=== PATIENT | male | born 1960 | race Caucasian/White ===

== ENCOUNTER 2020-12-20 16:36 | Inpatient (IN) | payer BC, OTHER ==
[~2020-12-20] VITALS: Ht 182 cm; Wt 69.4 kg
[2020-12-20] MEDS ORDERED: 1/2 NS IV SOLUTION 1,000 ML IV PRN (17:30)
[2020-12-20] MEDS ORDERED: ANTACID SUSP 30 ML UDC (MYLANTA) PO PRN (17:30)
[2020-12-20] MEDS ORDERED: ONDANSETRON 4 MG (ZOFRAN) ORAL DISSOLVE TAB SL PRN (17:30)
[2020-12-20] MEDS ORDERED: D5 1/2 NS 1000 ML IV SOLUTION 1,000 ML IV PRN (17:30)
[2020-12-20] MEDS: LORazepam INJ 2 MG/ML (ATIVAN) VIAL IV PRN ×5 (17:37→21:51)
[2020-12-20] MEDS: D5 1/2 NS W/KCL 20 MEQ/L 1,000 ML IV SCH (17:38)
[2020-12-20] MEDS ORDERED: CATHETER FLUSH 10 ML SYR IV PRN (17:45)
[2020-12-20] MEDS: THIAMINE INJECTION 100 MG, FOLIC ACID INJECTION 1 MG, MAGNESIUM SULFATE 2 GM, VITAMIN M... IV SCH ×5 (17:53)
[2020-12-20 18:02] LABS: BASOPHILS % (AUTO) 1 % (0-10); EOSINOPHILS # (AUTO) 0.1 10^3/uL (0.0-0.3); EOSINOPHILS % (AUTO) 1 % (0-10); HEMATOCRIT 39 % (40-54); HEMOGLOBIN 13.8 g/dL (13.3-17.7); LYMPHOCYTES # (AUTO) 0.3 10^3/uL (1.0-4.0); LYMPHOCYTES % (AUTO) 8 % (12-44); MEAN CORPUSCULAR HEMOGLOBIN 34 pg (25-34); MEAN CORPUSCULAR HGB CONC 36 g/dL (32-36); MEAN CORPUSCULAR VOLUME 94 fL (80-99); MEAN PLATELET VOLUME 10.1 fL (9.0-12.2); MONOCYTES # (AUTO) 0.7 10^3/uL (0.0-1.0); MONOCYTES % (AUTO) 15 % (0-12); NEUTROPHILS # (AUTO) 3.3 10^3/uL (1.8-7.8); NEUTROPHILS % (AUTO) 75 % (42-75); PLATELET COUNT 152 10^3/uL (130-400); WHITE BLOOD COUNT 4.4 10^3/uL (4.3-11.0)
[2020-12-20 18:17] LABS: ALBUMIN 4.1 GM/DL (3.2-4.5); CHLORIDE 91 MMOL/L (98-107); POTASSIUM 4.4 MMOL/L (3.6-5.0); SODIUM 126 MMOL/L (135-145)
[2020-12-20 18:18] LABS: AMMONIA 28 UMOL/L (11-32); INR 0.9 (0.8-1.4); PROTHROMBIN TIME PATIENT 12.3 SEC (12.2-14.7)
[2020-12-20 18:19] LABS: CALCIUM 9.6 MG/DL (8.5-10.1)
[2020-12-20 18:20] LABS: GLUCOSE 104 MG/DL (70-105); TOTAL PROTEIN 6.8 GM/DL (6.4-8.2)
[2020-12-20 18:21] LABS: CARBON DIOXIDE 23 MMOL/L (21-32)
[2020-12-20 18:23] LABS: ALKALINE PHOSPHATASE 94 U/L (40-136); CREATININE SERUM 0.65 MG/DL (0.60-1.30); GFR ESTIMATED 125
[2020-12-20 18:25] LABS: BUN/CREATININE RATIO 11
[2020-12-20 18:26] LABS: ALANINE AMINOTRANSFERASE 134 U/L (0-55)
[2020-12-20 18:43] LABS: LYMPHOCYTES % (MANUAL) 8 %; MONOCYTES % (MANUAL) 15 %; NEUTROPHILS % (MANUAL) 77 %; RBC MORPH NORMAL
[2020-12-20 18:53] LABS: BILIRUBIN,URINE NEGATIVE (NEGATIVE); CLARITY,URINE CLEAR; COLOR,URINE YELLOW; GLUCOSE, URINE (UA) NEGATIVE (NEGATIVE); KETONES,URINE TRACE (NEGATIVE); LEUKOCYTE ESTERASE ,URINE NEGATIVE (NEGATIVE); NITRITE,URINE NEGATIVE (NEGATIVE); PROTEIN,URINE 2+ (NEGATIVE)
[2020-12-20 19:06] LABS: AMORPHOUS SEDIMENT,UR FEW AMOR URATES /LPF; BACTERIA,URINE TRACE /HPF; HYALINE CASTS, URINE 0-2 /LPF; RBC,URINE 0-2 /HPF
[2020-12-20 19:56] VITALS: BP 142/92
--- NOTE | 2020-12-20 19:57 | History & Physical-Hospitalist ---
History of Present Illness HPI/Chief Complaint Mr. Salinas is a 50-year-old white male presented to the office at his 's insistence who accompanied him due to a recent history of falls. He reports his first fall on November 14 at which time he injured his low back. Following that time he has noted numbness in his legs and has had for 5 subsequent falls none from height. He denied headache but reported generalized weakness. He admitted to longstanding heavy alcohol consumption for which he reports he drinks Granda light 3-4 sixpacks per day. It has been 7 years since his last office visit and he only came in because of his 's insistence. Ports his appetite has been poor and he thinks he is probably lost 20 to 30 pounds by our office scales compared to 7 years ago he is down 40 pounds. He reports some nausea denies abdominal pain denies orange urine and he does not recall the last period of time he left without heavy alcohol consumption. [place] the [place] and has done so for many years is with no children denies DUIs and has had no previous hospital admission and was taking no medication ipnn-[id number] also denying illicit drug use. He reports onset of a tremor for at least the past several months worse with action less so at rest and noting that when he drinks his tremor goes away he denies knowledge of any fami ly history for tremor essential or Parkinson's disease. He denies night sweats chills fever orthopnea PND or pedal edema and denies abdominal distention is noted no melena or bright red blood per rectum. Date Seen 12/20/20 Time Seen by a Provider: 16:00 Attending Physician Raven Domínguez MD PCP Referring Physician Date of Admission Dec 20, 2020 at 16:49 Home Medications & Allergies Home Medications Reviewed patient Home Medication Reconciliation performed by pharmacy medication reconciliations photovoltaic installation technician and/or nursing. Patients Allergies have been reviewed. Allergies Allergies Coded Allergies No Known Drug Allergies (Unverified12/20/20) Past Poxffdu-Lmxdor-Qfyjxz Hx Patient Social History Tobacco Use?: No Smoking Status: Never a Smoker Use of E-Cig and/or Vaping dev: No Substance use?: No Alcohol Use?: Yes Alcohol type: Beer Alcohol Frequency: Daily Pt feels they are or have been: No Immunizations Up To Date First/Initial COVID19 Vaccinat: June ONE TIME DOSE VACCINATION Current Status Advance Directives: No Advance Directive Location: Home Communicates: Verbally Primary Language: Tajik Preferred Spoken Language: Tajik Implanted or Applied Medical D: None Review of Systems Constitutional: see HPI Physical Exam Physical Exam Vital Signs Vital Signs - First Documented 12/20/20 17:20 Pulse Ox 98 O2 Delivery Room Air Capillary Refill : Height, Weight, BMI Height: '" Weight: lbs. oz. kg; 219.44 BMI Method: General Appearance: Anxious, Mild Distress HEENT: Other (No scleral icterus extraocular muscles are intact with no difficulty with horizontal gaze or does seem to be a little bit of impairment with vertical gaze however pupils are equal round react to light and accommodation.) Neck: Full Range of Motion, Normal Inspection, Non Tender Respiratory: Chest Non Tender, Lungs Clear, Normal Breath Sounds, No Accessory Muscle Use, No Respiratory Distress Cardiovascular: Regular Rate, Rhythm, No Edema, No Gallop, No JVD, No Murmur, Normal Peripheral Pulses Gastrointestinal: Normal Bowel Sounds, No Organomegaly, No Pulsatile Mass, Non Tender, Soft, Other (Attention noted no telangiectasia or venous dilatation noted.) Neurologic/Psychiatric: Alert, diamond expert II-XII Norm as Tested (Mild agitation with some diaphoresis no evidence for alcohol on breath. There is no evidence for dysmetria with normal azskvo-mu-qvmj testing. Patient does have evidence for some intermittent asterixis and a tremor that is aggravated with activity course with no evidence for resting tremor. Patient has symmetrical weakness 4 out of 5 upper and lower extremities there is a white base somewhat halting gait there is some subjective diminishment in sensation in the lower extremities. Patellar reflexes are 2+ on the left 1+ on the right 1+ Achilles reflexes and 2+ biceps and brachioradialis reflexes bilaterally. X2 answers questions appropriately does not feel that he has been confused.), Other Results Results/Procedures Labs Laboratory Tests 12/20/20 17:50 Patient resulted labs reviewed. Assessment/Plan Admission Diagnosis 1.Alcohol use disorder with withdrawal cannot rule out Warnicke's for which the patient is at risk we will initiate IV thiamine Ativan and detox protocol. 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 Considering recent falls and low back pain lower extremity numbness will need to rule out DISABILITIES CAREGIVER as well as lumbar pathology will obtain MRI of the brain and L-spine in the morning with physical therapy consultation. 2. Hyponatremia likely secondary #1 the patient is eating without nausea will hold off on saline for now with repeat CMP in the morning however if his sodium is lower we will need to initiate intravenous normal saline. Complex medical management. Admission Status: Inpatient Order (span 2 midnights) Reason for Inpatient Admission: See #1 Critical Care Critically Ill Patient RAVEN DOMÍNGUEZ MD Dec 20, 2020 19:57
[2020-12-20 20:52] VITALS: BP 148/94
[2020-12-20 21:52] VITALS: BP 136/97
[2020-12-20 22:52] VITALS: BP 146/88
[2020-12-20] MEDS: LORazepam 1 MG (ATIVAN) TAB PO PRN (23:16)
[2020-12-20 23:22] VITALS: BP 146/88
[2020-12-20 23:52] VITALS: BP 128/76
[2020-12-21] VITALS (14 sets, daily range): BP systolic 119–166; BP diastolic 75–110
[2020-12-21] MEDS: D5 1/2 NS W/KCL 20 MEQ/L 1,000 ML IV SCH ×3 (00:36→12:11)
[2020-12-21] MEDS: LORazepam 1 MG (ATIVAN) TAB PO PRN ×5 (01:10→11:17)
[2020-12-21] MEDS: LORazepam INJ 2 MG/ML (ATIVAN) VIAL IV PRN ×3 (04:49→10:18)
[2020-12-21 05:56] LABS: ALBUMIN 3.6 GM/DL (3.2-4.5); POTASSIUM 4.2 MMOL/L (3.6-5.0)
[2020-12-21 05:57] LABS: CALCIUM 8.8 MG/DL (8.5-10.1)
[2020-12-21 06:00] LABS: BILIRUBIN,TOTAL 1.6 MG/DL (0.1-1.0)
[2020-12-21 06:02] LABS: CREATININE SERUM 0.73 MG/DL (0.60-1.30)
[2020-12-21] MEDS: THIAMINE INJECTION 100 MG, FOLIC ACID INJECTION 1 MG, MAGNESIUM SULFATE 2 GM, VITAMIN M... IV SCH ×5 (08:35)
[2020-12-21] MEDS ORDERED: GADOBUTROL 10 MMOL/10 ML (GADAVIST) VIAL IV ONE (09:15)
--- NOTE | 2020-12-21 10:16 | Diagnostic Imaging Report ---
CLINICAL INDICATIONS: Patient having weakness, alcohol withdrawal, and falls. EXAM: MRI of the brain performed without IV contrast. Sequences include sagittal T1, axial T2, axial flair, axial gradient echo, DWI, ADC map, and axial T1. COMPARISON: None. FINDINGS: There is motion artifact limiting evaluation of some sequences. There is no evidence of acute cerebral infarct, intracranial hemorrhage, or gross mass effect. The brain parenchymal volume appears appropriate for patient's age. There are focal and mildly confluent areas of high T2 signal white matter changes involving both cerebral hemispheres and periventricular regions, likely related to chronic small vessel ischemic disease. There is normal moseley-white matter distinction. There is no significant midline shift or herniation. The [place] vascular structures show no gross abnormality as visualized. The pituitary gland, sella, and suprasellar regions are unremarkable as visualized. There is prominence of the lateral and 3rd ventricles which appear mildly enlarged for degree of brain parenchymal volume loss. The basal cisterns are unremarkable. The skull, extracranial soft tissue, and orbits are unremarkable. There is mild mucosal thickening involving both maxillary sinuses, ethmoid sinus, and frontal sinus. There is minimal fluid involving the left mastoid air cells. IMPRESSION: 1: There is no evidence of an acute intracranial process. 2: The lateral and 3rd ventricles appear mildly enlarged compared to the degree of brain parenchymal volume loss. A communicating hydrocephalus such as normal pressure hydrocephalus should be excluded. 3: Chronic small vessel ischemic disease and mild leukoaraiosis. Dictated by: Dictated on workstation # [id number]
--- NOTE | 2020-12-21 11:12 | Diagnostic Imaging Report ---
CLINICAL INDICATION: Patient is having weakness, falls and alcohol withdrawal. Exam: MRI of the lumbar spine performed without IV contrast. Sagittal T2, sagittal T1, and sagittal T2 fat-sat. Of note, patient refused further imaging and axial sequences were unable to be obtained. Comparison: None. Findings: Assuming 5 lumbar type vertebra, there is small S1-S2 intervertebral disc. There is significant motion artifact involving the lumbar spine limiting evaluation. There is no acute lumbar spine fracture or dislocation. There are mild to moderately hypertrophic spurs involving the lumbar spine. There is lower lumbar spine facet arthropathy. The conus medullaris tip is not imaged in the axial dimension due to images not obtained. Otherwise, the visualized portions of the distal spinal cord, conus medullaris, and cauda equina have normal anatomic appearance. L1-L2 and L2-L3: There is no significant central spinal canal or neural foramen narrowing. L3-L4: There is mild diffuse disk bulge and far right lateral disk spurs. There is no significant central canal narrowing. There is mild right neural foramen narrowing. There is no significant left neural foramen narrowing. L4-L5: There is a diffuse disk bulge and mild bilateral facet arthropathy. There is no significant central canal narrowing. There is moderate right neural foramen narrowing and mild to moderate left neural foramen narrowing. L5-S1: There is a small posterior disk bulge with focal annular tear posteriorly. There is no significant central canal narrowing. There is mild bilateral neural foramen narrowing. There is moderate bilateral facet arthropathy. Impression: 1: Limited exam due to motion artifact and axial images unable to be obtained due to patient refusing. 2: There is no evidence of acute lumbar spine fracture or dislocation. 3: Lumbar spine degenerative disease, as described above. Dictated by: Dictated on workstation # [id number]
[2020-12-21] MEDS ORDERED: DexMEDEtomidine 250 ML DRIP 250 ML IV ONE (11:58)
[2020-12-21] MEDS: DexMEDEtomidine 250 ML DRIP 250 ML IV SCH ×2 (12:02→23:46)
--- NOTE | 2020-12-21 12:07 | Tele-ICU Consult ---
History of Present Illness History of Present Illness Date Seen by Provider: Dec 21, 2020 Time Seen by Provider: 12:07 Date of Admission Allergies and Home Medications Allergies Coded Allergies: No Known Drug Allergies (Unverified , 12/20/20) Past Medical/Social/Family Hx Patient Social History Tobacco Use?: No Smoking Status: Never a Smoker Use of E-Cig and/or Vaping dev: No Substance use?: No Alcohol Use?: Yes Alcohol type: Beer Alcohol Frequency: Daily Pt stated abuse/neglect: No Immunizations Up To Date Influenza Vaccine Up-to-Date: Yes; Up-to-Date First/Initial COVID19 Vaccinat: June ONE TIME DOSE VACCINATION Current Status Advance Directives: No Advance Directive Location: Home Communicates: Verbally Primary Language: Nicaraguan Preferred Spoken Language: Nicaraguan Implanted or Applied Medical D: None Review of Systems Constitutional: see HPI Sepsis Event Evaluation Height, Weight, BMI Height: '" Weight: lbs. oz. kg; 219.44 BMI Method: Exam Exam Patient acknowledged, consented, and participated in this virtual visit which was conducted using real time audio/video Vital Signs Date Time Temp Pulse Resp B/P (MAP) Pulse Ox O2 Delivery O2 Flow Rate FiO2 12/21/20 11:30 86 10 146/110 (122) 100 Nasal Cannula 2.00 12/21/20 08:00 Room Air 12/21/20 08:00 36.4 88 18 142/78 (99) 99 Nasal Cannula 12/21/20 07:50 Nasal Cannula 2.00 12/21/20 06:53 76 12/21/20 04:45 Room Air 12/21/20 03:29 36.3 79 18 126/82 (97) 95 Room Air 12/21/20 01:00 80 12/21/20 00:52 82 29 145/92 (109) 96 Room Air 12/20/20 23:57 Room Air 12/20/20 23:52 82 25 128/76 (93) 96 Room Air 12/20/20 23:22 36.8 92 20 146/88 (107) 95 Room Air 12/20/20 22:52 98 12 146/88 (109) 99 Room Air 12/20/20 21:52 103 14 136/97 (111) 97 Room Air 12/20/20 20:52 118 11 148/94 (106) 96 Room Air 12/20/20 20:00 Room Air 12/20/20 19:56 38.0 112 20 142/92 (109) 96 Room Air 12/20/20 19:00 111 12/20/20 17:20 98 Room Air I & O 12/21/20 06:59 Intake Total 2465.2 ml Output Total 600 ml Balance 1865.2 ml Height & Weight Height: '" Weight: lbs. oz. kg; 219.44 BMI Method: General Appearance: Anxious, Mild Distress HEENT: Other (No scleral icterus extraocular muscles are intact with no difficulty with horizontal gaze or does seem to be a little bit of impairment with vertical gaze however pupils are equal round react to light and accommo dation.) Neck: Full Range of Motion, Normal Inspection, Non Tender Respiratory: Chest Non Tender, Lungs Clear, Normal Breath Sounds, No Accessory Muscle Use, No Respiratory Distress Cardiovascular: Regular Rate, Rhythm, No Edema, No Gallop, No JVD, No Murmur, Normal Peripheral Pulses Neurologic/Psychiatric: Alert, roll grinder II-XII Norm as Tested (Mild agitation with some diaphoresis no evidence for alcohol on breath. There is no evidence for dysmetria with normal lxwuhg-yn-npzu testing. Patient does have evidence for some intermittent asterixis and a tremor that is aggravated with activity course with no evidence for resting tremor. Patient has symmetrical weakness 4 out of 5 upper and lower extremities there is a white base somewhat halting gait there is some subjective diminishment in sensation in the lower extremities. Patellar reflexes are 2+ on the left 1+ on the right 1+ Achilles reflexes and 2+ biceps and brachioradialis reflexes bilaterally. X2 answers questions appropriately does not feel that he has been confused.), Other Results Lab Laboratory Tests 12/20/20 17:50 12/21/20 05:25 Assessment/Plan Assessment/Plan (Tele-ICU Physician , consultation) Available chart/ vitals / labs / Images reviewed H&P is from ER notes Patient's information available about PMH, Shx, Fhx allergy reviewed in EMR. ROS as per chart and RN report Now in ICU, hemodynamically stable , agitated Video assessment done using teleICU camera, rest of exam as per RN Discussed with RN. Consultants: Patient admitted 12/20 - s/p falls 12/21 - to ICU - with DT A/P ETOH abuse / withdrawal syndrome / DT - reported hallucinations. No seizures - monitor -Continue supportive care on CIWA protocol- cont benzo, add phenobarb , prn precedex -monitor vitals -Thiamine and folate Hyponatremia - TSH WNL , slow rise noted - continue to monitor Recent falls and low back pain lower extremity numbness - ongoing w/up by PCP Lines : periph (Central Line Necessity Reviewed) Castillo: OG: Nutrition: po Analgesia: Anxiety/ delirium VTE Prophylaxis: scd , lovenox if no procedures needed Stress Ulcer Prophylaxis: na - PO Glycemic Control: Plans in collaboration with bedside consultants and IM MDs. Discussed with RN to reach out if any questions or concerns A total of 31 minutes of critical care time was devoted to this patient today, required to treat and/or prevent further deterioration of critical care condition ( as above ) . ESTELLE PALUMBO MD Dec 21, 2020 12:07
--- NOTE | 2020-12-21 14:28 | Physical Therapy Progress Note ---
Therapy Progress Note Patient currently on Hold due to increase in sedation due to agitation. PT will evaluate patient in AL[facility] Echols PT Dec 21, 2020 14:28
--- NOTE | 2020-12-21 15:58 | Progress Note - Hospitalist ---
Subjective HPI/CC On Admission Date Seen by Provider: Dec 21, 2020 Time Seen by Provider: 09:30 Mr. Salinas is a 50-year-old white male presented to the office at his 's insistence who accompanied him due to a recent history of falls. He reports his first fall on November 14 at which time he injured his low back. Following that ti me he has noted numbness in his legs and has had for 5 subsequent falls none from height. He denied headache but reported generalized weakness. He admitted to longstanding heavy alcohol consumption for which he reports he drinks Granda light 3-4 sixpacks per day. It has been 7 years since his last office visit and he only came in because of his 's insistence. Ports his appetite has been poor and he thinks he is probably lost 20 to 30 pounds by our office scales compared to 7 years ago he is down 40 pounds. He reports some nausea denies abdominal pain denies orange urine and he does not recall the last period of time he left without heavy alcohol consumption. [place] the [place] and has done so for many years is with no children denies DUIs and has had no previous hospital admission and was taking no medication [id number] also denying illicit drug use. He reports onset of a tremor for at least the past several months worse with action less so at rest and noting that when he drinks his tremor goes away he denies knowledge of any family history for tremor essential or Parkinson's disease. He denies night sweats chills fever orthopnea PND or pedal edema and denies abdominal distention is noted no melena or bright red blood per rectum. Subjective/Events-last exam He is confused. He denies pain. He is not nauseous. He denies hallucinations. He says that he drinks up to 20 beers per every day. Objective Exam Vital Signs Vital Signs Date Time Temp Pulse Resp B/P (MAP) Pulse Ox O2 Delivery O2 Flow Rate FiO2 12/21/20 14:20 Vapotherm 40.00 40.00 12/21/20 13:39 98 40 12/21/20 13:00 66 12/21/20 12:00 13 156/102 (120) 12/21/20 12:00 36.7 Capillary Refill : General Appearance: WD/WN, Anxious, Mild Distress (tremulous) Respiratory: Lungs Clear, Normal Breath Sounds, No Respiratory Distress Cardiovascular: Regular Rate, Rhythm, No Edema, No Murmur Gastrointestinal: Normal Bowel Sounds, Non Tender, Soft Extremity: Normal Inspection, Non Tender, No Pedal Edema Neurologic/Psychiatric: Alert, Oriented x3, No Motor/Sensory Deficits, Normal Mood/Affect Skin: Normal Color, Warm/Dry Results/Procedures Lab Laboratory Tests 12/20/20 17:50 12/21/20 05:25 Patient resulted labs reviewed. Imaging: Reviewed Imaging Report Assessment/Plan Assessment and Plan Assess & Plan/Chief Complaint Alcohol withdrawal Alcohol dependence Alcoholic hepatitis Alcohol myopathy Hyponatremia CIWA protocol Transfer to ICU May need addition of Precedex due to agitation Adding Vapotherm due to severe hypoxia while sleeping Sodium improving Transition to normal saline Consult TeleICU PT/OT SW consulted DVT prophylaxis: Lovenox Critical Care Critically Ill Patient Diagnosis/Problems Diagnosis/Problems (1) Alcohol withdrawal Status: Acute Qualifiers: Complication of substance-induced condition: with delirium Qualified Codes: F10.231 - Alcohol dependence with withdrawal delirium (2) Alcohol dependence Status: Acute Qualifiers: Substance use status: in withdrawal Complication of substance-induced condition: with delirium Qualified Codes: F10.231 - Alcohol dependence with withdrawal delirium (3) Alcoholic hepatitis without ascites Status: Acute (4) Alcohol myopathy Status: Acute (5) Recurrent falls Status: Acute ANIL WYATT MD Dec 21, 2020 15:58
[2020-12-21] MEDS ORDERED: ENOXAPARIN 40 MG/0.4 ML (LOVENOX) SYR ONE (16:10)
[2020-12-21] MEDS: NS IV 1000 ML 1,000 ML IV SCH ×2 (16:12→23:46)
[2020-12-21] MEDS: ENOXAPARIN 40 MG/0.4 ML (LOVENOX) SYR SC SCH (16:20)
[2020-12-21] MEDS: PHENobarbital 20MG/5ML ELIXIR UD PO SCH (20:49)
[2020-12-22] VITALS (24 sets, daily range): BP systolic 96–178; BP diastolic 68–114
[2020-12-22 05:23] LABS: BASOPHILS # (AUTO) 0.1 10^3/uL (0.0-0.1); BASOPHILS % (AUTO) 1 % (0-10); MEAN CORPUSCULAR HGB CONC 34 g/dL (32-36)
[2020-12-22 05:26] LABS: EOSINOPHILS # (AUTO) 0.1 10^3/uL (0.0-0.3); EOSINOPHILS % (AUTO) 1 % (0-10); HEMATOCRIT 42 % (40-54); HEMOGLOBIN 14.4 g/dL (13.3-17.7); LYMPHOCYTES # (AUTO) 0.6 10^3/uL (1.0-4.0); LYMPHOCYTES % (AUTO) 10 % (12-44); MEAN CORPUSCULAR HEMOGLOBIN 33 pg (25-34); MEAN CORPUSCULAR VOLUME 97 fL (80-99); MEAN PLATELET VOLUME 10.5 fL (9.0-12.2); MONOCYTES # (AUTO) 0.7 10^3/uL (0.0-1.0); MONOCYTES % (AUTO) 11 % (0-12); NEUTROPHILS % (AUTO) 77 % (42-75); PLATELET COUNT 119 10^3/uL (130-400); WHITE BLOOD COUNT 6.4 10^3/uL (4.3-11.0)
[2020-12-22 05:37] LABS: ALBUMIN 3.7 GM/DL (3.2-4.5); POTASSIUM 3.8 MMOL/L (3.6-5.0)
[2020-12-22 05:39] LABS: CALCIUM 9.1 MG/DL (8.5-10.1)
[2020-12-22 05:40] LABS: TOTAL PROTEIN 6.2 GM/DL (6.4-8.2)
[2020-12-22 05:42] LABS: BILIRUBIN,TOTAL 1.1 MG/DL (0.1-1.0)
[2020-12-22 05:43] LABS: PHOSPHORUS 3.3 MG/DL (2.3-4.7)
[2020-12-22 05:44] LABS: CREATININE SERUM 0.64 MG/DL (0.60-1.30)
[2020-12-22 05:46] LABS: MAGNESIUM 2.2 MG/DL (1.6-2.4)
[2020-12-22] MEDS: MAGNESIUM 1 GM/100 ML IVPB 100 ML IV SCH (05:50)
[2020-12-22] MEDS: KCL 20 MEQ TAB (K-DUR) PO SCH (05:50)
[2020-12-22] MEDS: POTASSIUM CL 10MEQ/50ML IVPB 50 ML IV SCH (05:50)
[2020-12-22] MEDS: LORazepam 1 MG (ATIVAN) TAB PO PRN ×5 (07:34→18:12)
[2020-12-22] MEDS: PHENobarbital 20MG/5ML ELIXIR UD PO SCH ×2 (07:57→19:46)
[2020-12-22] MEDS: ONDANSETRON 4 MG/2 ML (SDV) Z0FRAN IV PRN ×2 (09:06→12:12)
[2020-12-22] MEDS: THIAMINE INJECTION 100 MG, FOLIC ACID INJECTION 1 MG, MAGNESIUM SULFATE 2 GM, VITAMIN M... IV SCH ×5 (09:34)
[2020-12-22] MEDS: DexMEDEtomidine 250 ML DRIP 250 ML IV SCH (09:36)
--- NOTE | 2020-12-22 09:38 | Diagnostic Imaging Report ---
INDICATION: Hypoxia. FINDINGS: Portable chest. The lungs are well-aerated and clear. The heart is not enlarged. No pulmonary edema or hilar adenopathy. No pneumothorax or pleural effusions. No bony abnormalities. IMPRESSION: Normal portable chest. Dictated by: Dictated on workstation # [id number]
--- NOTE | 2020-12-22 09:50 | Progress Note ---
JULISSA GOMEZ MED STUDENT 12/22/20 0950: Subjective Date Seen by a Provider: Dec 22, 2020 Time Seen by a Provider: 07:50 Subjective/Events-last exam Patient sedated on precedex gtt. Tolerating vapotherm. Night RN reports going up on precedex gtt and had not administered ativan. Vitals stable per bedside monitor. No seizure activity noticed by nursing. Patient is disoriented and was able to answer some questions. Denied chest pain, SOB, hallucinations, vomiting, and headaches. Review of Systems General: No Chills, No Night Sweats; Other HEENT: No Head Aches, No Visual Changes Pulmonary: No Dyspnea, No Cough Cardiovascular: No: Chest Pain, Palpitations Gastrointestinal: No: Nausea, Vomiting Genitourinary: No Dysuria, No Frequency Musculoskeletal: No: neck pain, back pain Neurological: No: Weakness, Numbness Objective Exam Last Set of Vital Signs Vital Signs Date Time Temp Pulse Resp B/P (MAP) Pulse Ox O2 Delivery O2 Flow Rate FiO2 12/22/20 09:36 62 106/86 12/22/20 08:36 Nasal Cannula 2.00 12/22/20 08:07 35.3 12/22/20 07:51 100 30 12/22/20 06:00 10 Capillary Refill : I&O Intake and Output 12/22/20 00:00 Intake Total 2415.2 ml Output Total 3975 ml Balance -1559.8 ml Intake Oral 400 ml IV Total 2015.2 ml Output Urine Total 3975 ml # Voids 1 General: Other (Disoriented. Older gentlmen appearing older than stated age resting comfortably sedated on precedex gtt.) HEENT: Atraumatic, PERRLA, EOMI, Mucous Memb Moist/[place] Neck: Supple, No LAD Lungs: Clear to Auscultation, Normal Air Movement Heart: Regular Rate, No Murmurs Abdomen: Normal Bowel Sounds, Soft, No Tenderness Extremities: No Clubbing, No Cyanosis, No Edema, Normal Pulses Skin: No Rashes, No Breakdown, No Significant Lesion Neuro: Other ( Cranial nerves 2-12 grossly intact. Moves all four extremities on command. ) Psych/Mental Status: Other (Disoriented to time, place, and situation. No hallucinations reported.) Results Lab Laboratory Tests 12/22/20 04:58: White Blood Count 6.4, Red Blood Count 4.31, Hemoglobin 14.4, Hematocrit 42, Mean Corpuscular Volume 97, Mean Corpuscular Hemoglobin 33, Mean Corpuscular Hemoglobin Concent 34, Red Cell Distribution Width 12.5, Platelet Count 119L, Mean Platelet Volume 10.5, Immature Granulocyte % (Auto) 1, Neutrophils (%) (Auto) 77H, Lymphocytes (%) (Auto) 10L, Monocytes (%) (Auto) 11, Eosinophils (%) (Auto) 1, Basophils (%) (Auto) 1, Neutrophils # (Auto) 5.0, Lymphocytes # (Auto) 0.6L, Monocytes # (Auto) 0.7, Eosinophils # (Auto) 0.1, Basophils # (Auto) 0.1, Immature Granulocyte # (Auto) 0.0, Percent Immature Platelet Fraction 7.8H, Sodium Level 132L, Potassium Level 3.8, Chloride Level 101, Carbon Dioxide Level 22, Anion Gap 9, Blood Urea Nitrogen 6L, Creatinine 0.64, Estimat Glomerular Brown tration Rate 128, BUN/Creatinine Ratio 9, Glucose Level 124H, Calcium Level 9.1, Corrected Calcium 9.3, Phosphorus Level 3.3, Magnesium Level 2.2, Total Bilirubin 1.1H, Aspartate Amino Transf (AST/SGOT) 73H, Alanine Aminotransferase (ALT/SGPT) 87H, Alkaline Phosphatase 87, Total Protein 6.2L, Albumin 3.7 Assessment/Plan Assessment/Plan Assess & Plan/Chief Complaint Alcohol withdrawal -CIWA protocol -phenobarbital -prn precedex agitation/restlessness -banana bag x 3 Hyponatremia -slowly correcting, Na 132 today -NS at 100ml/hr -continue to monitor Transaminitis -trending down -continue to monitor Low back pain S/P multiple recent falls -MRI lumbar spine shows multilevel degenerative disease -study limited due to motion artifact Alcohol use disorder -encourage alcohol cessation when detoxed DVT prophylaxis -lovenox Brain MRI w/o contrast shows no acute intracranial process. NPH needs to be excluded. ANIYA ROJAS DO 12/23/20 0524: Supervisory-Addendum Brief Verification & Attestation Participated in pt care: history, MDM, physical Personally performed: exam, history, MDM, supervision of care Care discussed with: Medical Student Procedures: n/a Results interpretation: Verified all documentation Verification and Attestation of Medical Student E/M Service A medical student performed and documented this service in my presence. I reviewed and verified all information documented by the medical student and made modifications to such information, when appropriate. I personally performed the physical exam and medical decision making. Aniya Rojas, Dec 23, 2020,05:24 JULISSA GOMEZ MED STUDENT Dec 22, 2020 09:50 ANIYA ROJAS DO Dec 23, 2020 05:24
--- NOTE | 2020-12-22 11:02 | Tele-ICU Progress Note ---
Subjective Date Seen by a Provider: Dec 22, 2020 Time Seen by a Provider: 10:14 Sepsis Event Evaluation Height, Weight, BMI Height: '" Weight: lbs. oz. kg; 23.84 BMI Method: Exam Exam Patient acknowledged, consented, and participated in this virtual visit which was conducted using real time audio/video Vital Signs Date Time Temp Pulse Resp B/P (MAP) Pulse Ox O2 Delivery O2 Flow Rate FiO2 12/22/20 10:00 67 11 144/96 (112) 100 Nasal Cannula 2.00 12/22/20 09:36 62 106/86 12/22/20 09:00 80 21 157/108 (124) 97 Nasal Cannula 2.00 12/22/20 08:36 Nasal Cannula 2.00 12/22/20 08:23 Vapotherm 25.00 30.00 12/22/20 08:07 35.3 12/22/20 08:00 63 11 158/105 (122) 100 Vapotherm 40.00 30.00 12/22/20 07:51 100 Vapotherm 40.00 30 12/22/20 07:11 100 Vapotherm 30.00 30 12/22/20 07:00 74 45 157/97 (117) 100 Vapotherm 40.00 30.00 12/22/20 06:25 65 12/22/20 06:00 65 10 145/105 (118) 100 Vapotherm 40.00 30.00 12/22/20 05:00 68 15 166/108 (127) 100 Vapotherm 40.00 30.00 12/22/20 04:15 36.1 Vapotherm 40.00 30.00 12/22/20 04:10 Vapotherm 40.00 30 12/22/20 04:00 62 11 145/114 (124) 100 Vapotherm 40.00 30.00 12/22/20 03:00 62 10 128/90 (103) 100 Vapotherm 40.00 30.00 12/22/20 02:00 59 10 159/97 (117) 100 Vapotherm 40.00 30.00 12/22/20 01:00 57 11 158/103 (121) 100 Vapotherm 40.00 30.00 12/22/20 01:00 57 12/22/20 00:00 55 10 161/100 (120) 100 Vapotherm 40.00 30.00 12/21/20 23:51 36.2 Vapotherm 40.00 30.00 12/21/20 23:47 Vapotherm 40.00 30 12/21/20 23:46 57 155/98 12/21/20 23:00 56 152/98 (116) 100 Vapotherm 40.00 30.00 12/21/20 22:23 100 Vapotherm 30.00 40 12/21/20 22:13 56 13 166/92 (116) 97 Vapotherm 40.00 30.00 12/21/20 21:00 54 10 158/101 (120) 95 Vapotherm 40.00 30.00 12/21/20 20:22 35.7 Vapotherm 40.00 30.00 12/21/20 20:15 Vapotherm 40.00 30 12/21/20 20:00 58 11 145/91 (109) 100 Vapotherm 40.00 30.00 12/21/20 19:00 58 11 135/93 (107) 100 Vapotherm 40.00 30.00 12/21/20 19:00 58 12/21/20 18:56 100 Vapotherm 40.00 40 12/21/20 16:00 58 9 137/86 (103) 98 Vapotherm 40.00 40.00 12/21/20 16:00 Vapotherm 40.00 40 12/21/20 15:00 58 10 137/80 (99) 99 Vapotherm 40.00 40.00 12/21/20 14:20 Vapotherm 40.00 40.00 12/21/20 14:00 59 9 119/75 (90) 91 Nasal Cannula 2.00 12/21/20 13:39 98 Vapotherm 40.00 40 12/21/20 13:00 65 10 127/86 (100) 99 Nasal Cannula 2.00 12/21/20 13:00 66 12/21/20 12:00 90 13 156/102 (120) 100 Nasal Cannula 2.00 12/21/20 12:00 36.7 12/21/20 12:00 Nasal Cannula 4.00 12/21/20 11:30 86 10 146/110 (122) 100 Nasal Cannula 2.00 I & O 12/22/20 07:00 Intake Total 300 ml Output Total 5025 ml Balance -4725 ml Height & Weight Height: '" Weight: lbs. oz. kg; 23.84 BMI Method: General Appearance: WD/WN, Anxious, Mild Distress (tremulous) HEENT: Other (No scleral icterus extraocular muscles are intact with no difficulty with horizontal gaze or does seem to be a little bit of impairment with vertical gaze however pupils are equal round react to light and accommodation.) Neck: Full Range of Motion, Normal Inspection, Non Tender Respiratory: Lungs Clear, Normal Breath Sounds, No Respiratory Distress Cardiovascular: Regular Rate, Rhythm, No Edema, No Murmur Extremity: Normal Inspection, Non Tender, No Pedal Edema Neurologic/Psychiatric: Alert, Oriented x3, No Motor/Sensory Deficits, Normal Mood/Affect Skin: Normal Color, Warm/Dry Results Lab Laboratory Tests 12/20/20 17:50 12/21/20 05:25 12/22/20 04:58 Assessment/Plan Assessment/Plan (Tele-ICU Physician , Progress Note ) Available chart/ vitals / labs / Images reviewed Video assessment done using teleICU camera, rest of exam as per RN Discussed with RN , EXAM PER RN Events overnight : precedex, off ativan , PLACED ON BVAPOTHERM 40% 30 l Afebrile I/O = NEG 1500 Drips: PRECEDEX Pressors: , hemodynamically stable Consultants: 12/20 - s/p falls 12/21 - to ICU - with DT, AT NIGHT precedex, off ativan , PLACED ON BVAPOTHERM 40% 30 l 12/22 - STILL CONFUSED , WEANED TO 2 l nc Hospital course: A/P ETOH abuse / withdrawal syndrome / DT - reported hallucinations. No seizures - monitor -Continue supportive care on [facility] protocol- cont benzo, added phenobarb 60 BID 12/21 , prn precedex -monitor vitals -Thiamine and folate hypoxia overnight - probably due to low TV with seation , will check CXR , monitor for YULIA Hyponatremia - TSH WNL , slow appropriate Rise noted - continue to monitor Recent falls and low back pain lower extremity numbness - ongoing w/up by PCP Lines : periph (Central Line Necessity Reviewed) Castillo: OG: Nutrition: po Analgesia: Anxiety/ delirium VTE Prophylaxis: scd , lovenox Stress Ulcer Prophylaxis: na - PO Glycemic Control: Plans in collaboration with bedside consultants and IM MDs. Discussed with RN to reach out if any questions or concerns A total of 31 minutes of critical care time was devoted to this patient today, required to treat and/or prevent further deterioration of critical care condition ( as above ) . ESTELLE PALUMBO MD Dec 22, 2020 11:02
[2020-12-22] MEDS: NS IV 1000 ML 1,000 ML IV SCH ×2 (12:12→22:43)
--- NOTE | 2020-12-22 13:22 | Progress Note - Hospitalist ---
Subjective HPI/CC On Admission Date Seen by Provider: Dec 22, 2020 Time Seen by Provider: 08:50 Mr. Salinas is a 50-year-old white male presented to the office at his 's insistence who accompanied him due to a recent history of falls. He reports his first fall on November 14 at which time he injured his low back. Following that ti me he has noted numbness in his legs and has had for 5 subsequent falls none from height. He denied headache but reported generalized weakness. He admitted to longstanding heavy alcohol consumption for which he reports he drinks Granda light 3-4 sixpacks per day. It has been 7 years since his last office visit and he only came in because of his 's insistence. Ports his appetite has been poor and he thinks he is probably lost 20 to 30 pounds by our office scales compared to 7 years ago he is down 40 pounds. He reports some nausea denies abdominal pain denies orange urine and he does not recall the last period of time he left without heavy alcohol consumption. [place] the mall and has done so for many years is with no children denies DUIs and has had no previous hospital admission and was taking no medication [id number] also denying illicit drug use. He reports onset of a tremor for at least the past several months worse with action less so at rest and noting that when he drinks his tremor goes away he denies knowledge of any family history for tremor essential or Parkinson's disease. He denies night sweats chills fever orthopnea PND or pedal edema and denies abdominal distention is noted no melena or bright red blood per rectum. Subjective/Events-last exam He remains confused. He denies pain. He denies trouble breathing. Objective Exam Vital Signs Vital Signs Date Time Temp Pulse Resp B/P (MAP) Pulse Ox O2 Delivery O2 Flow Rate FiO2 12/22/20 13:05 63 12/22/20 11:31 Nasal Cannula 0.50 12/22/20 11:26 100 12/22/20 11:25 35.6 12/22/20 10:00 11 144/96 (112) 12/22/20 07:51 30 Capillary Refill : General Appearance: No Apparent Distress, WD/WN Respiratory: Lungs Clear, Normal Breath Sounds, No Respiratory Distress Cardiovascular: Regular Rate, Rhythm, No Edema, No Murmur Gastrointestinal: Normal Bowel Sounds, Non Tender, Soft Extremity: Normal Inspection, Non Tender, No Pedal Edema Neurologic/Psychiatric: Alert, Disoriented, Motor Weakness Skin: Normal Color, Warm/Dry Results/Procedures Lab Laboratory Tests 12/22/20 04:58 Patient resulted labs reviewed. Imaging: Reviewed Imaging Report Assessment/Plan Assessment and Plan Assess & Plan/Chief Complaint Alcohol withdrawal Alcohol dependence Alcoholic hepatitis Alcohol myopathy Hyponatremia Obstructive sleep apnea CIWA protocol Ativan as needed Precedex Phenobarbital Requiring high flow oxygen due to sleep apnea LFTs improving Sodium improving Continue normal saline Consult TeleICU PT/OT SW consulted MRI concerning for possible normal pressure hydrocephalus Consider further evaluation once through acute withdrawal DVT prophylaxis: Lovenox Critical Care Critically Ill Patient Diagnosis/Problems Diagnosis/Problems (1) Alcohol withdrawal Status: Acute Qualifiers: Complication of substance-induced condition: with delirium Qualified Codes: F10.231 - Alcohol dependence with withdrawal delirium (2) Alcohol dependence Status: Acute Qualifiers: Substance use status: in withdrawal Complication of substance-induced condition: with delirium Qualified Codes: F10.231 - Alcohol dependence with withdrawal delirium (3) Alcoholic hepatitis without ascites Status: Acute (4) Alcohol myopathy Status: Acute (5) Recurrent falls Status: Acute ANIL WYATT MD Dec 22, 2020 13:22
--- NOTE | 2020-12-22 14:39 | Physical Therapy Evaluation ---
PT Evaluation-General Medical Diagnosis Admission Date Dec 20, 2020 at 16:49 Medical Diagnosis: Frequent Falls, EToH abuse Onset Date: Dec 20, 2020 Therapy Diagnosis Therapy Diagnosis: Gait Deficit Precautions Precautions/Isolations: Seizure, Fall Prevention, Standard Precautions Referral Physician: Dr. Meek Reason for Referral: Evaluation/Treatment Medical History Pertinent Medical History: Alcoholism Social History Home: Single Level Current Living Status: Significant Other Entry Into Home: Stairs With Railing PT Steps Into Home: 2 PT Steps Inside Home: 13 Prior Prior Level of Function SCALE: Activities may be completed with or without assistive devices. 5-[id number]-[id number] completes the activity by him/herself with no assistance from a helper. 5-Set-up or Clean-up Assistance-helper sets up or cleans up; patient completes activity. Monroe assists only prior to or following the activity. 4-Supervision or Touching Assistance-helper provides verbal cues and/or touching/steadying and/or contact guard assistance as patient completes activity. Assistance may be provided throughout the activity or intermittently. 3-Partial/Moderate Assistance-helper does LESS THAN HALF the effort. Monroe lifts, holds or supports trunk or limbs, but provides less than half the effort. 2-Substantial/Maximal Assistance-helper does MORE THAN HALF the effort. Monroe lifts or holds trunk or limbs and provides more than half the effort. 6-Txkzjqwld-mslagl does ALL the effort. Patient does none of the effort to complete the activity. Or, the assistance of 2 or more helpers is required for the patient to complete the activity. If activity was not attempted, code reason: 7-Patient Refused. 9-Not Applicable-not attempted and the patient did not perform the activity before the current illness, exacerbation or injury. 10-Not Attempted due to Environmental Limitations-(lack of equipment, weather restraints, etc.). 88-Not Attempted due to Medical Conditions or Safety Concerns. Bed Mobility: 6 Transfers (B,C,W/C): 6 Gait: 6 Stairs: 6 Indoor Mobility (Ambulation): Independent Stairs: Independent Prior Devices Use: None PT Evaluation-Current Subjective Patient very drowsy, nurse gave approval. Patient nods approval to perform PT evaluation, then a couple of seconds later states, "Can we do this when I haven't been drinking?" Objective Patient Orientation: Person, Place, Time, Situation Attachments: Oxygen, Castillo Catheter, IV ROM/Strength ROM Lower Extremities AROM appears to be WFLs bilaterally for all planes, however due to sedation patient is having difficulty following commands to perform movements appr opriately. Strength Lower Extremities Grossly 3/5 bilaterally throughout via visual observation, however patient unable to follow commands to perform MMT accurately. Sensory Sensation Right Lower Extremit: Intact Sensation Left Lower Extremity: Intact Transfers Roll Left to Right (QC): 2 Sit to Lying (QC): 2 Lying to Sitting/Side of Bed(Q: 2 Sit to Stand (QC): 2 Gait Does the Patient Walk?: No and Walking Goal IS indicated Mode of Locomotion: Walk Anticipated Mode of Locomotion: Walk Walk 10 feet (QC): 88 Balance Sitting Static: Poor Sitting Dynamic: Poor Standing Static: Poor Standing Dynamic: Poor Assessment/Needs Patient lying supine in bed upon PT arrival, agreeable to treatment. Patient very sedated still and nurse reports he has had trouble waking up. Patient opens his eyes upon tactile contact from PT, however goes immediately back to sleep. Patient eventually awakens enough to minimally participate. Patient performs all observed bed mobility and transfers with max/total assistance. Patient able to sit at the edge of the bed ~ 5 minutes, then requires max A for return to bed. Patient in bed post treatment with all needs met, nursing notified, call light in hand. Rehab Potential: Fair PT Short Term Goals Short Term Goals Time Frame: Jan 05, 2021 PT Plan Problem List Problem List: Activity Tolerance, Functional Strength, Safety, Balance, Gait, Transfer, Bed Mobility, ROM Treatment/Plan Treatment Plan: Continue Plan of Care Treatment Plan: Bed Mobility, Education, Functional Activity Jem, Functional Strength, Group Therapy, Gait, Safety, Therapeutic Exercise, Transfers Treatment Duration: Mar 02, 2021 Frequency: 6 times per week Estimated Hrs Per Day: .25 hour per day Safety Risks/Education Patient Education: Transfer Techniques, Safety Issues Teaching Recipient: Patient Teaching Methods: Demonstration, Discussion Response to Teaching: Reinforcement Needed Time/GCodes Time In: 923 Time Out: 946 Total Billed Treatment Time: 23 Total Billed Treatment Visit, CARLIN So JOHN A PT Dec 22, 2020 14:39
[2020-12-22] MEDS: LORazepam INJ 2 MG/ML (ATIVAN) VIAL IV PRN ×3 (15:10→22:43)
[2020-12-22] MEDS: ENOXAPARIN 40 MG/0.4 ML (LOVENOX) SYR SC SCH (16:04)
[2020-12-23] VITALS (21 sets, daily range): BP systolic 115–160; BP diastolic 52–101
[2020-12-23] MEDS: DexMEDEtomidine 250 ML DRIP 250 ML IV SCH ×2 (01:07→08:49)
[2020-12-23 05:42] LABS: BASOPHILS % (AUTO) 0 % (0-10); EOSINOPHILS # (AUTO) 0.1 10^3/uL (0.0-0.3); EOSINOPHILS % (AUTO) 1 % (0-10); HEMATOCRIT 38 % (40-54); HEMOGLOBIN 13.3 g/dL (13.3-17.7); LYMPHOCYTES # (AUTO) 0.9 10^3/uL (1.0-4.0); LYMPHOCYTES % (AUTO) 10 % (12-44); MEAN CORPUSCULAR HEMOGLOBIN 33 pg (25-34); MEAN CORPUSCULAR HGB CONC 35 g/dL (32-36); MEAN CORPUSCULAR VOLUME 96 fL (80-99); MEAN PLATELET VOLUME 10.7 fL (9.0-12.2); MONOCYTES % (AUTO) 11 % (0-12); NEUTROPHILS # (AUTO) 7.2 10^3/uL (1.8-7.8); NEUTROPHILS % (AUTO) 77 % (42-75); PLATELET COUNT 109 10^3/uL (130-400); WHITE BLOOD COUNT 9.3 10^3/uL (4.3-11.0)
[2020-12-23 05:55] LABS: ALBUMIN 3.1 GM/DL (3.2-4.5); POTASSIUM 3.3 MMOL/L (3.6-5.0)
[2020-12-23 05:57] LABS: CALCIUM 8.5 MG/DL (8.5-10.1)
[2020-12-23 05:58] LABS: TOTAL PROTEIN 5.4 GM/DL (6.4-8.2)
[2020-12-23 06:00] LABS: BILIRUBIN,TOTAL 0.9 MG/DL (0.1-1.0)
[2020-12-23] MEDS: KCL 20 MEQ TAB (K-DUR) PO SCH (06:00)
[2020-12-23] MEDS: POTASSIUM CL 10MEQ/50ML IVPB 50 ML IV SCH (06:00)
[2020-12-23 06:01] LABS: PHOSPHORUS 3.8 MG/DL (2.3-4.7)
[2020-12-23 06:02] LABS: CREATININE SERUM 0.57 MG/DL (0.60-1.30)
[2020-12-23 06:05] LABS: MAGNESIUM 2.2 MG/DL (1.6-2.4)
[2020-12-23] MEDS: MAGNESIUM 1 GM/100 ML IVPB 100 ML IV SCH (06:07)
[2020-12-23 06:13] LABS: SMEAR SCAN COMMENT YES
[2020-12-23] MEDS ORDERED: KCL 20 MEQ TAB (K-DUR) PO ONE (08:00)
[2020-12-23] MEDS: NS IV 1000 ML 1,000 ML IV SCH ×2 (08:49→18:47)
--- NOTE | 2020-12-23 08:56 | Progress Note ---
JULISSA GOMEZ MED STUDENT 12/23/20 0856: Subjective Date Seen by a Provider: Dec 23, 2020 Time Seen by a Provider: 07:30 Subjective/Events-last exam Patient was on precedex 1.5mcg/kg/hr overnight. He was agitated and restless and attempted to get out of bed several times per PSYCH ASSISTANT report. Vitals stable per bedside monitor. Precedex has been decreased. He opens eyes to voice and is able to squeeze hands. He is disoriented to place and situation. Review of Systems General: No Chills, No Night Sweats HEENT: No Head Aches, No Visual Changes Pulmonary: No Dyspnea, No Cough Cardiovascular: No: Chest Pain, Palpitations Gastrointestinal: No: Nausea, Vomiting Genitourinary: No Dysuria, No Frequency Musculoskeletal: No: neck pain, back pain Neurological: No: Weakness, Numbness Objective Exam Last Set of Vital Signs Vital Signs Date Time Temp Pulse Resp B/P (MAP) Pulse Ox O2 Delivery O2 Flow Rate FiO2 12/23/20 08:49 88 145/85 12/23/20 08:00 36.5 12/23/20 06:00 16 92 Nasal Cannula 3.00 12/22/20 07:51 30 Capillary Refill : I&O Intake and Output 12/23/20 00:00 Intake Total 4545.2 ml Output Total 2575 ml Balance 1970.2 ml Intake Oral 1280 ml IV Total 3265.2 ml Output Urine Total 2575 ml General: Cooperative, No Acute Distress, Other (lightly sedated. Rass Score of -2. ) HEENT: Atraumatic, PERRLA, EOMI, Mucous Memb Moist/[place] Neck: Supple, No LAD Lungs: Clear to Auscultation, Normal Air Movement Heart: Regular Rate, No Murmurs Abdomen: Normal Bowel Sounds, Soft Extremities: No Clubbing, No Cyanosis, No Edema, Normal Pulses Skin: No Rashes, No Breakdown, No Significant Lesion Neuro: Other (Sedated on precedex. RASS -2. Opens eyes to verbal stimualtion. Able to move all fours. Disoriented and confused. ) Psych/Mental Status: Other (See Neuro) Results Lab Laboratory Tests 12/23/20 05:25: White Blood Count 9.3, Red Blood Count 4.00L, Hemoglobin 13.3, Hematocrit 38L, Mean Corpuscular Volume 96, Mean Corpuscular Hemoglobin 33, Mean Corpuscular Hemoglobin Concent 35, Red Cell Distribution Width 12.3, Platelet Count 109L, Mean Platelet Volume 10.7, Immature Granulocyte % (Auto) 1, Neutrophils (%) (Auto) 77H, Lymphocytes (%) (Auto) 10L, Monocytes (%) (Auto) 11, Eosinophils (%) (Auto) 1, Basophils (%) (Auto) 0, Neutrophils # (Auto) 7.2, Lymphocytes # (Auto) 0.9L, Monocytes # (Auto) 1.0, Eosinophils # (Auto) 0.1, Basophils # (Auto) 0.0, Immature Granulocyte # (Auto) 0.1, Sodium Level 132L, Potassium Level 3.3L, Chloride Level 102, Carbon Dioxide Level 20L, Anion Gap 10, Blood Urea Nitrogen 7, Creatinine 0.57L, Estimat Glomerular Filtration Rate 146, BUN/Creatinine Ratio 12, Glucose Level 93, Calcium Level 8.5, Corrected Calcium 9.2, Phosphorus Level 3.8, Magnesium Level 2.2, Total Bilirubin 0.9, Aspartate Amino Transf (AST/SGOT) 38H, Alanine Aminotransferase (ALT/SGPT) 55, Alkaline Phosphatase 79, Total Protein 5.4L, Albumin 3.1L, Smear Scan YES Assessment/Plan Assessment/Plan Assess & Plan/Chief Complaint Alcohol withdrawal -[facility] protocol -phenobarbital discontinued to excessive drowsiness -prn precedex agitation/restlessness -s/p bannana bag x 3 Hyponatremia -slowly correcting, Na 132 today -NS at 100ml/hr -continue to monitor Hypokalemia -K 3.2 this am, replete -continue to monitor Transaminitis -continue to trend down -continue to monitor Low back pain S/P multiple recent falls -MRI lumbar spine shows multilevel degenerative disease -study limited due to motion artifact Alcohol use disorder -encourage alcohol cessation when detoxed DVT prophylaxis -ANIYA Vargas DO 12/24/20 1145: Assessment/Plan Assessment/Plan Assess & Plan/Chief Complaint Supportive plan Supervisory-Addendum Brief Verification & Attestation Participated in pt care: history, MDM, physical Personally performed: exam, history, MDM, supervision of care Care discussed with: Medical Student Procedures: n/a Results interpretation: Verified all documentation Verification and Attestation of Medical Student E/M Service A medical student performed and documented this service in my presence. I reviewed and verified all information documented by the medical student and made modifications to such information, when appropriate. I personally performed the physical exam and medical decision making. Aniya Mulligan, Dec 24, 2020,11:44 JULISSA GOMEZ MED STUDENT Dec 23, 2020 08:56 ANIYA MULLIGAN DO Dec 24, 2020 11:45
--- NOTE | 2020-12-23 10:08 | Tele-ICU Progress Note ---
Subjective Date Seen by a Provider: Dec 23, 2020 Time Seen by a Provider: 10:08 Sepsis Event Evaluation Height, Weight, BMI Height: '" Weight: lbs. oz. kg; 23.84 BMI Method: Exam Exam Patient acknowledged, consented, and participated in this virtual visit which was conducted using real time audio/video Vital Signs Date Time Temp Pulse Resp B/P (MAP) Pulse Ox O2 Delivery O2 Flow Rate FiO2 12/23/20 08:49 88 145/85 12/23/20 08:00 36.5 12/23/20 08:00 Nasal Cannula 3.00 12/23/20 06:40 75 12/23/20 06:00 78 16 137/91 (106) 92 Nasal Cannula 3.00 12/23/20 05:00 76 16 123/94 (104) 97 Nasal Cannula 3.00 12/23/20 03:03 36.4 Nasal Cannula 3.00 12/23/20 03:01 Nasal Cannula 3.00 12/23/20 01:07 76 118/85 12/23/20 01:00 77 12/23/20 00:00 77 17 118/85 (96) 100 Nasal Cannula 3.00 12/22/20 23:51 Nasal Cannula 3.00 12/22/20 23:27 36.7 Nasal Cannula 3.00 12/22/20 23:00 92 14 141/83 (102) 91 Nasal Cannula 0.50 12/22/20 22:00 96 20 161/106 (124) 100 Nasal Cannula 0.50 12/22/20 21:00 115 20 178/101 (126) 100 Nasal Cannula 0.50 12/22/20 20:00 36.7 12/22/20 20:00 80 23 166/111 (129) 100 Nasal Cannula 0.50 12/22/20 19:41 36.2 Nasal Cannula 0.50 12/22/20 19:40 Nasal Cannula 0.50 12/22/20 19:00 105 18 138/101 (113) 100 Nasal Cannula 0.50 12/22/20 19:00 105 12/22/20 18:00 81 6 135/86 (102) 100 Nasal Cannula 0.50 12/22/20 17:00 92 31 141/110 (120) 85 Nasal Cannula 0.50 12/22/20 16:00 58 11 121/84 (96) 100 Nasal Cannula 0.50 12/22/20 16:00 36.6 12/22/20 15:12 35.9 12/22/20 15:12 100 Nasal Cannula 0.50 12/22/20 15:00 60 10 119/93 (102) 100 Nasal Cannula 0.50 12/22/20 14:00 62 9 117/68 (84) 100 Nasal Cannula 0.50 12/22/20 13:05 63 12/22/20 13:00 64 19 96/73 (81) 91 Nasal Cannula 0.50 12/22/20 12:00 82 17 129/111 (117) 99 Nasal Cannula 0.50 12/22/20 11:31 Nasal Cannula 0.50 12/22/20 11:27 Room Air 12/22/20 11:26 100 Nasal Cannula 2.00 12/22/20 11:25 35.6 12/22/20 11:00 59 11 124/88 (100) 100 Nasal Cannula 2.00 I & O 12/23/20 06:59 Intake Total 4695.2 ml Output Total 2000 ml Balance 2695.2 ml Height & Weight Height: '" Weight: lbs. oz. kg; 23.84 BMI Method: General Appearance: No Apparent Distress, WD/WN HEENT: Other (No scleral icterus extraocular muscles are intact with no difficulty with horizontal gaze or does seem to be a little bit of impairment with vertical gaze however pupils are equal round react to light and accommodation.) Neck: Full Range of Motion, Normal Inspection, Non Tender Respiratory: Lungs Clear, Normal Breath Sounds, No Respiratory Distress Cardiovascular: Regular Rate, Rhythm, No Edema, No Murmur Extremity: Normal Inspection, Non Tender, No Pedal Edema Neurologic/Psychiatric: Alert, Disoriented, Motor Weakness Skin: Normal Color, Warm/Dry Results Lab Laboratory Tests 12/22/20 04:58 12/23/20 05:25 Assessment/Plan Assessment/Plan (Tele-ICU Physician , Progress Note ) Available chart/ vitals / labs / Images reviewed Video assessment done using teleICU camera, rest of exam as per RN Discussed with RN , EXAM PER RN Events overnight : precedex, off ativan , Afebrile I/O = NEG 1500 Drips: PRECEDEX Pressors: , hemodynamically stable Consultants: 12/20 - s/p falls 12/21 - to ICU - with DT, AT NIGHT precedex, off ativan , PLACED ON BVAPOTHERM 40% 30 l 12/22 - STILL CONFUSED , WEANED TO 2 l nc 12/23 - STOPPED PHENOBARB Hospital course: A/P ETOH abuse / withdrawal syndrome / DT - reported hallucinations. No seizures - monitor -Continue supportive care on CIWA protocol- cont benzo, added phenobarb 60 BID 12/21 = stopped 12/23 ,prn precedex -monitor vitals -Thiamine and folate hypoxia - probably due to low TV with seation , CXR , WNL monitor for UYLIA - stop IVF Hyponatremia - TSH WNL , slow appropriate Rise noted - continue to monitor Recent falls and low back pain lower extremity numbness - ongoing w/up by PCP Lines : periph (Central Line Necessity Reviewed) Castillo: OG: Nutrition: po Analgesia: Anxiety/ delirium VTE Prophylaxis: scd , lovenox Stress Ulcer Prophylaxis: na - PO Glycemic Control: Plans in collaboration with bedside consultants and IM MDs. Discussed with RN to reach out if any questions or concerns A total of 31 minutes of critical care time was devoted to this patient today, required to treat and/or prevent further deterioration of critical care condition ( as above ) . ESTELLE PALUMBO MD Dec 23, 2020 10:08
--- NOTE | 2020-12-23 12:02 | Physical Therapy Daily Note ---
PT Daily Note-Current Subjective Patient is in bed. Remains confused but more alert. Mental Status Patient Orientation: Confused Attachments: Castillo Catheter, IV Transfers SCALE: Activities may be completed with or without assistive devices. 8-Hpvtqaueym-mmrdyaj completes the activity by him/herself with no assistance from a helper. 5-Set-up or Clean-up Assistance-helper sets up or cleans up; patient completes activity. [place] assists only prior to or following the activity. 4-Supervision or Touching Assistance-helper provides verbal cues and/or touching/steadying and/or contact guard assistance as patient completes activity. Assistance may be provided throughout the activity or intermittently. 3-Partial/Moderate Assistance-helper does LESS THAN HALF the effort. [place] lifts, holds or supports trunk or limbs, but provides less than half the effort. 2-Substantial/Maximal Assistance-helper does MORE THAN HALF the effort. [place] lifts or holds trunk or limbs and provides more than half the effort. 4-Cetiswxqw-nklnek does ALL the effort. Patient does none of the effort to complete the activity. Or, the assistance of 2 or more helpers is required for the patient to complete the activity. If activity was not attempted, code reason: 7-Patient Refused. 9-Not Applicable-not attempted and the patient did not perform the activity before the current illness, exacerbation or injury. 10-Not Attempted due to Environmental Limitations-(lack of equipment, weather restraints, etc.). 88-Not Attempted due to Medical Conditions or Safety Concerns. Lying to Sitting/Side of Bed(Q: 3 Sit to Stand (QC): 2 Chair/Sha-qv-Ymvdu Xfer(QC): 2 Gait Training Does the Patient Walk?: Yes Distance: 15' Walk 10 feet (QC): 2 Gait Assistive Device: FWW severe flexed knees and trunk with extended UE's with FWW use/noted tremors (unable to follow direction for posture and FWW use) Exercises Seated Therapy Exercises: Ankle pumps, Long arc quads Seated Reps: 12 Standing: Sit to Stand (x 3 sets) Assessment Patient up in recliner with chair alarm activated and telesitter present for patient safety. Patient progressing slowly with gross motor skill. PT Short Term Goals Short Term Goals Time Frame: Jan 05, 2021 PT Plan Treatment/Plan Treatment Plan: Continue Plan of Care Treatment Plan: Bed Mobility, Education, Functional Activity Jem, Functional Strength, Group Therapy, Gait, Safety, Therapeutic Exercise, Transfers Treatment Duration: Mar 02, 2021 Frequency: 6 times per week Estimated Hrs Per Day: .25 hour per day Time/GCodes Time In: 1130 Time Out: 1153 Total Billed Treatment Time: 23 Total Billed Treatment 1 visit FA x 2 23 min ALIZE GALDAMEZ PT Dec 23, 2020 12:02
[2020-12-23] MEDS: LORazepam INJ 2 MG/ML (ATIVAN) VIAL IV PRN ×2 (12:35→16:55)
--- NOTE | 2020-12-23 15:29 | Physician Query Clarification ---
Physician Query-General Query to Physician: The medical record reflects the following clinical evidence: Clinical Indicators: RR ranging from 9 to 45 depend on sedation, O2 sat 85 on 0.5L and 87% on 3L 02 (P/F 53/.362=514), "Severe Hypoxia while sleeping" per physician Risk Factor(s): ETOH abuse/Withdrawal, Sedation for withdrawal, Weakness, Mal[place] rition Treatment: Supplemental 02 up to 40%, VS q 1 hour, ICU, frequent assessments 1. Acute respiratory failure with hypoxia 2. Other explanation of clinical findings 3. Unable to determine (no explanation for clinical findings) Please clarify and document your clinical opinion in the progress notes and discharge summary including the definitive and/or presumptive diagnosis, (valente spected or probable), related to the above clinical findings. Please include clinical findings supporting your diagnosis. Vanesa Gutierrez MSN, RN Clinical Esl Instructional Assistant [phone] [email or web address] PHYSICIAN RESPONSE: Based on the clinical findings in the record, please respond to the query above on this document as an addendum. Physician Response: Physician Response 1 If you have questions please contact: Rehabilitation Services Coordinator: Ext: Thank you for your time and cooperation. Clinical Esl Instructional Assistant/Rehabilitation Services Coordinator This is a permanent part of the medical record VANESA GUTIERREZ Dec 23, 2020 15:29 EMMA ROJAS DO Dec 23, 2020 20:13
[2020-12-23] MEDS: ENOXAPARIN 40 MG/0.4 ML (LOVENOX) SYR SC SCH (16:55)
--- NOTE | 2020-12-23 19:06 | Progress Note - Hospitalist ---
Subjective HPI/CC On Admission Date Seen by Provider: Dec 23, 2020 Time Seen by Provider: 09:15 Mr. Salinas is a 50-year-old white male presented to the office at his 's insistence who accompanied him due to a recent history of falls. He reports his first fall on November 14 at which time he injured his low back. Following that ti me he has noted numbness in his legs and has had for 5 subsequent falls none from height. He denied headache but reported generalized weakness. He admitted to longstanding heavy alcohol consumption for which he reports he drinks Granda light 3-4 sixpacks per day. It has been 7 years since his last office visit and he only came in because of his 's insistence. Ports his appetite has been poor and he thinks he is probably lost 20 to 30 pounds by our office scales compared to 7 years ago he is down 40 pounds. He reports some nausea denies abdominal pain denies orange urine and he does not recall the last period of time he left without heavy alcohol consumption. [place] and has done so for many years is with no children denies DUIs and has had no previous hospital admission and was taking no medication gvxd-fzv-zfbiwpa also denying illicit drug use. He reports onset of a tremor for at least the past several months worse with action less so at rest and noting that when he drinks his tremor goes away he denies knowledge of any family history for tremor essential or Parkinson's disease. He denies night sweats chills fever orthopnea PND or pedal edema and denies abdominal distention is noted no melena or bright red blood per rectum. Subjective/Events-last exam He is sleeping upon my arrival. He remains confused. He denies pain. Objective Exam Vital Signs Vital Signs Date Time Temp Pulse Resp B/P (MAP) Pulse Ox O2 Delivery O2 Flow Rate FiO2 12/23/20 18:00 96 11 129/52 (77) 94 Nasal Cannula 3.00 12/23/20 12:39 36.6 12/22/20 07:51 30 Capillary Refill : General Appearance: No Apparent Distress, Chronically ill Respiratory: Lungs Clear, Normal Breath Sounds, No Respiratory Distress Cardiovascular: Regular Rate, Rhythm, No Edema, No Murmur Gastrointestinal: Normal Bowel Sounds, Non Tender, Soft Extremity: Normal Inspection, Non Tender, No Pedal Edema Neurologic/Psychiatric: Alert, Disoriented, Motor Weakness Skin: Warm/Dry, Other (bruises) Results/Procedures Lab Laboratory Tests 12/23/20 05:25 Patient resulted labs reviewed. Imaging: Reviewed Imaging Report Assessment/Plan Assessment and Plan Assess & Plan/Chief Complaint Alcohol withdrawal Alcohol dependence Alcoholic hepatitis Alcohol myopathy Hyponatremia Hypokalemia Obstructive sleep apnea CIWA protocol Ativan as needed Precedex Phenobarbital Requiring high flow oxygen due to sleep apnea LFTs improving Sodium improving Continue normal saline Consult TeleICU PT/OT SW consulted MRI concerning for possible normal pressure hydrocephalus Consider further evaluation once through acute withdrawal DVT prophylaxis: Lovenox Critical Care Critically Ill Patient Diagnosis/Problems Diagnosis/Problems (1) Alcohol withdrawal Status: Acute Qualifiers: Complication of substance-induced condition: with delirium Qualified Codes: F10.231 - Alcohol dependence with withdrawal delirium (2) Alcohol dependence Status: Acute Qualifiers: Substance use status: in withdrawal Complication of substance-induced condition: with delirium Qualified Codes: F10.231 - Alcohol dependence with withdrawal delirium (3) Alcoholic hepatitis without ascites Status: Acute (4) Alcohol myopathy Status: Acute (5) Recurrent falls Status: Acute ANIL WYATT MD Dec 23, 2020 19:06
[2020-12-23] MEDS: LORazepam INJ 2 MG/ML (ATIVAN) VIAL IM/IV PRN (23:43)
[2020-12-24] VITALS (21 sets, daily range): BP systolic 119–184; BP diastolic 70–114
[2020-12-24] MEDS: NS IV 1000 ML 1,000 ML IV SCH ×2 (03:46→14:30)
[2020-12-24] MEDS: LORazepam INJ 2 MG/ML (ATIVAN) VIAL IM/IV PRN ×2 (03:51→06:32)
[2020-12-24 05:56] LABS: BASOPHILS # (AUTO) 0.1 10^3/uL (0.0-0.1); BASOPHILS % (AUTO) 1 % (0-10); EOSINOPHILS # (AUTO) 0.1 10^3/uL (0.0-0.3); EOSINOPHILS % (AUTO) 1 % (0-10); HEMATOCRIT 41 % (40-54); HEMOGLOBIN 13.7 g/dL (13.3-17.7); LYMPHOCYTES # (AUTO) 0.9 10^3/uL (1.0-4.0); LYMPHOCYTES % (AUTO) 8 % (12-44); MEAN CORPUSCULAR HEMOGLOBIN 34 pg (25-34); MEAN CORPUSCULAR HGB CONC 34 g/dL (32-36); MEAN CORPUSCULAR VOLUME 102 fL (80-99); MEAN PLATELET VOLUME 10.9 fL (9.0-12.2); MONOCYTES # (AUTO) 1.6 10^3/uL (0.0-1.0); MONOCYTES % (AUTO) 16 % (0-12); NEUTROPHILS # (AUTO) 7.5 10^3/uL (1.8-7.8); NEUTROPHILS % (AUTO) 74 % (42-75); PLATELET COUNT 95 10^3/uL (130-400); WHITE BLOOD COUNT 10.1 10^3/uL (4.3-11.0)
[2020-12-24 06:12] LABS: ALBUMIN 2.9 GM/DL (3.2-4.5); POTASSIUM 4.1 MMOL/L (3.6-5.0)
[2020-12-24 06:13] LABS: CALCIUM 8.5 MG/DL (8.5-10.1)
[2020-12-24 06:15] LABS: TOTAL PROTEIN 5.5 GM/DL (6.4-8.2)
[2020-12-24 06:16] LABS: BILIRUBIN,TOTAL 0.8 MG/DL (0.1-1.0)
[2020-12-24 06:18] LABS: CREATININE SERUM 0.56 MG/DL (0.60-1.30); PHOSPHORUS 2.9 MG/DL (2.3-4.7)
[2020-12-24 06:21] LABS: MAGNESIUM 2.1 MG/DL (1.6-2.4)
[2020-12-24] MEDS: MAGNESIUM 1 GM/100 ML IVPB 100 ML IV SCH (06:32)
[2020-12-24] MEDS: POTASSIUM CL 10MEQ/50ML IVPB 50 ML IV SCH (06:32)
[2020-12-24] MEDS: KCL 20 MEQ TAB (K-DUR) PO SCH (06:32)
[2020-12-24] MEDS: LORazepam INJ 2 MG/ML (ATIVAN) VIAL IV PRN ×4 (08:13→14:45)
--- NOTE | 2020-12-24 11:31 | Physical Therapy Daily Note ---
PT Daily Note-Current Subjective Patient in bed pre tx, agrees to PT, states he always has pain but cannot elaborate. Appearance Patient in recliner post tx with nurse call, tray, chair alarm on, telesitter in room. Mental Status Patient Orientation: Person, Confused Attachments: Castillo Catheter, IV Transfers SCALE: Activities may be completed with or without assistive devices. 0-Jvymxpgoiu-pknkxqy completes the activity by him/herself with no assistance from a helper. 5-Set-up or Clean-up Assistance-helper sets up or cleans up; patient completes activity. [place] assists only prior to or following the activity. 4-Supervision or Touching Assistance-helper provides verbal cues and/or touching/steadying and/or contact guard assistance as patient completes activity. Assistance may be provided throughout the activity or intermittently. 3-Partial/Moderate Assistance-helper does LESS THAN HALF the effort. [place] lifts, holds or supports trunk or limbs, but provides less than half the effort. 2-Substantial/Maximal Assistance-helper does MORE THAN HALF the effort. [place] lifts or holds trunk or limbs and provides more than half the effort. 7-Rzcbqeszt-rjxcpr does ALL the effort. Patient does none of the effort to complete the activity. Or, the assistance of 2 or more helpers is required for the patient to complete the activity. If activity was not attempted, code reason: 7-Patient Refused. 9-Not Applicable-not attempted and the patient did not perform the activity before the current illness, exacerbation or injury. 10-Not Attempted due to Environmental Limitations-(lack of equipment, weather restraints, etc.). 88-Not Attempted due to Medical Conditions or Safety Concerns. Roll Left & Right (QC): 3 Lying to Sitting/Side of Bed(Q: 3 Sit to Stand (QC): 3 Chair/Fsc-wh-Bnvqo Xfer(QC): 3 mod assist with supine to sit and sit to stand. Patient is very shaky, doesn't attempt to stand straight even with cues and directions to do so, very slumped posture. Gait Training Distance: 10' Walk 10 feet (QC): 3 Gait Assistive Device: FWW Patient ambulates forward and then to recliner. He needs assist guiding the walker. Patient has a lot of difficulty moving his left foot from the ground, and leans to the left side. Exercises Seated Therapy Exercises: Ankle pumps, Long arc quads Seated Reps: 20 Treatments bed mobility and transfers, ambulation, LE ROM Assessment Current Status: Poor Progress Patient leans to the left and has difficulty stepping with his left leg. Has some stroke-like symptoms. PT Short Term Goals Short Term Goals Time Frame: Jan 05, 2021 PT Plan Problem List Problem List: Activity Tolerance, Functional Strength, Safety, Balance, Gait, Transfer, Bed Mobility, ROM Treatment/Plan Treatment Plan: Continue Plan of Care Treatment Plan: Bed Mobility, Education, Functional Activity Jem, Functional Strength, Group Therapy, Gait, Safety, Therapeutic Exercise, Transfers Treatment Duration: Mar 02, 2021 Frequency: 6 times per week Estimated Hrs Per Day: .25 hour per day Safety Risks/Education Patient Education: Gait Training, Transfer Techniques, Correct Positioning, Safety Issues Teaching Recipient: Patient Teaching Methods: Demonstration, Discussion Response to Teaching: Reinforcement Needed Time/GCodes Time In: 1100 Time Out: 1119 Total Billed Treatment Time: 19 Total Billed Treatment 1 visit FA 19' FÁTIMA AVILA PT Dec 24, 2020 11:31
--- NOTE | 2020-12-24 11:33 | Progress Note ---
JULISSA GOMEZ MED STUDENT 12/24/20 1133: Subjective Date Seen by a Provider: Dec 24, 2020 Time Seen by a Provider: 08:00 Subjective/Events-last exam Awake with eyes open in room. Patient thinks he's elsewhere, disoriented to place, situation, and time. Able to follow simple commands and tracks. Remains on precedex gtt. Review of Systems General: No Night Sweats HEENT: No Head Aches, No Visual Changes Pulmonary: No Dyspnea, No Cough Cardiovascular: No: Chest Pain, Palpitations Gastrointestinal: No: Nausea, Vomiting Genitourinary: No Dysuria, No Frequency; Other ([place]) Musculoskeletal: No: neck pain, back pain Neurological: No: Weakness, Numbness Objective Exam Last Set of Vital Signs Vital Signs Date Time Temp Pulse Resp B/P (MAP) Pulse Ox O2 Delivery O2 Flow Rate FiO2 12/24/20 11:00 64 10 122/80 (94) 96 Nasal Cannula 3.00 12/24/20 08:00 36.1 12/22/20 07:51 30 Capillary Refill : I&O Intake and Output 12/24/20 00:00 Intake Total 2360 ml Output Total 1750 ml Balance 610 ml Intake Oral 1360 ml IV Total 1000 ml Output Urine Total 1750 ml # Bowel Movements 5 General: Alert, No Acute Distress, Other (Confused and disoriented. ) HEENT: Atraumatic, PERRLA, EOMI, Mucous Memb Moist/[place] Neck: Supple, No LAD Lungs: Clear to Auscultation, Normal Air Movement Heart: Regular Rate, No Murmurs Abdomen: Normal Bowel Sounds, Soft, No Tenderness Extremities: No Clubbing, No Cyanosis, No Edema, Normal Pulses Skin: No Rashes, No Significant Lesion Neuro: Normal Speech, Sensation Intact Psych/Mental Status: Other (Disoriented and confused. Requires frequent redirection and reorienting. ) Results Lab Laboratory Tests 12/24/20 05:40: White Blood Count 10.1, Red Blood Count 4.03L, Hemoglobin 13.7, Hematocrit 41, Mean Corpuscular Volume 102H, Mean Corpuscular Hemoglobin 34, Mean Corpuscular Hemoglobin Concent 34, Red Cell Distribution Width 12.6, Platelet Count 95L, Mean Platelet Volume 10.9, Immature Granulocyte % (Auto) 1, Neutrophils (%) (Auto) 74, Lymphocytes (%) (Auto) 8L, Monocytes (%) (Auto) 16H, Eosinophils (%) (Auto) 1, Basophils (%) (Auto) 1, Neutrophils # (Auto) 7.5, Lymphocytes # (Auto) 0.9L, Monocytes # (Auto) 1.6H, Eosinophils # (Auto) 0.1, Basophils # (Auto) 0.1, Immature Granulocyte # (Auto) 0.1, Sodium Level 132L, Potassium Level 4.1, Chloride Level 105, Carbon Dioxide Level 18L, Anion Gap 9, Blood Urea Nitrogen 8, Creatinine 0.56L, Estimat Glomerular Filtration Rate 149, BUN/Creatinine Ratio 14, Glucose Level 69L, Calcium Level 8.5, Corrected Calcium 9.4, Phosphorus Level 2.9, Magnesium Level 2.1, Total Bilirubin 0.8, Aspartate Amino Transf (AST/SGOT) 30, Alanine Aminotransferase (ALT/SGPT) 43, Alkaline Phosphatase 73, Total Protein 5.5L, Albumin 2.9L Assessment/Plan Assessment/Plan Assess & Plan/Chief Complaint Alcohol withdrawal -CIWA protocol -phenobarbital discontinued to excessive drowsiness -prn precedex agitation/restlessness -s/p bannana bag x 3 -add daily thiamine, mltv, and folate Hyponatremia -slowly correcting, Na 132 -NS at 100ml/hr -continue to monitor Thrombocytopenia -platelets trending down to 95 today -consider HIT antibody assay is on lovenox Transaminitis -resolved -continue to monitor Low back pain S/P multiple recent falls -MRI lumbar spine shows multilevel degenerative disease -study limited due to motion artifact Alcohol use disorder -encourage alcohol cessation when detoxed DVT prophylaxis -lovenox ILEANA VELÁZQUEZ MD 12/24/20 1349: Subjective Subjective/Events-last exam Not ready for discharge from MICU, continue IV precedex and PRN ativan Supervisory-Addendum Brief Verification & Attestation Participated in pt care: history Personally performed: exam, history Care discussed with: Medical Student Procedures: n/a Results interpretation: Verified all documentation continue on IV Precedex and PRN IV ativan, still disorientated ANIYA ROJAS DO 12/25/20 0629: Supervisory-Addendum Brief Verification & Attestation Participated in pt care: history, MDM, physical Personally performed: exam, history, MDM, supervision of care Care discussed with: Medical Student Procedures: n/a Results interpretation: Verified all documentation Verification and Attestation of Medical Student E/M Service A medical student performed and documented this service in my presence. I reviewed and verified all information documented by the medical student and made modifications to such information, when appropriate. I personally performed the physical exam and medical decision making. Aniya Rojas, Dec 25, 2020,06:29 JULISSA GOMZE MED STUDENT Dec 24, 2020 11:33 ILEANA VELÁZQUEZ MD Dec 24, 2020 13:49 ANIYA ROJAS DO Dec 25, 2020 06:29
--- NOTE | 2020-12-24 12:41 | Progress Note - Hospitalist ---
Subjective HPI/CC On Admission Date Seen by Provider: Dec 24, 2020 Time Seen by Provider: 08:35 Mr. Salinas is a 50-year-old white male presented to the office at his 's insistence who accompanied him due to a recent history of falls. He reports his first fall on November 14 at which time he injured his low back. Following that ti me he has noted numbness in his legs and has had for 5 subsequent falls none from height. He denied headache but reported generalized weakness. He admitted to longstanding heavy alcohol consumption for which he reports he drinks Granda light 3-4 sixpacks per day. It has been 7 years since his last office visit and he only came in because of his 's insistence. Ports his appetite has been poor and he thinks he is probably lost 20 to 30 pounds by our office scales compared to 7 years ago he is down 40 pounds. He reports some nausea denies abdominal pain denies orange urine and he does not recall the last period of time he left without heavy alcohol consumption. [place] the [place] and has done so for many years is with no children denies DUIs and has had no previous hospital admission and was taking no medication [id number] also denying illicit drug use. He reports onset of a tremor for at least the past several months worse with action less so at rest and noting that when he drinks his tremor goes away he denies knowledge of any family history for tremor essential or Parkinson's disease. He denies night sweats chills fever orthopnea PND or pedal edema and denies abdominal distention is noted no melena or bright red blood per rectum. Subjective/Events-last exam He remains confused. He denies any pain. He is not short of breath. He has no complaints or concerns. Objective Exam Vital Signs Vital Signs Date Time Temp Pulse Resp B/P (MAP) Pulse Ox O2 Delivery O2 Flow Rate FiO2 12/24/20 12:00 116 21 125/86 (99) 100 Nasal Cannula 3.00 12/24/20 12:00 36.6 12/22/20 07:51 30 Capillary Refill : General Appearance: No Apparent Distress, WD/WN Respiratory: Lungs Clear, Normal Breath Sounds, No Respiratory Distress Cardiovascular: Regular Rate, Rhythm, No Edema, No Murmur Gastrointestinal: Normal Bowel Sounds, Non Tender, Soft Extremity: Normal Inspection, Non Tender, No Pedal Edema Neurologic/Psychiatric: Alert, Disoriented, Motor Weakness Skin: Normal Color, Warm/Dry Results/Procedures Lab Laboratory Tests 12/24/20 05:40 Patient resulted labs reviewed. Imaging: Reviewed Imaging Report Assessment/Plan Assessment and Plan Assess & Plan/Chief Complaint Alcohol withdrawal Alcohol dependence Alcohol myopathy Hyponatremia Obstructive sleep apnea CIWA protocol Ativan as needed Precedex, weaning as able Phenobarbital Continue normal saline Consult TeleICU PT/OT SW consulted MRI concerning for possible normal pressure hydrocephalus Consider further evaluation once through acute withdrawal DVT prophylaxis: Lovenox Alcoholic hepatitis, resolved Hypokalemia, resolved Critical Care Critically Ill Patient Diagnosis/Problems Diagnosis/Problems (1) Alcohol withdrawal Status: Acute Qualifiers: Complication of substance-induced condition: with delirium Qualified Codes: F10.231 - Alcohol dependence with withdrawal delirium (2) Alcohol dependence Status: Acute Qualifiers: Substance use status: in withdrawal Complication of substance-induced condition: with delirium Qualified Codes: F10.231 - Alcohol dependence with withdrawal delirium (3) Alcoholic hepatitis without ascites Status: Resolved Resolution Date/Time: 12/24/20 @ 12:41 (4) Alcohol myopathy Status: Acute (5) Recurrent falls Status: Acute ANIL WYATT MD Dec 24, 2020 12:41
--- NOTE | 2020-12-24 14:54 | Progress Note ---
Standard Progress Note Progress Notes/Assess & Plan Date Seen by a Provider: Dec 24, 2020 Time Seen by a Provider: 14:53 Progress/Assessment & Plan called for renewed agitation, given total of 8 mg IV Ativan and is on IV precedex @ 1.0, will give 30 mg IV phenobarbital and repeat x 1 if needed MD EBER Hoffman JOSEPH K MD Dec 24, 2020 14:54
[2020-12-24] MEDS: ENOXAPARIN 40 MG/0.4 ML (LOVENOX) SYR SC SCH (19:25)
[2020-12-24] MEDS: DexMEDEtomidine 250 ML DRIP 250 ML IV SCH (19:43)
[2020-12-25] VITALS (22 sets, daily range): BP systolic 117–187; BP diastolic 69–113
[2020-12-25] MEDS: NS IV 1000 ML 1,000 ML IV SCH ×3 (00:53→20:50)
[2020-12-25 04:47] LABS: BASOPHILS # (AUTO) 0.1 10^3/uL (0.0-0.1); BASOPHILS % (AUTO) 1 % (0-10); EOSINOPHILS # (AUTO) 0.1 10^3/uL (0.0-0.3); EOSINOPHILS % (AUTO) 1 % (0-10); HEMATOCRIT 35 % (40-54); HEMOGLOBIN 11.9 g/dL (13.3-17.7); LYMPHOCYTES # (AUTO) 1.1 10^3/uL (1.0-4.0); LYMPHOCYTES % (AUTO) 16 % (12-44); MEAN CORPUSCULAR HEMOGLOBIN 33 pg (25-34); MEAN CORPUSCULAR HGB CONC 34 g/dL (32-36); MEAN CORPUSCULAR VOLUME 99 fL (80-99); MEAN PLATELET VOLUME 10.5 fL (9.0-12.2); MONOCYTES # (AUTO) 1.2 10^3/uL (0.0-1.0); MONOCYTES % (AUTO) 18 % (0-12); NEUTROPHILS # (AUTO) 4.3 10^3/uL (1.8-7.8); NEUTROPHILS % (AUTO) 64 % (42-75); PLATELET COUNT 119 10^3/uL (130-400); WHITE BLOOD COUNT 6.7 10^3/uL (4.3-11.0)
[2020-12-25 04:59] LABS: ALBUMIN 2.9 GM/DL (3.2-4.5); POTASSIUM 3.4 MMOL/L (3.6-5.0)
[2020-12-25 05:00] LABS: CALCIUM 8.5 MG/DL (8.5-10.1)
[2020-12-25 05:01] LABS: TOTAL PROTEIN 5.4 GM/DL (6.4-8.2)
[2020-12-25 05:03] LABS: BILIRUBIN,TOTAL 0.7 MG/DL (0.1-1.0)
[2020-12-25 05:05] LABS: CREATININE SERUM 0.6 MG/DL (0.60-1.30)
[2020-12-25 05:08] LABS: MAGNESIUM 2.1 MG/DL (1.6-2.4)
[2020-12-25] MEDS: KCL 20 MEQ TAB (K-DUR) PO SCH (05:46)
[2020-12-25] MEDS: MAGNESIUM 1 GM/100 ML IVPB 100 ML IV SCH (05:46)
[2020-12-25] MEDS: POTASSIUM CL 10MEQ/50ML IVPB 50 ML IV SCH ×3 (06:39→09:07)
[2020-12-25] MEDS: LORazepam INJ 2 MG/ML (ATIVAN) VIAL IV PRN ×6 (07:45→18:45)
--- NOTE | 2020-12-25 11:22 | Physical Therapy Progress Note ---
Therapy Progress Note Pt on hold per nursing request. PT will check back on next available therapy date. DEEPA GALVAN GINSENG FARMER Dec 25, 2020 11:22
--- NOTE | 2020-12-25 13:34 | Progress Note - Hospitalist ---
Subjective HPI/CC On Admission Date Seen by Provider: Dec 25, 2020 Time Seen by Provider: 09:20 Mr. Salinas is a 50-year-old white male presented to the office at his 's insistence who accompanied him due to a recent history of falls. He reports his first fall on November 14 at which time he injured his low back. Following that ti me he has noted numbness in his legs and has had for 5 subsequent falls none from height. He denied headache but reported generalized weakness. He admitted to longstanding heavy alcohol consumption for which he reports he drinks Granda light 3-4 sixpacks per day. It has been 7 years since his last office visit and he only came in because of his 's insistence. Ports his appetite has been poor and he thinks he is probably lost 20 to 30 pounds by our office scales compared to 7 years ago he is down 40 pounds. He reports some nausea denies abdominal pain denies orange urine and he does not recall the last period of time he left without heavy alcohol consumption. [place] and has done so for many years is with no children denies DUIs and has had no previous hospital admission and was taking no medication [id number] also denying illicit drug use. He reports onset of a tremor for at least the past several months worse with action less so at rest and noting that when he drinks his tremor goes away he denies knowledge of any family history for tremor essential or Parkinson's disease. He denies night sweats chills fever orthopnea PND or pedal edema and denies abdominal distention is noted no melena or bright red blood per rectum. Subjective/Events-last exam He continues to be confused. He is oriented only to self. He is having visual hallucinations. He denies any pain. He denies any trouble breathing. Objective Exam Vital Signs Vital Signs Date Time Temp Pulse Resp B/P (MAP) Pulse Ox O2 Delivery O2 Flow Rate FiO2 12/25/20 12:00 70 8 165/91 (115) 92 Nasal Cannula 3.00 12/25/20 08:30 36.1 12/22/20 07:51 30 Capillary Refill : General Appearance: No Apparent Distress, Chronically ill Respiratory: Lungs Clear, Normal Breath Sounds, No Respiratory Distress Cardiovascular: Regular Rate, Rhythm, No Edema, No Murmur Gastrointestinal: Normal Bowel Sounds, Non Tender, Soft Extremity: Normal Inspection, Non Tender, No Pedal Edema Neurologic/Psychiatric: Alert, Disoriented, Motor Weakness Skin: Normal Color, Warm/Dry Results/Procedures Lab Laboratory Tests 12/25/20 04:30 Patient resulted labs reviewed. Imaging: Reviewed Imaging Report Assessment/Plan Assessment and Plan Assess & Plan/Chief Complaint Alcohol withdrawal with perceptual disturbance Alcohol dependence Alcohol myopathy Hyponatremia Hypokalemia Obstructive sleep apnea CIWA protocol Ativan as needed s/p Precedex s/p phenobarbital Continue fluids TeleICU following PT/OT SW consulted MRI concerning for possible normal pressure hydrocephalus Consider further evaluation once through acute withdrawal DVT prophylaxis: Lovenox Alcoholic hepatitis, resolved Hypokalemia, resolved Diagnosis/Problems Diagnosis/Problems (1) Alcohol withdrawal Status: Acute Qualifiers: Complication of substance-induced condition: with perceptual disturbance Qualified Codes: F10.232 - Alcohol dependence with withdrawal with perceptual disturbance (2) Alcohol dependence Status: Acute Qualifiers: Substance use status: in withdrawal Complication of substance-induced condition: with perceptual disturbance Qualified Codes: F10.232 - Alcohol dependence with withdrawal with perceptual disturbance (3) Alcoholic hepatitis without ascites Status: Resolved Resolution Date/Time: 12/24/20 @ 12:41 (4) Alcohol myopathy Status: Acute (5) Recurrent falls Status: Acute ANIL WYATT MD Dec 25, 2020 13:34
[2020-12-25] MEDS: ENOXAPARIN 40 MG/0.4 ML (LOVENOX) SYR SC SCH (16:00)
[2020-12-25] MEDS: LORazepam 1 MG (ATIVAN) TAB PO PRN (23:34)
[2020-12-26] VITALS (23 sets, daily range): BP systolic 136–187; BP diastolic 64–112
[2020-12-26] MEDS: NS IV 1000 ML 1,000 ML IV SCH (06:16)
[2020-12-26 06:20] LABS: BASOPHILS # (AUTO) 0.1 10^3/uL (0.0-0.1); BASOPHILS % (AUTO) 2 % (0-10); EOSINOPHILS # (AUTO) 0.1 10^3/uL (0.0-0.3); EOSINOPHILS % (AUTO) 2 % (0-10); HEMATOCRIT 35 % (40-54); LYMPHOCYTES # (AUTO) 1.1 10^3/uL (1.0-4.0); LYMPHOCYTES % (AUTO) 20 % (12-44); MEAN CORPUSCULAR HEMOGLOBIN 34 pg (25-34); MEAN CORPUSCULAR HGB CONC 34 g/dL (32-36); MEAN CORPUSCULAR VOLUME 98 fL (80-99); MEAN PLATELET VOLUME 10.7 fL (9.0-12.2); MONOCYTES # (AUTO) 1.1 10^3/uL (0.0-1.0); MONOCYTES % (AUTO) 20 % (0-12); NEUTROPHILS # (AUTO) 3.1 10^3/uL (1.8-7.8); NEUTROPHILS % (AUTO) 56 % (42-75); PLATELET COUNT 151 10^3/uL (130-400); WHITE BLOOD COUNT 5.5 10^3/uL (4.3-11.0)
[2020-12-26 06:32] LABS: ALBUMIN 2.9 GM/DL (3.2-4.5); POTASSIUM 2.9 MMOL/L (3.6-5.0)
[2020-12-26 06:33] LABS: CALCIUM 8.6 MG/DL (8.5-10.1)
[2020-12-26 06:35] LABS: TOTAL PROTEIN 5.4 GM/DL (6.4-8.2)
[2020-12-26 06:37] LABS: BILIRUBIN,TOTAL 0.6 MG/DL (0.1-1.0)
[2020-12-26 06:38] LABS: CREATININE SERUM 0.54 MG/DL (0.60-1.30); PHOSPHORUS 3.6 MG/DL (2.3-4.7)
[2020-12-26] MEDS: POTASSIUM CL 10MEQ/50ML IVPB 50 ML IV SCH ×5 (06:45→11:45)
[2020-12-26] MEDS: MAGNESIUM 1 GM/100 ML IVPB 100 ML IV SCH (06:45)
[2020-12-26] MEDS: KCL 20 MEQ TAB (K-DUR) PO SCH (06:45)
[2020-12-26] MEDS: LORazepam 1 MG (ATIVAN) TAB PO PRN ×3 (09:17→13:50)
--- NOTE | 2020-12-26 10:31 | Tele-ICU Progress Note ---
Progress Note video rounds completed 60 y/o with alcohol withdrawl No seiures or hallucinations VSS On CIWA protocol Received thiamine No new issues Focused Exam Height, Weight, BMI Height: '" Weight: lbs. oz. kg; 23.84 BMI Method: ILEANA JEAN-BAPTISTE MD Dec 26, 2020 10:31
[2020-12-26] MEDS ORDERED: POTASSIUM CL 10MEQ/50ML IVPB 50 ML IV ONE (11:00)
--- NOTE | 2020-12-26 12:49 | Progress Note - Hospitalist ---
Subjective HPI/CC On Admission Date Seen by Provider: Dec 26, 2020 Time Seen by Provider: 09:00 Mr. Salinas is a 50-year-old white male presented to the office at his 's insistence who accompanied him due to a recent history of falls. He reports his first fall on November 14 at which time he injured his low back. Following that ti me he has noted numbness in his legs and has had for 5 subsequent falls none from height. He denied headache but reported generalized weakness. He admitted to longstanding heavy alcohol consumption for which he reports he drinks Granda light 3-4 sixpacks per day. It has been 7 years since his last office visit and he only came in because of his 's insistence. Ports his appetite has been poor and he thinks he is probably lost 20 to 30 pounds by our office scales compared to 7 years ago he is down 40 pounds. He reports some nausea denies abdominal pain denies orange urine and he does not recall the last period of time he left without heavy alcohol consumption. [place] currently [place] the [place] and has done so for many years is with no children denies DUIs and has had no previous hospital admission and was taking no medication [id number] also denying illicit drug use. He reports onset of a tremor for at least the past several months worse with action less so at rest and noting that when he drinks his tremor goes away he denies knowledge of any family history for tremor essential or Parkinson's disease. He denies night sweats chills fever orthopnea PND or pedal edema and denies abdominal distention is noted no melena or bright red blood per rectum. Subjective/Events-last exam He was trying to climb out of bed upon my arrival and his bed alarm was going off. I helped him back into bed. He says he needs to call his . He has continued to be confused. He is still having hallucinations. He thought he was golfing last night. Objective Exam Vital Signs Vital Signs Date Time Temp Pulse Resp B/P (MAP) Pulse Ox O2 Delivery O2 Flow Rate FiO2 12/26/20 12:00 66 24 158/92 (114) 92 Nasal Cannula 3.00 12/26/20 08:22 35.8 12/22/20 07:51 30 Capillary Refill : General Appearance: Chronically ill, Mild Distress (Agitated, confused) Respiratory: Lungs Clear, Normal Breath Sounds, No Respiratory Distress Cardiovascular: Regular Rate, Rhythm, No Edema, No Murmur Gastrointestinal: Normal Bowel Sounds, Non Tender, Soft Extremity: Normal Inspection, Non Tender, No Pedal Edema Neurologic/Psychiatric: Alert, Disoriented, Motor Weakness Skin: Normal Color, Warm/Dry Results/Procedures Lab Laboratory Tests 12/26/20 06:15 Patient resulted labs reviewed. Imaging: Reviewed Imaging Report Assessment/Plan Assessment and Plan Assess & Plan/Chief Complaint Alcohol withdrawal with perceptual disturbance Alcohol dependence Alcohol myopathy Hypokalemia Obstructive sleep apnea CIWA protocol Continue Ativan as needed Restarted on Precedex s/p phenobarbital Stop fluids Remove hurst TeleICU following PT/OT SW consulted MRI concerning for possible normal pressure hydrocephalus Consider further evaluation once through acute withdrawal DVT prophylaxis: Lovenox Alcoholic hepatitis, resolved Hyponatremia, resolved Diagnosis/Problems Diagnosis/Problems (1) Alcohol withdrawal Status: Acute Qualifiers: Complication of substance-induced condition: with perceptual disturbance Qualified Codes: F10.232 - Alcohol dependence with withdrawal with perceptual disturbance (2) Alcohol dependence Status: Acute Qualifiers: Substance use status: in withdrawal Complication of substance-induced condition: with perceptual disturbance Qualified Codes: F10.232 - Alcohol dependence with withdrawal with perceptual disturbance (3) Alcoholic hepatitis without ascites Status: Resolved Resolution Date/Time: 12/24/20 @ 12:41 (4) Alcohol myopathy Status: Acute (5) Recurrent falls Status: Acute ANIL WYATT MD Dec 26, 2020 12:49
[2020-12-26] MEDS: LORazepam INJ 2 MG/ML (ATIVAN) VIAL IV PRN ×3 (14:27→17:04)
[2020-12-26] MEDS: ENOXAPARIN 40 MG/0.4 ML (LOVENOX) SYR SC SCH (15:12)
[2020-12-26] MEDS: DexMEDEtomidine 250 ML DRIP 250 ML IV SCH (15:13)
[2020-12-27] VITALS (23 sets, daily range): BP systolic 130–189; BP diastolic 85–113
[2020-12-27 05:37] LABS: BASOPHILS # (AUTO) 0.1 10^3/uL (0.0-0.1); BASOPHILS % (AUTO) 1 % (0-10); EOSINOPHILS # (AUTO) 0.1 10^3/uL (0.0-0.3); EOSINOPHILS % (AUTO) 2 % (0-10); HEMATOCRIT 36 % (40-54); HEMOGLOBIN 12.5 g/dL (13.3-17.7); LYMPHOCYTES # (AUTO) 1.2 10^3/uL (1.0-4.0); LYMPHOCYTES % (AUTO) 20 % (12-44); MEAN CORPUSCULAR HEMOGLOBIN 33 pg (25-34); MEAN CORPUSCULAR HGB CONC 34 g/dL (32-36); MEAN CORPUSCULAR VOLUME 96 fL (80-99); MEAN PLATELET VOLUME 10.7 fL (9.0-12.2); MONOCYTES # (AUTO) 1.2 10^3/uL (0.0-1.0); MONOCYTES % (AUTO) 20 % (0-12); NEUTROPHILS # (AUTO) 3.5 10^3/uL (1.8-7.8); NEUTROPHILS % (AUTO) 57 % (42-75); PLATELET COUNT 184 10^3/uL (130-400); WHITE BLOOD COUNT 6.1 10^3/uL (4.3-11.0)
[2020-12-27 05:46] LABS: POTASSIUM 3.1 MMOL/L (3.6-5.0)
[2020-12-27 05:47] LABS: CALCIUM 8.7 MG/DL (8.5-10.1)
[2020-12-27 05:49] LABS: TOTAL PROTEIN 5.7 GM/DL (6.4-8.2)
[2020-12-27 05:50] LABS: BILIRUBIN,TOTAL 0.5 MG/DL (0.1-1.0)
[2020-12-27 05:52] LABS: CREATININE SERUM 0.56 MG/DL (0.60-1.30); PHOSPHORUS 3.3 MG/DL (2.3-4.7)
[2020-12-27 05:55] LABS: MAGNESIUM 1.9 MG/DL (1.6-2.4)
[2020-12-27] MEDS: MAGNESIUM 1 GM/100 ML IVPB 100 ML IV SCH (06:29)
[2020-12-27] MEDS: KCL 20 MEQ TAB (K-DUR) PO SCH (06:29)
[2020-12-27] MEDS: POTASSIUM CL 10MEQ/50ML IVPB 50 ML IV SCH ×5 (06:29→09:05)
--- NOTE | 2020-12-27 09:26 | Progress Note - Hospitalist ---
Subjective HPI/CC On Admission Date Seen by Provider: Dec 27, 2020 Time Seen by Provider: 09:21 Mr. Salinas is a 50-year-old white male presented to the office at his 's insistence who accompanied him due to a recent history of falls. He reports his first fall on November 14 at which time he injured his low back. Following that ti me he has noted numbness in his legs and has had for 5 subsequent falls none from height. He denied headache but reported generalized weakness. He admitted to longstanding heavy alcohol consumption for which he reports he drinks Granda light 3-4 sixpacks per day. It has been 7 years since his last office visit and he only came in because of his 's insistence. Ports his appetite has been poor and he thinks he is probably lost 20 to 30 pounds by our office scales compared to 7 years ago he is down 40 pounds. He reports some nausea denies abdominal pain denies orange urine and he does not recall the last period of time he left without heavy alcohol consumption. 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 He reports onset of a tremor for at least the past several months worse with action less so at rest and noting that when he drinks his tremor goes away he denies knowledge of any family history for tremor essential or Parkinson's disease. He denies night sweats chills fever orthopnea PND or pedal edema and denies abdominal distention is noted no melena or bright red blood per rectum. Subjective/Events-last exam pt reports hurting "mentally and physically" today. just states arms are sore since working with PT though. Otherwise no complaints. Knows he is in [place] and in the hospital though calls it "[place]." Objective Exam Vital Signs Vital Signs Date Time Temp Pulse Resp B/P (MAP) Pulse Ox O2 Delivery O2 Flow Rate FiO2 12/27/20 08:21 36.1 12/27/20 08:00 Nasal Cannula 3.00 12/27/20 06:00 68 161/97 (129) 99 12/27/20 03:00 37 12/22/20 07:51 30 Capillary Refill : General Appearance: No Apparent Distress, WD/WN Respiratory: Lungs Clear, No Respiratory Distress Cardiovascular: Regular Rate, Rhythm, No Murmur Gastrointestinal: Normal Bowel Sounds, Non Tender, Soft Neurologic/Psychiatric: Alert, Oriented x3 (though slowed mentation) Results/Procedures Lab Laboratory Tests 12/27/20 05:25 Patient resulted labs reviewed. Imaging: Reviewed Imaging Report Assessment/Plan Assessment and Plan Assess & Plan/Chief Complaint Alcohol withdrawal with perceptual disturbance Alcohol dependence Alcohol myopathy Hypokalemia Obstructive sleep apnea CIWA protocol Continue Ativan as needed Remains on Precedex- wean as able as is improving s/p phenobarbital TeleICU following PT/OT SW consulted MRI concerning for possible normal pressure hydrocephalus Consider further evaluation once through acute withdrawal DVT prophylaxis: Lovenox Alcoholic hepatitis, resolved Hyponatremia, resolved STACI MCNAMARA MD Dec 27, 2020 09:26
[2020-12-27] MEDS: LORazepam INJ 2 MG/ML (ATIVAN) VIAL IM/IV PRN (09:48)
[2020-12-27] MEDS: LORazepam 1 MG (ATIVAN) TAB PO SCH ×3 (10:06→20:02)
--- NOTE | 2020-12-27 10:25 | Physical Therapy Daily Note ---
PT Daily Note-Current Subjective Patient is agitated this morning. Reluctantly agrees to PT. Mental Status Patient Orientation: Confused Attachments: Central Line, Castillo Catheter Transfers SCALE: Activities may be completed with or without assistive devices. 8-Jknzxhncte-slpyqzh completes the activity by him/herself with no assistance from a helper. 5-Set-up or Clean-up Assistance-helper sets up or cleans up; patient completes activity. [place] assists only prior to or following the activity. 4-Supervision or Touching Assistance-helper provides verbal cues and/or touching/steadying and/or contact guard assistance as patient completes activity. Assistance may be provided throughout the activity or intermittently. 3-Partial/Moderate Assistance-helper does LESS THAN HALF the effort. [place] lifts, holds or supports trunk or limbs, but provides less than half the effort. 2-Substantial/Maximal Assistance-helper does MORE THAN HALF the effort. [place] lifts or holds trunk or limbs and provides more than half the effort. 7-Smnjhhfzi-haqaeu does ALL the effort. Patient does none of the effort to complete the activity. Or, the assistance of 2 or more helpers is required for the patient to complete the activity. If activity was not attempted, code reason: 7-Patient Refused. 9-Not Applicable-not attempted and the patient did not perform the activity before the current illness, exacerbation or injury. 10-Not Attempted due to Environmental Limitations-(lack of equipment, weather restraints, etc.). 88-Not Attempted due to Medical Conditions or Safety Concerns. Sit to Lying (QC): 4 Lying to Sitting/Side of Bed(Q: 4 Sit to Stand (QC): 3 (x 4 sets standing in FWW with noted bilateral knee and trunk flexed posture with inability to correct) Gait Training Distance: 6 side steps Gait Assistive Device: FWW max assist with this due to patient having difficulty with motor planning Assessment Patient requires time to complete all functional tasks. Per RN, patient returns to bed with alarm activated and 4 rails up. Increase activity as tolerated by patient. PT Short Term Goals Short Term Goals Time Frame: Jan 05, 2021 PT Plan Treatment/Plan Treatment Plan: Continue Plan of Care Treatment Plan: Bed Mobility, Education, Functional Activity Jem, Functional Strength, Group Therapy, Gait, Safety, Therapeutic Exercise, Transfers Treatment Duration: Mar 02, 2021 Frequency: 6 times per week Estimated Hrs Per Day: .25 hour per day Time/GCodes Time In: 745 Time Out: 812 Total Billed Treatment Time: 27 Total Billed Treatment 1 visit FA x 2 27 min ALIZE GALDAMEZ PT Dec 27, 2020 10:25
--- NOTE | 2020-12-27 10:26 | Tele-ICU Progress Note ---
Subjective Date Seen by a Provider: Dec 27, 2020 Time Seen by a Provider: 10:26 Sepsis Event Evaluation Height, Weight, BMI Height: '" Weight: lbs. oz. kg; 23.84 BMI Method: Exam Exam Patient acknowledged, consented, and participated in this virtual visit which was conducted using real time audio/video Vital Signs Date Time Temp Pulse Resp B/P (MAP) Pulse Ox O2 Delivery O2 Flow Rate FiO2 12/27/20 08:21 36.1 12/27/20 08:00 Nasal Cannula 3.00 12/27/20 06:00 68 161/97 (129) 99 Nasal Cannula 3.00 12/27/20 05:00 69 157/85 (119) 98 Nasal Cannula 3.00 12/27/20 04:00 75 155/91 (113) 97 Nasal Cannula 3.00 12/27/20 04:00 Nasal Cannula 3.00 12/27/20 03:00 93 37 156/93 (119) 94 Nasal Cannula 3.00 12/27/20 02:00 89 14 189/111 (141) 94 Nasal Cannula 3.00 12/27/20 01:13 95 16 139/95 (110) 98 Nasal Cannula 3.00 12/27/20 01:00 79 12/27/20 00:00 35.9 12/27/20 00:00 72 9 174/101 (125) 98 Nasal Cannula 3.00 12/27/20 00:00 Nasal Cannula 3.00 12/26/20 23:26 80 8 164/96 (118) 97 Nasal Cannula 3.00 12/26/20 22:00 73 10 175/112 (133) 98 Nasal Cannula 3.00 12/26/20 21:00 68 9 165/100 (124) 100 Nasal Cannula 3.00 12/26/20 20:15 Nasal Cannula 3.00 12/26/20 20:00 53 157/81 (104) 100 Nasal Cannula 3.00 12/26/20 19:56 36.0 12/26/20 19:00 57 13 138/83 (101) 99 Nasal Cannula 3.00 12/26/20 19:00 57 12/26/20 18:00 59 14 136/84 (101) 96 Nasal Cannula 3.00 12/26/20 17:00 65 15 137/73 (94) 95 Nasal Cannula 3.00 12/26/20 16:00 Nasal Cannula 3.00 12/26/20 16:00 36.4 12/26/20 16:00 58 11 174/81 (112) 99 Nasal Cannula 3.00 12/26/20 15:13 81 171/101 12/26/20 15:00 87 13 171/101 (133) 98 Nasal Cannula 3.00 12/26/20 14:00 107 33 153/102 (123) 97 Nasal Cannula 3.00 12/26/20 13:00 83 12/26/20 13:00 112 24 159/100 (119) 94 Nasal Cannula 3.00 12/26/20 12:00 66 24 158/92 (114) 92 Nasal Cannula 3.00 12/26/20 12:00 Nasal Cannula 3.00 12/26/20 12:00 36.0 12/26/20 11:00 61 19 158/89 (112) 98 Nasal Cannula 3.00 I & O 12/27/20 07:00 Intake Total 2500 ml Output Total 2150 ml Balance 350 ml Height & Weight Height: '" Weight: lbs. oz. kg; 23.84 BMI Method: General Appearance: No Apparent Distress, WD/WN HEENT: Other (No scleral icterus extraocular muscles are intact with no difficulty with horizontal gaze or does seem to be a little bit of impairment with vertical gaze however pupils are equal round react to light and accommodation.) Neck: Full Range of Motion, Normal Inspection, Non Tender Respiratory: Lungs Clear, No Respiratory Distress Cardiovascular: Regular Rate, Rhythm, No Murmur Extremity: Normal Inspection, Non Tender, No Pedal Edema Neurologic/Psychiatric: Alert, Oriented x3 Skin: Normal Color, Warm/Dry Results Lab Laboratory Tests 12/26/20 06:15 12/27/20 05:25 Assessment/Plan Assessment/Plan (Tele-ICU Physician , Progress Note ) Available chart/ vitals / labs / Images reviewed Video assessment done using teleICU camera, rest of exam as per RN Discussed with RN , EXAM PER RN Events overnight : precedex, off ativan , Afebrile I/O = even Drips: PRECEDEX Pressors: , hemodynamically stable Consultants: 12/20 - s/p falls 12/21 - to ICU - with DT, AT NIGHT precedex, off ativan , PLACED ON BVAPOTHERM 40% 30 l 12/22 - STILL CONFUSED , WEANED TO 2 l nc 12/23 - STOPPED PHENOBARB 12/27 - precedex , ativan [facility] course: A/P ETOH abuse / withdrawal syndrome / DT - reported hallucinations. No seizures - monitor -Continue supportive care on [facility] protocol- cont benzo, WILL START SCHEDULED BENZO PO in addition to prn ,(phenobarb 60 BID 12/21 = stopped 12/23 due to lethargy ) ,prn precedex -monitor vitals -Thiamine and folate hypoxia - probably due to low TV with seation , CXR , WNL monitor for YULIA - off IVF Hyponatremia, kypokalemia - TSH WNL , slow appropriate Rise noted - continue to monitor , replace K Recent falls and low back pain lower extremity numbness - ongoing w/up by PCP Lines : periph (Central Line Necessity Reviewed) Castillo: OG: Nutrition: po Analgesia: Anxiety/ delirium VTE Prophylaxis: scd , lovenox Stress Ulcer Prophylaxis: na - PO Glycemic Control: Plans in collaboration with bedside consultants and IM MDs. Discussed with RN to reach out if any questions or concerns A total of 31 minutes of critical care time was devoted to this patient today, required to treat and/or prevent further deterioration of critical care condition ( as above ) . ESTELLE PALUMBO MD Dec 27, 2020 10:26
--- NOTE | 2020-12-27 13:04 | Pulmonary Progress Note ---
JULISSA GOMEZ MED STUDENT 12/27/20 1304: Subjective Date Seen by a Provider: Dec 27, 2020 Time Seen by a Provider: 08:05 Subjective/Events-last exam Patient remains on a precedex gtt. He is having visual hallucinations. Vitals stable per monitor. RN reports he didn't receive any ativan overnight for CIWA instead precedex was utilized alone. Review of Systems General: Other (unable to obtain) HEENT: Other (unable to obtain) Pulmonary: Other (unable to obtain) Cardiovascular: Other (unable to obtain) Gastrointestinal: Other (unable to obtain) Genitourinary: Other (unable to obtain) Musculoskeletal: other (unable to obtain) Neurological: Other (unable to obtain) Sepsis Event Evaluation Height, Weight, BMI Height: '" Weight: lbs. oz. kg; 23.84 BMI Method: Exam Exam Patient acknowledged, consented, and participated in this virtual visit which was conducted using real time audio/video Vital Signs Date Time Temp Pulse Resp B/P (MAP) Pulse Ox O2 Delivery O2 Flow Rate FiO2 12/27/20 12:23 90 12/27/20 12:00 117 145/99 (114) 98 Nasal Cannula 3.00 12/27/20 12:00 Nasal Cannula 3.00 12/27/20 11:00 96 130/92 (105) 96 Nasal Cannula 3.00 12/27/20 10:50 Nasal Cannula 3.00 12/27/20 10:00 84 140/98 (112) 99 Nasal Cannula 3.00 12/27/20 09:00 137/97 (110) 98 Nasal Cannula 3.00 12/27/20 08:21 36.1 12/27/20 08:00 Nasal Cannula 3.00 12/27/20 07:00 137/97 (110) 99 Nasal Cannula 3.00 12/27/20 06:00 68 161/97 (129) 99 Nasal Cannula 3.00 12/27/20 05:00 69 157/85 (119) 98 Nasal Cannula 3.00 12/27/20 04:00 75 155/91 (113) 97 Nasal Cannula 3.00 12/27/20 04:00 Nasal Cannula 3.00 12/27/20 03:00 93 37 156/93 (119) 94 Nasal Cannula 3.00 12/27/20 02:00 89 14 189/111 (141) 94 Nasal Cannula 3.00 12/27/20 01:13 95 16 139/95 (110) 98 Nasal Cannula 3.00 12/27/20 01:00 79 12/27/20 00:00 35.9 12/27/20 00:00 72 9 174/101 (125) 98 Nasal Cannula 3.00 12/27/20 00:00 Nasal Cannula 3.00 12/26/20 23:26 80 8 164/96 (118) 97 Nasal Cannula 3.00 12/26/20 22:00 73 10 175/112 (133) 98 Nasal Cannula 3.00 12/26/20 21:00 68 9 165/100 (124) 100 Nasal Cannula 3.00 12/26/20 20:15 Nasal Cannula 3.00 12/26/20 20:00 53 157/81 (104) 100 Nasal Cannula 3.00 12/26/20 19:56 36.0 12/26/20 19:00 57 13 138/83 (101) 99 Nasal Cannula 3.00 12/26/20 19:00 57 12/26/20 18:00 59 14 136/84 (101) 96 Nasal Cannula 3.00 12/26/20 17:00 65 15 137/73 (94) 95 Nasal Cannula 3.00 12/26/20 16:00 Nasal Cannula 3.00 12/26/20 16:00 36.4 12/26/20 16:00 58 11 174/81 (112) 99 Nasal Cannula 3.00 12/26/20 15:13 81 171/101 12/26/20 15:00 87 13 171/101 (133) 98 Nasal Cannula 3.00 12/26/20 14:00 107 33 153/102 (123) 97 Nasal Cannula 3.00 I & O 12/27/20 07:00 Intake Total 2500 ml Output Total 2150 ml Balance 350 ml Height & Weight Height: '" Weight: lbs. oz. kg; 23.84 BMI Method: General Appearance: No Apparent Distress, WD/WN HEENT: PERRL/EOMI, Moist Mucous Membranes, Other (No scleral icterus extraocular muscles are intact with no difficulty with horizontal gaze or does seem to be a little bit of impairment with vertical gaze however pupils are equal round react to light and accommodation.) Neck: Full Range of Motion, Normal Inspection, Non Tender Respiratory: Chest Non Tender, Lungs Clear, Normal Breath Sounds, No Accessory Muscle Use, No Respiratory Distress Cardiovascular: Regular Rate, Rhythm, No Edema, No Murmur, Normal Peripheral Pulses Peripheral Pulses: 2+ Dorsalis Pedis (R), 2+ Left Dors-Pedis (L), 2+ Radial Pulses (R), 2+ Radial Pulses (L) Gastrointestinal: normal bowel sounds, non tender, soft; No distended, No guarding, No rebound, No tenderness Extremity: Normal Capillary Refill, Normal Inspection, Non Tender, No Pedal Edema Neurologic/Psychiatric: Alert, Disoriented (to place, time, and situation intermittenlty), Other (confusion) Skin: Normal Color, Warm/Dry Lymphatic: No Adenopathy Results Lab Laboratory Tests 12/26/20 06:15 12/27/20 05:25 Assessment/Plan Assessment/Plan Alcohol withdrawal -scheduled po ativan added today -CIWA protocol -prn precedex agitation/restlessness Hypokalemia -k 3.1 today -replete today per protocol Transaminitis -resolved -continue to monitor Low back pain S/P multiple recent falls -MRI lumbar spine shows multilevel degenerative disease -study limited due to motion artifact Alcohol use disorder -encourage alcohol cessation when detoxed DVT prophylaxis -lovenox ESTELLE PALUMBO MD 12/28/20 1251: Supervisory-Addendum Brief Verification & Attestation Participated in pt care: history, MDM, physical Personally performed: history, MDM, supervision of care Care discussed with: Medical Student Procedures: n/a A medical student performed and documented this service. I reviewed all information documented by the medical student . Medical student performed patients physical exam . Medical decision making was done during tele-rounds with this medical student and a bedside RN . Please see my notes for details /clarification. JULISSA GOMEZ MED STUDENT Dec 27, 2020 13:04 ESTELLE PALUMBO MD Dec 28, 2020 12:51
[2020-12-27] MEDS: LORazepam INJ 2 MG/ML (ATIVAN) VIAL IV PRN ×2 (14:07→17:53)
[2020-12-27] MEDS: ENOXAPARIN 40 MG/0.4 ML (LOVENOX) SYR SC SCH (16:24)
[2020-12-27] MEDS: DexMEDEtomidine 250 ML DRIP 250 ML IV SCH (22:25)
[2020-12-28] VITALS (23 sets, daily range): BP systolic 126–198; BP diastolic 87–133
[2020-12-28] MEDS: LORazepam INJ 2 MG/ML (ATIVAN) VIAL IV PRN ×5 (01:02→19:34)
[2020-12-28] MEDS: KCL 20 MEQ TAB (K-DUR) PO SCH (06:00)
[2020-12-28] MEDS: POTASSIUM CL 10MEQ/50ML IVPB 50 ML IV SCH (06:00)
[2020-12-28] MEDS: MAGNESIUM 1 GM/100 ML IVPB 100 ML IV SCH (06:00)
[2020-12-28 06:07] LABS: BASOPHILS # (AUTO) 0.1 10^3/uL (0.0-0.1); BASOPHILS % (AUTO) 1 % (0-10); EOSINOPHILS # (AUTO) 0.1 10^3/uL (0.0-0.3); EOSINOPHILS % (AUTO) 1 % (0-10); HEMATOCRIT 39 % (40-54); HEMOGLOBIN 13.7 g/dL (13.3-17.7); LYMPHOCYTES # (AUTO) 1.1 10^3/uL (1.0-4.0); LYMPHOCYTES % (AUTO) 18 % (12-44); MEAN CORPUSCULAR HEMOGLOBIN 33 pg (25-34); MEAN CORPUSCULAR HGB CONC 35 g/dL (32-36); MEAN CORPUSCULAR VOLUME 95 fL (80-99); MEAN PLATELET VOLUME 10.7 fL (9.0-12.2); MONOCYTES # (AUTO) 1.1 10^3/uL (0.0-1.0); MONOCYTES % (AUTO) 18 % (0-12); NEUTROPHILS % (AUTO) 62 % (42-75); PLATELET COUNT 217 10^3/uL (130-400); WHITE BLOOD COUNT 6.4 10^3/uL (4.3-11.0)
[2020-12-28 06:19] LABS: ALBUMIN 3.2 GM/DL (3.2-4.5); POTASSIUM 3.5 MMOL/L (3.6-5.0)
[2020-12-28 06:21] LABS: CALCIUM 8.9 MG/DL (8.5-10.1)
[2020-12-28 06:22] LABS: TOTAL PROTEIN 6.1 GM/DL (6.4-8.2)
[2020-12-28 06:24] LABS: BILIRUBIN,TOTAL 0.5 MG/DL (0.1-1.0)
[2020-12-28 06:25] LABS: PHOSPHORUS 2.9 MG/DL (2.3-4.7)
[2020-12-28 06:26] LABS: CREATININE SERUM 0.6 MG/DL (0.60-1.30)
[2020-12-28 06:28] LABS: MAGNESIUM 1.9 MG/DL (1.6-2.4)
[2020-12-28] MEDS ORDERED: KCL 20 MEQ TAB (K-DUR) PO ONE (09:00)
[2020-12-28] MEDS: LORazepam 1 MG (ATIVAN) TAB PO SCH ×3 (09:10→19:45)
--- NOTE | 2020-12-28 09:27 | Pulmonary Progress Note ---
JULISSA GOMEZ MED STUDENT 12/28/20 0927: Subjective Date Seen by a Provider: Dec 28, 2020 Time Seen by a Provider: 08:00 Subjective/Events-last exam Patient remains confused and disoriented and continues to have visual hallucinations. Has been tachycardic overnight on and off. HR 120s-130's currently. Precedex off currently per nurse. Continues to require a sitter. Review of Systems General: No Chills, No Night Sweats HEENT: No Head Aches, No Visual Changes; Eye Pain (reports eye itching and burning) Pulmonary: No Dyspnea, No Cough Cardiovascular: No: Chest Pain, Palpitations Gastrointestinal: No: Nausea, Vomiting Genitourinary: No Dysuria, No Frequency; Other (hurst) Musculoskeletal: No: neck pain, back pain Neurological: Confusion; No: Weakness, Numbness, Change in speech, Seizures Sepsis Event Evaluation Height, Weight, BMI Height: '" Weight: lbs. oz. kg; 23.84 BMI Method: Exam Exam Patient acknowledged, consented, and participated in this virtual visit which was conducted using real time audio/video Vital Signs Date Time Temp Pulse Resp B/P (MAP) Pulse Ox O2 Delivery O2 Flow Rate FiO2 12/28/20 07:31 37.6 Room Air 12/28/20 06:00 114 24 163/116 (129) 100 Nasal Cannula 3.00 12/28/20 05:00 130 8 166/122 (133) 99 Nasal Cannula 3.00 12/28/20 04:23 36.6 12/28/20 04:00 128 11 168/103 (123) 100 Nasal Cannula 3.00 12/28/20 04:00 Nasal Cannula 3.00 12/28/20 03:00 110 25 142/107 (123) 100 Nasal Cannula 3.00 12/28/20 02:00 88 11 166/103 (116) 100 Nasal Cannula 3.00 12/28/20 01:00 88 14 178/106 (126) 100 Nasal Cannula 3.00 12/28/20 01:00 88 12/28/20 00:00 Nasal Cannula 3.00 12/28/20 00:00 80 8 162/104 (137) 99 Nasal Cannula 3.00 12/27/20 23:51 36.4 12/27/20 23:00 81 15 151/91 (102) 100 Nasal Cannula 3.00 12/27/20 22:00 72 182/109 (133) 99 Nasal Cannula 3.00 12/27/20 21:00 87 11 145/113 (137) 100 Nasal Cannula 3.00 12/27/20 20:11 35.4 12/27/20 20:00 Nasal Cannula 3.00 12/27/20 20:00 62 173/104 (137) 97 Nasal Cannula 3.00 12/27/20 19:00 66 168/106 (126) 100 Nasal Cannula 3.00 12/27/20 19:00 66 12/27/20 18:00 67 9 178/104 (128) 100 Nasal Cannula 3.00 12/27/20 17:00 69 11 147/101 (116) 100 Nasal Cannula 3.00 12/27/20 16:00 72 8 165/94 (117) 91 Nasal Cannula 3.00 12/27/20 15:30 Nasal Cannula 3.00 12/27/20 15:00 71 177/107 (130) 100 Nasal Cannula 3.00 12/27/20 14:00 106 152/101 (118) 100 Nasal Cannula 3.00 12/27/20 13:41 Nasal Cannula 3.00 12/27/20 13:00 116 144/98 (113) 100 Nasal Cannula 3.00 12/27/20 12:23 90 12/27/20 12:00 117 145/99 (114) 98 Nasal Cannula 3.00 12/27/20 12:00 Nasal Cannula 3.00 12/27/20 11:00 96 130/92 (105) 96 Nasal Cannula 3.00 12/27/20 10:50 Nasal Cannula 3.00 12/27/20 10:00 84 140/98 (112) 99 Nasal Cannula 3.00 I & O 12/28/20 07:00 Intake Total 2500 ml Output Total 1975 ml Balance 525 ml Height & Weight Height: '" Weight: lbs. oz. kg; 23.84 BMI Method: General Appearance: No Apparent Distress, WD/WN HEENT: PERRL/EOMI, Moist Mucous Membranes, Other (No scleral icterus extraocular muscles are intact with no difficulty with horizontal gaze or does seem to be a little bit of impairment with vertical gaze however pupils are equal round react to light and accommodation.) Neck: Full Range of Motion, Normal Inspection, Non Tender Respiratory: Chest Non Tender, Lungs Clear, Normal Breath Sounds, No Accessory Muscle Use, No Respiratory Distress; No Rhonci, No Stridor, No Wheezing Cardiovascular: Regular Rate, Rhythm, No Edema, No Murmur, Normal Peripheral Pulses Capillary Refill: Less Than 3 Seconds Peripheral Pulses: 2+ Dorsalis Pedis (R), 2+ Left Dors-Pedis (L), 2+ Radial Pulses (R), 2+ Radial Pulses (L) Gastrointestinal: normal bowel sounds, non tender, soft; No distended, No guarding, No rebound, No tenderness Extremity: Normal Capillary Refill, Normal Inspection, Non Tender, No Calf Tenderness, No Pedal Edema Neurologic/Psychiatric: Alert, Disoriented (to place, time, and situation intermittenlty), Other (confusion) Skin: Normal Color, Warm/Dry Lymphatic: No Adenopathy Results Lab Laboratory Tests 12/27/20 05:25 12/28/20 05:30 Assessment/Plan Assessment/Plan Alcohol withdrawal -scheduled po ativan TID on 12-27 started -CIWA protocol -prn precedex agitation/restlessness Sinus tachycardia -sustaining HR in 120's-140's this am -toprolol 12.5mg po BID started Hypokalemia -k 3.5 today -replete today per protocol Transaminitis -resolved -continue to monitor Low back pain S/P multiple recent falls -MRI lumbar spine shows multilevel degenerative disease -study limited due to motion artifact Alcohol use disorder -encourage alcohol cessation when detoxed DVT prophylaxis -loveESTELLE Mcwilliams MD 12/28/20 1250: Assessment/Plan Assessment/Plan A medical student performed and documented this service. I reviewed all information documented by the medical student . Medical student performed patients physical exam . Medical decision making was done during tele-rounds with this medical student and a bedside RN . Please see my notes for details /clarification. Supervisory-Addendum Brief Verification & Attestation Participated in pt care: history, MDM, physical Personally performed: history, MDM, supervision of care Care discussed with: Medical Student Procedures: n/a A medical student performed and documented this service. I reviewed all information documented by the medical student . Medical student performed patients physical exam . Medical decision making was done during tele-rounds with this medical student and a bedside RN . Please see my notes for details /clarification. JULISSA GOMEZ MED STUDENT Dec 28, 2020 09:27 ESTELLE PALUMBO MD Dec 28, 2020 12:50
[2020-12-28] MEDS: LORazepam 1 MG (ATIVAN) TAB PO PRN (10:01)
--- NOTE | 2020-12-28 10:01 | Progress Note - Hospitalist ---
Subjective HPI/CC On Admission Date Seen by Provider: Dec 28, 2020 Time Seen by Provider: 10:00 Mr. Salinas is a 50-year-old white male presented to the office at his 's insistence who accompanied him due to a recent history of falls. He reports his first fall on November 14 at which time he injured his low back. Following that ti me he has noted numbness in his legs and has had for 5 subsequent falls none from height. He denied headache but reported generalized weakness. He admitted to longstanding heavy alcohol consumption for which he reports he drinks Granda light 3-4 sixpacks per day. It has been 7 years since his last office visit and he only came in because of his 's insistence. Ports his appetite has been poor and he thinks he is probably lost 20 to 30 pounds by our office scales compared to 7 years ago he is down 40 pounds. He reports some nausea denies abdominal pain denies orange urine and he does not recall the last period of time he left without heavy alcohol consumption. 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 He reports onset of a tremor for at least the past several months worse with action less so at rest and noting that when he drinks his tremor goes away he denies knowledge of any family history for tremor essential or Parkinson's disease. He denies night sweats chills fever orthopnea PND or pedal edema and denies abdominal distention is noted no melena or bright red blood per rectum. Subjective/Events-last exam Pt reports doing ok today. Pleasant and conversant but with further questioning quite confused. Asks me to be on the look out for his dog a great pyranees. Objective Exam Vital Signs Vital Signs Date Time Temp Pulse Resp B/P (MAP) Pulse Ox O2 Delivery O2 Flow Rate FiO2 12/28/20 07:31 37.6 Room Air 12/28/20 06:00 114 24 163/116 (129) 100 3.00 12/22/20 07:51 30 Capillary Refill : Less Than 3 Seconds General Appearance: No Apparent Distress, WD/WN Respiratory: Lungs Clear, No Respiratory Distress Cardiovascular: No Murmur, Tachycardia Gastrointestinal: Normal Bowel Sounds, Soft Extremity: No Calf Tenderness, No Pedal Edema Neurologic/Psychiatric: Alert, Disoriented (pleasantly confused) Results/Procedures Lab Laboratory Tests 12/28/20 05:30 Patient resulted labs reviewed. Imaging: Reviewed Imaging Report Assessment/Plan Assessment and Plan Assess & Plan/Chief Complaint Alcohol withdrawal with perceptual disturbance Alcohol dependence Alcohol myopathy Hypokalemia Obstructive sleep apnea CIWA protocol Continue Ativan as needed Precedex off since yesterday s/p phenobarbital TeleICU following PT/OT SW consulted MRI concerning for possible normal pressure hydrocephalus Consider further evaluation once through acute withdrawal and able to tolerate procedure DVT prophylaxis: Lovenox Alcoholic hepatitis, resolved Hyponatremia, resolved STACI MCNAMARA MD Dec 28, 2020 10:01
[2020-12-28] MEDS: ONDANSETRON 4 MG/2 ML (SDV) Z0FRAN IV PRN (10:05)
[2020-12-28] MEDS ORDERED: meTOprolol TARTRATE 25 MG (LOPRESSOR) TABLET ONE (10:15)
[2020-12-28] MEDS ORDERED: meTOprolol TARTRATE 25 MG (LOPRESSOR) TABLET PO SCH ×2 (10:30→21:00)
--- NOTE | 2020-12-28 11:32 | Tele-ICU Progress Note ---
Subjective Date Seen by a Provider: Dec 28, 2020 Time Seen by a Provider: 09:52 Sepsis Event Evaluation Height, Weight, BMI Height: '" Weight: lbs. oz. kg; 23.84 BMI Method: Exam Exam Patient acknowledged, consented, and participated in this virtual visit which was conducted using real time audio/video Vital Signs Date Time Temp Pulse Resp B/P (MAP) Pulse Ox O2 Delivery O2 Flow Rate FiO2 12/28/20 07:31 37.6 Room Air 12/28/20 07:00 158 12/28/20 06:00 114 24 163/116 (129) 100 Nasal Cannula 3.00 12/28/20 05:00 130 8 166/122 (133) 99 Nasal Cannula 3.00 12/28/20 04:23 36.6 12/28/20 04:00 128 11 168/103 (123) 100 Nasal Cannula 3.00 12/28/20 04:00 Nasal Cannula 3.00 12/28/20 03:00 110 25 142/107 (123) 100 Nasal Cannula 3.00 12/28/20 02:00 88 11 166/103 (116) 100 Nasal Cannula 3.00 12/28/20 01:00 88 14 178/106 (126) 100 Nasal Cannula 3.00 12/28/20 01:00 88 12/28/20 00:00 Nasal Cannula 3.00 12/28/20 00:00 80 8 162/104 (137) 99 Nasal Cannula 3.00 12/27/20 23:51 36.4 12/27/20 23:00 81 15 151/91 (102) 100 Nasal Cannula 3.00 12/27/20 22:00 72 182/109 (133) 99 Nasal Cannula 3.00 12/27/20 21:00 87 11 145/113 (137) 100 Nasal Cannula 3.00 12/27/20 20:11 35.4 12/27/20 20:00 Nasal Cannula 3.00 12/27/20 20:00 62 173/104 (137) 97 Nasal Cannula 3.00 12/27/20 19:00 66 168/106 (126) 100 Nasal Cannula 3.00 12/27/20 19:00 66 12/27/20 18:00 67 9 178/104 (128) 100 Nasal Cannula 3.00 12/27/20 17:00 69 11 147/101 (116) 100 Nasal Cannula 3.00 12/27/20 16:00 72 8 165/94 (117) 91 Nasal Cannula 3.00 12/27/20 15:30 Nasal Cannula 3.00 12/27/20 15:00 71 177/107 (130) 100 Nasal Cannula 3.00 12/27/20 14:00 106 152/101 (118) 100 Nasal Cannula 3.00 12/27/20 13:41 Nasal Cannula 3.00 12/27/20 13:00 116 144/98 (113) 100 Nasal Cannula 3.00 12/27/20 12:23 90 12/27/20 12:00 117 145/99 (114) 98 Nasal Cannula 3.00 12/27/20 12:00 Nasal Cannula 3.00 I & O 12/28/20 07:00 Intake Total 2500 ml Output Total 1975 ml Balance 525 ml Height & Weight Height: '" Weight: lbs. oz. kg; 23.84 BMI Method: General Appearance: No Apparent Distress, WD/WN HEENT: PERRL/EOMI, Moist Mucous Membranes, Other (No scleral icterus extraocular muscles are intact with no difficulty with horizontal gaze or does seem to be a little bit of impairment with vertical gaze however pupils are equal round react to light and accommodation.) Neck: Full Range of Motion, Normal Inspection, Non Tender Respiratory: Chest Non Tender, Lungs Clear, Normal Breath Sounds, No Accessory Muscle Use, No Respiratory Distress; No Rhonci, No Stridor, No Wheezing Cardiovascular: Regular Rate, Rhythm, No Edema, No Murmur, Normal Peripheral Pulses Capillary Refill: Less Than 3 Seconds Peripheral Pulses: 2+ Dorsalis Pedis (R), 2+ Left Dors-Pedis (L), 2+ Radial Pulses (R), 2+ Radial Pulses (L) Gastrointestinal: normal bowel sounds, non tender, soft; No distended, No guarding, No rebound, No tenderness Extremity: Normal Capillary Refill, Normal Inspection, Non Tender, No Calf Tenderness, No Pedal Edema Neurologic/Psychiatric: Alert, Disoriented (to place, time, and situation intermittenlty), Other (confusion) Skin: Normal Color, Warm/Dry Lymphatic: No Adenopathy Results Lab Laboratory Tests 12/27/20 05:25 12/28/20 05:30 Assessment/Plan Assessment/Plan (Tele-ICU Physician , Progress Note ) Available chart/ vitals / labs / Images reviewed Video assessment done using teleICU camera, rest of exam as per RN Discussed with RN , EXAM PER RN Events overnight : precedex, off ativan , FEBRILE I/O =pos 700 Drips: PRECEDEX off 10 h ago Pressors: , hemodynamically stable Consultants: 12/20 - s/p falls 12/21 - to ICU - with DT, AT NIGHT precedex, off ativan , PLACED ON BVAPOTHERM 40% 30 l 12/22 - STILL CONFUSED , WEANED TO 2 l nc 12/23 - STOPPED PHENOBARB 12/27 - precedex , ativan CINY , SCHEDULED BENZO PO 12/28- FEVER A/P ETOH abuse / withdrawal syndrome / DT - reported hallucinations. No seizures - monitor -Continue supportive care on CIWA protocol- cont benzo, WILL START SCHEDULED BENZO PO 12/27 in addition to prn ,(phenobarb 60 BID 12/21 = stopped 12/23 due to lethargy ) ,prn precedex -monitor vitals -Thiamine and folate hypoxia 3L NC at night , ra now - probably due to low TV with seation , CXR , WNL monitor for YULIA - off IVF Hyponatremia, hypokalemia - TSH WNL , slow appropriate Rise noted - continue to monitor , replace K Recent falls and low back pain lower extremity numbness - ongoing w/up by PCP Fever 12/28 - n0 clear sourse of infection , WBC stable - will repeat cxr if persist Tachycardia - ? due to withdrowal - woll add beta blockers PO Lines : periph (Central Line Necessity Reviewed) Castillo: removed 12/27 OG: Nutrition: po Analgesia: Anxiety/ delirium VTE Prophylaxis: scd , lovenox Stress Ulcer Prophylaxis: na - PO Glycemic Control: Plans in collaboration with bedside consultants and IM MDs. Discussed with RN to reach out if any questions or concerns A total of 25 minutes of critical care time was devoted to this patient today, required to treat and/or prevent further deterioration of critical care condition ( as above ) . ESTELLE PALUMBO MD Dec 28, 2020 11:32
--- NOTE | 2020-12-28 12:10 | Physical Therapy Daily Note ---
PT Daily Note-Current Subjective Patient more alert on this date,however, remains confused with difficulty following simple direction. Live sitter present. Mental Status Patient Orientation: Confused Transfers SCALE: Activities may be completed with or without assistive devices. 4-Kurldsciup-gefnzac completes the activity by him/herself with no assistance from a helper. 5-Set-up or Clean-up Assistance-helper sets up or cleans up; patient completes activity. [place] assists only prior to or following the activity. 4-Supervision or Touching Assistance-helper provides verbal cues and/or touching/steadying and/or contact guard assistance as patient completes activity. Assistance may be provided throughout the activity or intermittently. 3-Partial/Moderate Assistance-helper does LESS THAN HALF the effort. [place] lifts, holds or supports trunk or limbs, but provides less than half the effort. 2-Substantial/Maximal Assistance-helper does MORE THAN HALF the effort. [place] lifts or holds trunk or limbs and provides more than half the effort. 5-Ilvvlrrks-ioszgu does ALL the effort. Patient does none of the effort to complete the activity. Or, the assistance of 2 or more helpers is required for the patient to complete the activity. If activity was not attempted, code reason: 7-Patient Refused. 9-Not Applicable-not attempted and the patient did not perform the activity before the current illness, exacerbation or injury. 10-Not Attempted due to Environmental Limitations-(lack of equipment, weather restraints, etc.). 88-Not Attempted due to Medical Conditions or Safety Concerns. Lying to Sitting/Side of Bed(Q: 2 Sit to Stand (QC): 2 Chair/Rmr-da-Cgqiq Xfer(QC): 2 sit to stand x 4 reps with patient resistive/retropulsive Gait Training Does the Patient Walk?: No and Walking Goal IS indicated Distance: 10' Walk 10 feet (QC): 2 Gait Assistive Device: FWW severely extended UE's with severe trunk and bilateral knee flexed posture/attempted CUTTING INSPECTOR x 2 without FWW, however, patient unable to motor plan to advance bilateral LE's Treatments PT and sitter/RN performed shower with PT addressing sit to stand transfers and sitting balance due to patient impulsive behavior and inability to follow simple direction. Assessment Patient up in recliner with live sitter present. Continue to address functional strength and mobility. PT Short Term Goals Short Term Goals Time Frame: Jan 05, 2021 PT Plan Treatment/Plan Treatment Plan: Continue Plan of Care Treatment Plan: Bed Mobility, Education, Functional Activity Jem, Functional Strength, Group Therapy, Gait, Safety, Therapeutic Exercise, Transfers Treatment Duration: Mar 02, 2021 Frequency: 6 times per week Estimated Hrs Per Day: .25 hour per day Time/GCodes Time In: 1055 Time Out: 1135 Total Billed Treatment Time: 40 Total Billed Treatment 1 visit FA x 3 40 min ALIZE GALDAMEZ PT Dec 28, 2020 12:10
[2020-12-28] MEDS ORDERED: meTOprolol TARTRATE 25 MG (LOPRESSOR) TABLET PO ONE (13:00)
[2020-12-28 13:05] LABS: CLARITY,URINE CLEAR; COLOR,URINE YELLOW; GLUCOSE, URINE (UA) NEGATIVE (NEGATIVE); KETONES,URINE 2+ (NEGATIVE); LEUKOCYTE ESTERASE ,URINE TRACE (NEGATIVE); NITRITE,URINE POSITIVE (NEGATIVE); PH,URINE 6.5 (5-9); PROTEIN,URINE NEGATIVE (NEGATIVE)
[2020-12-28] MEDS ORDERED: FOLIC ACID 1 MG TAB PO ONE (13:30)
[2020-12-28 13:31] LABS: ABG BASE EXCESS 2.6 MMOL/L (-2.5-2.5); ABG OXYGEN SATURATION 97 % (94-100); ABG PCO2 38 MMHG (35-45); ABG PH 7.46 (7.37-7.43); ABG PO2 84 MMHG (79-93); ABG TCO2 27.3 MMOL/L (21.0-31.0)
[2020-12-28 13:32] LABS: ALLENS TEST YES-POS; INSPIRED O2 ROOM AIR; PATIENT TEMP 37.3; VENTILATOR NO
[2020-12-28 13:33] LABS: BILIRUBIN,URINE 1+ (NEGATIVE)
[2020-12-28 13:34] LABS: BACTERIA,URINE NEGATIVE /HPF
--- NOTE | 2020-12-28 14:54 | Consultation-Cardiology ---
HPI-Cardiology Cardiology Consultation Date of Consultation 12/28/20 Date of Admission Time Seen by Provider: 16:00 Indication: Tachycardia HPI Ethan Salinas is a 60y/o M who first presented on 12/20/20 due to frequent falls. He admitted to drinking 3-4 6 packs of beer daily and could not remember the last time he had not used alcohol heavily. Appetite had been poor and he had lost 20- 30 pounds recently. Pt has been in the hospital since and is currently being treated for alcohol withdrawal. He has developed tachycardia. When I was in the room patient was disoriented, confused, and restless. He was unable to answer questions appropriately. HR at that time was 124. Pt has a sitter in the room with him. On my evaluation he was more arousable, awake, following commands, denied any chest pain, still disoriented to time. Heart rate is somewhat better around 110. Blood pressure is stable. Denied any chest pain or shortness of breath. Home Medications & Allergies Allergies: Coded Allergies: No Known Drug Allergies (Unverified , 12/20/20) Home Medication List Reviewed: Yes AVT-Otliwg-Qpwvsi Hx Patient Social History Marital Status: Employed/Student: employed Smoking Status: Never a Smoker Have you traveled recently?: No Alcohol Use?: Yes Past Medical History No known past medical history Family Medical History Family Medical Hx Unable to provide family history Review of Systems-General Review of Systems ROS-Unable to Obtain: unable to obtain Constitutional: see HPI, weakness, other (Unable to provide review of systems due to his current condition) Respiratory: No no symptoms reported; see HPI; No cough, No dyspnea on exertion, No hemoptysis, No orthopnea, No phlegm, No short of breath, No stridor, No wheezing, No other Cardiovascular: see HPI; No chest pain, No edema, No Hx of Intervention, No palpitations, No syncope, No vascular heart diseas, No other Reviewed Test Results Reviewed Test Results Lab Laboratory Tests 12/26/20 06:15: Red Blood Count 3.58L, Hemoglobin 12.0L, Hematocrit 35L, Monocytes (%) (Auto) 20H, Monocytes # (Auto) 1.1H, Potassium Level 2.9L, Creatinine 0.54L, Total P rotein 5.4L, Albumin 2.9L 12/27/20 05:25: Red Blood Count 3.79L, Hemoglobin 12.5L, Hematocrit 36L, Monocytes (%) (Auto) 20H, Monocytes # (Auto) 1.2H, Potassium Level 3.1L, Creatinine 0.56L, Total Protein 5.7L, Albumin 3.0L, Aspartate Amino Transf (AST/SGOT) 35H 12/28/20 05:30: Red Blood Count 4.10L, Hematocrit 39L, Monocytes (%) (Auto) 18H, Monocytes # (Auto) 1.1H, Potassium Level 3.5L, Total Protein 6.1L, Sodium Level 134L 12/28/20 11:55: Urine Specific [place] 1.015L, Urine Ketones 2+H, Urine Nitrite POSITIVEH, Urine Bilirubin 1+H, Urine Leukocyte Esterase TRACEH, Urine WBC 10-25H, Urine Mucus SMALLH 12/28/20 13:25: D-Dimer 7.26H, Arterial Blood pH 7.46H, Arterial Blood Base Excess 2.6H Physical Exam Physical Exam Vital Signs Vital Signs - First Documented 12/22/20 12/22/20 12/22/20 00:00 04:10 04:15 Temp 36.1 Pulse 55 Resp 10 B/P (MAP) 161/100 (120) Pulse Ox 100 O2 Delivery Vapotherm O2 Flow Rate 40.00 30.00 FiO2 30 Capillary Refill : Less Than 3 Seconds Height, Weight, BMI Height: '" Weight: lbs. oz. kg; 23.84 BMI Method: General Appearance: No Apparent Distress, WD/WN HEENT: PERRL/EOMI Neck: Supple; No JVD Respiratory: Chest Non Tender, Lungs Clear, Normal Breath Sounds, No Respiratory Distress; No Rhonci, No Stridor, No Wheezing Cardiovascular: No Murmur, Tachycardia Gastrointestinal: Non Tender, Soft Extremity: Normal Inspection, Non Tender, No Calf Tenderness, No Pedal Edema Neurologic/Psychiatric: Alert, Disoriented (to place and time), Other (confus ion. Mild hand tremor) Skin: Normal Color, Warm/Dry A/P-Cardiology Admission Diagnosis Sinus tachycardia Alcohol withdrawal UTI Confusion Assessment/Plan Sinus tachycardia, heart rate has ranged from 114-158 since this morning. Metoprolol increased to 50mg BID. Twelve-lead EKG was done showing sinus tachycardia, no acute ischemic abnormality. Causes for sinus tachycardia are probably agitation or anxiety or alcohol withdrawal in addition to poor intake and hypovolemia. I will try to give him some IV fluid and evaluate tolerance and response to it. Continue to monitor 2D echo done on December 28, 2020 showed EF 55-65 percent, left atrium mildly dilated, pulmonary artery pressure of 25 mmHg. No signs of pulmonary hypertension or strain pattern or heart failure. Alcohol withdrawal. Taking ativan 2mg TID PO. On CIWA protocol. PRN precedex for agitation or restlessness. Start folic acid. managed by tela[facility] UTI, started on rocephin, managed by medicine Hypokalema. 3.5 today. receiving potassium citrate. Continue to monitor Alcohol use disorder. recommend discontinuing alcohol use when detoxed. Transaminitis. resolved, continue to monitor DVT prophylaxis. Taking Lovenox 40mg Supervisory-Addendum Brief Verification & Attestation Participated in pt care: history, MDM, physical Personally performed: exam, history, MDM, supervision of care Care discussed with: Medical Student Procedures: n/a Results interpretation: Verified all documentation Verification and Attestation of Medical Student E/M Service A medical student performed and documented this service in my presence. I reviewed and verified all information documented by the medical student and made modifications to such information, when appropriate. I personally performed the physical exam and medical decision making. I made few modifications using italic font Miguel Blanco, Dec 28, 2020,16:33 SALVATORE VELEZ Dec 28, 2020 14:54 MIGUEL BLANCO MD Dec 28, 2020 16:33
[2020-12-28] MEDS: ENOXAPARIN 40 MG/0.4 ML (LOVENOX) SYR SC SCH (15:08)
[2020-12-28] MEDS: cefTRIAXone 1,000 MG in WATER (STERILE) FOR INJECTION 10 ML IV SCH (15:08)
[2020-12-28] MEDS ORDERED: NS IV 1000 ML 1,000 ML ONE (16:30)
[2020-12-28] MEDS: NS IV 1000 ML 1,000 ML IV SCH ×2 (16:33→18:37)
[2020-12-28] MEDS ORDERED: NS IV 1000 ML 1,000 ML IV SCH (16:45)
[2020-12-28] MEDS: meTOprolol TARTRATE 50 MG (LOPRESSOR) TAB PO SCH (19:45)
[2020-12-29] VITALS (24 sets, daily range): BP systolic 120–169; BP diastolic 77–120
[2020-12-29] MEDS: NS IV 1000 ML 1,000 ML IV SCH ×2 (02:21)
[2020-12-29 04:32] LABS: BASOPHILS # (AUTO) 0.1 10^3/uL (0.0-0.1); BASOPHILS % (AUTO) 1 % (0-10); EOSINOPHILS # (AUTO) 0.1 10^3/uL (0.0-0.3); EOSINOPHILS % (AUTO) 1 % (0-10); HEMATOCRIT 42 % (40-54); HEMOGLOBIN 14.6 g/dL (13.3-17.7); LYMPHOCYTES # (AUTO) 1.7 10^3/uL (1.0-4.0); LYMPHOCYTES % (AUTO) 22 % (12-44); MEAN CORPUSCULAR HEMOGLOBIN 34 pg (25-34); MEAN CORPUSCULAR HGB CONC 35 g/dL (32-36); MEAN CORPUSCULAR VOLUME 97 fL (80-99); MEAN PLATELET VOLUME 10.7 fL (9.0-12.2); MONOCYTES # (AUTO) 1.4 10^3/uL (0.0-1.0); MONOCYTES % (AUTO) 18 % (0-12); NEUTROPHILS # (AUTO) 4.4 10^3/uL (1.8-7.8); NEUTROPHILS % (AUTO) 57 % (42-75); PLATELET COUNT 256 10^3/uL (130-400); WHITE BLOOD COUNT 7.8 10^3/uL (4.3-11.0)
[2020-12-29 04:59] LABS: ALBUMIN 3.6 GM/DL (3.2-4.5); POTASSIUM 3.8 MMOL/L (3.6-5.0)
[2020-12-29 05:00] LABS: CALCIUM 9.3 MG/DL (8.5-10.1)
[2020-12-29 05:01] LABS: TOTAL PROTEIN 6.8 GM/DL (6.4-8.2)
[2020-12-29 05:03] LABS: BILIRUBIN,TOTAL 0.4 MG/DL (0.1-1.0)
[2020-12-29 05:04] LABS: PHOSPHORUS 3.3 MG/DL (2.3-4.7)
[2020-12-29 05:05] LABS: CREATININE SERUM 0.65 MG/DL (0.60-1.30)
[2020-12-29 05:08] LABS: MAGNESIUM 2.2 MG/DL (1.6-2.4)
[2020-12-29] MEDS: MAGNESIUM 1 GM/100 ML IVPB 100 ML IV SCH (05:19)
[2020-12-29] MEDS: KCL 20 MEQ TAB (K-DUR) PO SCH (05:19)
[2020-12-29] MEDS: POTASSIUM CL 10MEQ/50ML IVPB 50 ML IV SCH (05:19)
--- NOTE | 2020-12-29 08:01 | Cardiology Progress Note ---
Subjective Date Seen by Provider: Dec 29, 2020 Time Seen by Provider: 12:00 Subjective/Events-last exam Pt was sleeping this morning in no apparent distress. Was able to answer some questions. Denied having any chest pain, palpitations, or SOB. Patient was seen at bedside, sitting comfortably, still disoriented to time and person. No new complaint, heart rate is better Review of Systems General: No Chills, No Other (fever) Pulmonary: No Dyspnea, No Cough Cardiovascular: No: Chest Pain, Palpitations Neurological: No: Weakness, Numbness Objective-Cardiology Exam Last Set of Vital Signs Vital Signs 12/28/20 12/29/20 12/29/20 12/29/20 07:00 11:00 12:00 13:00 Temp 36.8 Pulse 99 Resp 17 B/P (MAP) 120/77 (91) Pulse Ox 99 O2 Delivery Room Air O2 Flow Rate 3.00 I&O Intake and Output 12/29/20 00:00 Intake Total 2725 ml Output Total 1450 ml Balance 1275 ml Intake Oral 1725 ml IV Total 1000 ml Output Urine Total 1450 ml # Voids 7 General: Alert, No Acute Distress, Other (Confused and disoriented. ) HEENT: Atraumatic, PERRLA, EOMI Neck: Supple, No JVD, No LAD Lungs: Clear to Auscultation, Normal Air Movement Heart: Regular Rate, Normal S1, Normal S2, No Murmurs Abdomen: Soft, No Tenderness Extremities: No Cyanosis, No Edema Skin: No Rashes, No Significant Lesion Neuro: Normal Speech, Sensation Intact Psych/Mental Status: Other (Disoriented and confused. Requires frequent redirection and reorienting. ) Results Lab Laboratory Tests 12/29/20 04:00 A/P-Cardiology Admission Diagnosis Sinus tachycardia Alcohol withdrawal UTI Confusion Assessment/Plan Sinus tachycardia, Heart rate has improved and was at 80 bpm this morning. Ranged from 114 into the 150s yesterday. Metoprolol was increased yesterday to 50mg BID and was given IV fluids. Twelve-lead EKG was done yesterday showing sinus tachycardia, no acute ischemic abnormality. Causes for sinus tachycardia are probably agitation or anxiety or alcohol withdrawal in addition to poor intake and hypovolemia. Continue to monitor 2D echo done on December 28, 2020 showed EF 55-65 percent, left atrium mildly dilated, pulmonary artery pressure of 25 mmHg. No signs of pulmonary hypertension or strain pattern or heart failure. Alcohol withdrawal. Taking ativan 2mg TID PO. On CIWA protocol. PRN precedex for agitation or restlessness. Started on folic acid, I will add multivitamin and vitamin B complex UTI, started on rocephin, managed by medicine Hypokalema. 3.5 today. receiving potassium citrate. Continue to monitor Alcohol use disorder. recommend discontinuing alcohol use when detoxed. Transaminitis. resolved, continue to monitor DVT prophylaxis. Taking Lovenox 40mg Supervisory-Addendum Brief Verification & Attestation Participated in pt care: history, MDM, physical Personally performed: exam, history, MDM, supervision of care Care discussed with: Medical Student Procedures: n/a Results interpretation: Verified all documentation Verification and Attestation of Medical Student E/M Service A medical student performed and documented this service in my presence. I reviewed and verified all information documented by the medical student and made modifications to such information, when appropriate. I personally performed the physical exam and medical decision making. Patient was sitting in a chair, eating lunch, still disoriented to time and person Starting folic acid and vitamin B complex Heart rate is better. Continue to monitor Miguel Blanco, Dec 29, 2020,16:03 SALVATORE VELEZ Dec 29, 2020 08:01 MIGUEL BLANCO MD Dec 29, 2020 13:09
[2020-12-29] MEDS: meTOprolol TARTRATE 50 MG (LOPRESSOR) TAB PO SCH ×2 (08:43→20:44)
[2020-12-29] MEDS: LORazepam 1 MG (ATIVAN) TAB PO SCH ×3 (08:43→20:44)
--- NOTE | 2020-12-29 09:36 | Physical Therapy Daily Note ---
PT Daily Note-Current Subjective Patient sitting upright in bed with tech in the room and having just finished breakfast. Patient agreeable to treatment. Reports he is in pain, however when asked numerous times he was unable to give a pain rating or describe where his pain was located. Mental Status Patient Orientation: Person Transfers SCALE: Activities may be completed with or without assistive devices. 7-Fipgzognzy-xiugoer completes the activity by him/herself with no assistance from a helper. 5-Set-up or Clean-up Assistance-helper sets up or cleans up; patient completes activity. [place] assists only prior to or following the activity. 4-Supervision or Touching Assistance-helper provides verbal cues and/or touching/steadying and/or contact guard assistance as patient completes activity. Assistance may be provided throughout the activity or intermittently. 3-Partial/Moderate Assistance-helper does LESS THAN HALF the effort. [place] lifts, holds or supports trunk or limbs, but provides less than half the effort. 2-Substantial/Maximal Assistance-helper does MORE THAN HALF the effort. [place] lifts or holds trunk or limbs and provides more than half the effort. 5-Luskoecwx-gbbbdm does ALL the effort. Patient does none of the effort to complete the activity. Or, the assistance of 2 or more helpers is required for the patient to complete the activity. If activity was not attempted, code reason: 7-Patient Refused. 9-Not Applicable-not attempted and the patient did not perform the activity before the current illness, exacerbation or injury. 10-Not Attempted due to Environmental Limitations-(lack of equipment, weather restraints, etc.). 88-Not Attempted due to Medical Conditions or Safety Concerns. Roll Left & Right (QC): 3 Sit to Lying (QC): 3 Lying to Sitting/Side of Bed(Q: 3 Sit to Stand (QC): 2 Chair/Emo-hn-Hnxmt Xfer(QC): 2 Patient performs sit to stand x 3 with mod/max A; attempted use of FWW x 2 however patient unable to stand fully erect. Keeps his hips flexed and pelvis away from the FWW too far, UEs extended and trunk 45 degrees towards the ground. Gait Training Does the Patient Walk?: No and Walking Goal IS indicated Exercises Seated Therapy Exercises: Ankle pumps, Long arc quads, Hip flexion, Hamstring Curls, Hip abd/add Seated Reps: 20 Treatments Visit, Functional activity, Exercise Assessment Current Status: Fair Progress Patient tolerated treatment fair. Patient is able to perform bed mobility with mod A, however almost able to perform supine to sit with SBA and verbal cues. UE strength lacking significantly and is unable to fully use his UEs to come to a seated position. Patient performs sit to stand x 3 with mod/max A; attempted use of FWW x 2 however patient unable to stand fully erect. Keeps his hips flexed and pelvis away from the FWW too far, UEs extended and trunk 45 degrees towards the ground. Patient performed stand pivot transfer to the chair with max A and no Assistive device. Patient performs ther ex in chair as listed above. Patient in chair post treatment with all needs met, nursing notified, c all light in hand, and chair alarm activated. Tech in the room upon PT departure. PT Short Term Goals Short Term Goals Time Frame: Jan 05, 2021 PT Carpet Layer Helper Goals Assisted Goals PT Carpet Layer Helper Goals Time Frame: Jan 12, 2021 Roll Left & Right (QC): 4 Sit to Lying (QC): 4 Lying-Sitting on Side/Bed(QC): 4 Sit to Stand (QC): 4 Chair/Vgp-mr-Boqkd Xfer(QC): 4 Toilet Transfer (QC): 4 Does the Patient Walk: No and Walking Goal IS indicated Walk 10 feet (QC): 3 Walk 50ft with 2 Turns (QC): 3 PT Plan Treatment/Plan Treatment Plan: Continue Plan of Care Treatment Plan: Bed Mobility, Education, Functional Activity Jem, Functional Strength, Group Therapy, Gait, Safety, Therapeutic Exercise, Transfers Treatment Duration: Mar 02, 2021 Frequency: 6 times per week Estimated Hrs Per Day: .25 hour per day Safety Risks/Education Patient Education: Transfer Techniques, Safety Issues Teaching Recipient: Patient Teaching Methods: Demonstration, Discussion Response to Teaching: Reinforcement Needed Time/GCodes Time In: 0855 Time Out: 920 Total Billed Treatment Time: 25 Total Billed Treatment Visit, Rivka GILLIS JOHN A PT Dec 29, 2020 09:36
[2020-12-29] MEDS: LORazepam INJ 2 MG/ML (ATIVAN) VIAL IV PRN ×6 (10:37→22:40)
--- NOTE | 2020-12-29 11:21 | Pulmonary Progress Note ---
JULISSA GOMEZ MED STUDENT 12/29/20 1121: Subjective Date Seen by a Provider: Dec 29, 2020 Time Seen by a Provider: 08:00 Subjective/Events-last exam Patient disoriented x 4. Confused intermittently per nursing. Able to answer questions at times. Has been eating somewhat per nursing. Vitals stable per bedside monitor. No seizures reported. Review of Systems General: Other (unable to obtain currently) HEENT: Other (unable to obtain currently) Pulmonary: Other (unable to obtain currently) Cardiovascular: Other (unable to obtain currrently) Gastrointestinal: Other (unable to obtain currently) Genitourinary: Other (unable to obtain currently) Musculoskeletal: other (unable to obtain currently) Neurological: Other (unable to obtain currently) Sepsis Event Evaluation Height, Weight, BMI Height: '" Weight: lbs. oz. kg; 23.84 BMI Method: Exam Exam Patient acknowledged, consented, and participated in this virtual visit which was conducted using real time audio/video Vital Signs Date Time Temp Pulse Resp B/P (MAP) Pulse Ox O2 Delivery O2 Flow Rate FiO2 12/29/20 08:00 36.0 12/29/20 07:33 Room Air 12/29/20 07:00 70 12/29/20 06:00 80 10 162/103 (122) 98 Room Air 12/29/20 05:00 85 7 149/97 (122) 97 Room Air 12/29/20 04:04 36.1 12/29/20 04:00 86 14 151/103 (129) 94 Room Air 12/29/20 04:00 Room Air 12/29/20 03:00 76 146/120 (135) 82 Room Air 12/29/20 02:00 83 17 137/92 (122) 86 Room Air 12/29/20 01:00 84 11 146/98 (117) 96 Room Air 12/29/20 01:00 84 12/29/20 00:07 36.8 12/29/20 00:00 Room Air 12/29/20 00:00 97 13 152/114 (133) 95 Room Air 12/28/20 23:00 102 8 178/115 (136) 94 Room Air 12/28/20 22:00 98 13 184/133 (139) 94 Room Air 12/28/20 21:00 99 29 154/104 (127) 94 Room Air 12/28/20 20:15 37.0 12/28/20 20:00 122 17 185/119 (146) 95 Room Air 12/28/20 20:00 Room Air 12/28/20 19:04 110 184/99 (127) 95 Room Air 12/28/20 19:00 112 12/28/20 19:00 112 126/114 (116) 95 Room Air 12/28/20 18:00 112 23 158/120 (133) 94 Room Air 12/28/20 17:00 118 177/105 (129) 95 Room Air 12/28/20 16:00 101 16 95 Room Air 12/28/20 15:14 Room Air 12/28/20 15:00 120 50 158/100 (119) 94 Room Air 12/28/20 14:00 121 21 198/87 (124) 95 Room Air 12/28/20 13:55 151 12/28/20 13:00 126 39 160/115 (130) 95 Room Air 12/28/20 12:00 Room Air 12/28/20 12:00 131 25 184/110 (134) 95 Room Air I & O 12/29/20 07:00 Intake Total 2375 ml Output Total 700 ml Balance 1675 ml Height & Weight Height: '" Weight: lbs. oz. kg; 23.84 BMI Method: General Appearance: No Apparent Distress, WD/WN HEENT: PERRL/EOMI, Moist Mucous Membranes Neck: Non Tender, Supple; No JVD Respiratory: Chest Non Tender, Lungs Clear, Normal Breath Sounds, No Accessory Muscle Use, No Respiratory Distress; No Rhonci, No Stridor, No Wheezing Cardiovascular: Regular Rate, Rhythm, No Edema, No Murmur, Normal Peripheral Pulses, Tachycardia Capillary Refill: Less Than 3 Seconds Peripheral Pulses: 2+ Dorsalis Pedis (R), 2+ Left Dors-Pedis (L), 2+ Radial Pulses (R), 2+ Radial Pulses (L) Gastrointestinal: normal bowel sounds, non tender, soft; No distended, No guarding, No rebound, No tenderness Extremity: Normal Capillary Refill, Normal Inspection, Non Tender, No Calf Tenderness, No Pedal Edema Neurologic/Psychiatric: Alert, Disoriented (to place, time, and situation), Other (confusion. Mild hand tremor) Skin: Normal Color, Warm/Dry, Ecchymosis (scattered brusises on arms) Lymphatic: No Adenopathy Results Lab Laboratory Tests 12/28/20 05:30 12/29/20 04:00 Assessment/Plan Assessment/Plan Alcohol withdrawal -scheduled po ativan TID on 12-27 started -CIWA protocol -prn precedex dc'd Sinus tachycardia -improved -toprolol 50mg po BID -continue to monitor UTI -rocephin started 12-28 Elevated d dimer -d dimer 7.26 12-28 -lovnox ppx dose currently -consider CTA? Hypokalemia -resolved -continue to monitor Transaminitis -resolved -continue to monitor Low back pain S/P multiple recent falls -MRI lumbar spine shows multilevel degenerative disease -study limited due to motion artifact Alcohol use disorder -encourage alcohol cessation when detoxed DVT prophylaxis -lovenox PIV: R AC Anna: None, removed 12/27 ILEANA VELÁZQUEZ MD 12/29/20 1623: Subjective Subjective/Events-last exam still having hallucinations, still needs scheduled Ativan Assessment/Plan Assessment/Plan Critical Care: Critically Ill Patient Time spent with patient (mins): 25 Supervisory-Addendum Brief Verification & Attestation Participated in pt care: history, physical Personally performed: history Care discussed with: Medical Student Procedures: n/a Results interpretation: Verified all documentation [facility] [address] [id number] Progress Note - Med Stdnt PULM Patient Name: Dasha Watt Unit Number: [id number] Date of : 01/04/1953 Patient Status: Admitted Inpatient Attending Doctor: Melvina Rubio MD JULISSA GOMEZ MED STUDENT 12/29/20 0827: Subjective Date Seen by a Provider: Dec 29, 2020 Time Seen by a Provider: 06:45 Subjective/Events-last exam Patient awake and alert in room. States is having back pain and can't get comfortable. Becomes anxious and tearful stating the nurses are displeased with taking care of her. Vitals stable per monitor. Remains on cardizem drip at 20mg/hr. Review of Systems General: No Chills, No Night Sweats HEENT: No Head Aches, No Visual Changes Pulmonary: No Dyspnea, No Cough Cardiovascular: No: Chest Pain, Palpitations Gastrointestinal: Nausea; No: Vomiting, Abdominal Pain Genitourinary: No Dysuria, No Frequency; Other (hurst catheter) Musculoskeletal: back pain; No: neck pain Neurological: No: Weakness, Numbness Sepsis Event Evaluation Height, Weight, BMI Height: 5'5.00" Weight: 276lbs. oz. 125.069205ta; 43.29 BMI Method:Stated Focused Exam Lactate Level 12/26/20 21:45: Lactic Acid Level 1.54 Exam Exam Patient acknowledged, consented, and participated in this virtual visit which was conducted using real time audio/video Vital Signs Date Time Temp Pulse Resp B/P (MAP) Pulse Ox O2 Delivery O2 Flow Rate FiO2 12/29/20 06:00 130 21 131/91 98 Nasal Cannula 2.00 12/29/20 05:48 99 12/29/20 05:00 112 33 144/98 99 Nasal Cannula 2.00 12/29/20 04:15 98 Nasal Cannula 2.00 12/29/20 04:00 129 35 139/98 100 Nasal Cannula 2.00 12/29/20 03:00 87 13 103/89 91 Nasal Cannula 2.00 12/29/20 02:51 36.5 Nasal Cannula 2.00 12/29/20 02:15 111 15 137/81 91 Nasal Cannula 2.00 12/29/20 02:00 92 12/29/20 01:00 108 12/29/20 01:00 108 10 123/70 95 Nasal Cannula 2.00 12/29/20 00:00 126 117/86 99 Nasal Cannula 2.00 12/28/20 23:49 36.7 Nasal Cannula 2.00 12/28/20 23:48 99 Nasal Cannula 2.00 12/28/20 23:00 126 18 128/91 99 Nasal Cannula 2.00 12/28/20 22:10 118 12/28/20 22:00 125 29 144/79 98 Nasal Cannula 2.00 12/28/20 21:00 125 32 126/80 97 Nasal Cannula 2.00 12/28/20 20:32 126 12/28/20 20:00 97 Nasal Cannula 2.00 12/28/20 20:00 128 132/90 97 Nasal Cannula 2.00 12/28/20 19:15 128 13 124/78 97 Nasal Cannula 2.00 12/28/20 19:00 128 12/28/20 19:00 36.6 Nasal Cannula 2.00 12/28/20 18:00 125 6 132/119 95 Nasal Cannula 2.00 12/28/20 17:00 133 36 173/103 98 Nasal Cannula 2.00 12/28/20 16:30 35.9 12/28/20 16:00 130 26 100/84 97 Nasal Cannula 2.00 12/28/20 16:00 98 Nasal Cannula 2.00 12/28/20 15:00 130 31 116/81 98 Nasal Cannula 2.00 12/28/20 14:00 128 5 125/83 100 Nasal Cannula 2.00 12/28/20 14:00 132 12/28/20 13:36 128 12/28/20 13:00 131 13 157/87 100 Nasal Cannula 2.00 12/28/20 12:30 36.3 12/28/20 12:00 98 Nasal Cannula 2.00 12/28/20 12:00 133 13 120/63 97 Nasal Cannula 2.00 12/28/20 11:00 133 45 129/70 96 Nasal Cannula 2.00 12/28/20 10:10 125 130/85 95 Nasal Cannula 2.00 12/28/20 10:00 130 12/28/20 09:00 128 118/74 96 Nasal Cannula 2.00 I & O 12/29/20 07:00 Intake Total 2505 ml Output Total 2475 ml Balance 30 ml Height & Weight Height: 5'5.00" Weight: 276lbs. oz. 125.832238qd; 43.29 BMI Method:Stated General Appearance: No Apparent Distress, Chronically ill, Obese HEENT: PERRL/EOMI, Moist Mucous Membranes; No Scleral Icterus (L), No Scleral Icterus (R) Neck: Non Tender, Supple, Other ([facility] CVC dressing c/d/i) Respiratory: Lungs Clear, Normal Breath Sounds, No Accessory Muscle Use, No Respiratory Distress Cardiovascular: No Murmur, Irregularly Irregular, Tachycardia Capillary Refill: Less Than 3 Seconds Peripheral Pulses: 2+ Dorsalis Pedis (R), 2+ Left Dors-Pedis (L), 2+ Radial Pulses (R), 2+ Radial Pulses (L) Gastrointestinal: normal bowel sounds, non tender, soft; No distended, No guarding, No rebound, No tenderness Extremity: Normal Capillary Refill, Non Tender, No Calf Tenderness, No Pedal Edema Neurologic/Psychiatric: Alert, Oriented x3, Other (tearful) Skin: Normal Color, Warm/Dry Lymphatic: No Adenopathy Results Lab Laboratory Tests 12/28/20 02:50 12/29/20 02:35 Assessment/Plan Assessment/Plan Septic shock due to UTI -prelim blood culture staph epidermidis and hominis -prelim urine culture E coli and proteus -Levo off since 12-27. -cefepime and vancomycin dc'd today -meropenem added today -procalcitonin 0.59 12-27 -covid pcr negative S/P FIDENCIO/Cardioversion today -currently in NSR -cardizem gtt dc'd ERICK -improved -creatinine 0.69 now -continue to monitor A-fib with RVR -resolved, s/p cardioversion 12-29 -anticoagulated with lovenox 120mg BID -amiodarone -digoxin NSTEMI -troponin I 3rd set up to 0.077 -continue to monitor Seizure disorder -continue keppra HTN H/O GIB H/O cardiac arrest 07/2019 H/O polysubstance abuse -uds positive for oxycodone and benzo's Obesity GI ppx -protonix RIJ CVC: please discontinue today [place]: ? discontinue today ILEANA VELÁZQUEZ MD 12/29/20 1614: Assessment/Plan Assessment/Plan agree with medical students note, I rounded via camera, physical based on RN and medical student's report Agree with treatment plan Critical Care: Critically Ill Patient Time spent with patient (mins): 25 Supervisory-Addendum Brief Verification & Attestation Participated in pt care: history, physical Personally performed: history Care discussed with: Medical Student, SW[employer]MING [employer] MAINTENANCE SUPERVISOR Procedures: n/a Results interpretation: Verified all documentation I rounded with RN and medical student thru video, Agree with treatment plan, P hysical findings are those reported to me by RN and medical student Would continue sedation as needed, thiamine, folate JULISSA GOMEZ MED STUDENT Dec 29, 2020 08:27 ILEANA VELÁZQUEZ MD Dec 29, 2020 16:14 Addendum: ILEANA VELÁZQUEZ MD on 12/29/20 @ 16:15 JULISSA GOMEZ MED STUDENT Dec 29, 2020 11:21 ILEANA VELÁZQUEZ MD Dec 29, 2020 16:23
[2020-12-29] MEDS ORDERED: FOLIC ACID 1 MG TAB PO ONE (13:30)
[2020-12-29] MEDS: PYRIDOXINE (VITAMIN B-6) 50 MG TABLET PO SCH (13:32)
[2020-12-29] MEDS: cefTRIAXone 1,000 MG in WATER (STERILE) FOR INJECTION 10 ML IV SCH (13:33)
--- NOTE | 2020-12-29 14:38 | Progress Note - Hospitalist ---
Subjective HPI/CC On Admission Date Seen by Provider: Dec 29, 2020 Time Seen by Provider: 14:36 Mr. Salinas is a 50-year-old white male presented to the office at his 's insistence who accompanied him due to a recent history of falls. He reports his first fall on November 14 at which time he injured his low back. Following that ti me he has noted numbness in his legs and has had for 5 subsequent falls none from height. He denied headache but reported generalized weakness. He admitted to longstanding heavy alcohol consumption for which he reports he drinks Granda light 3-4 sixpacks per day. It has been 7 years since his last office visit and he only came in because of his 's insistence. Ports his appetite has been poor and he thinks he is probably lost 20 to 30 pounds by our office scales compared to 7 years ago he is down 40 pounds. He reports some nausea denies abdominal pain denies orange urine and he does not recall the last period of time he left without heavy alcohol consumption. [place] the mall and has done so for many years is with no children denies DUIs and has had no previous hospital admission and was taking no medication [id number] also denying illicit drug use. He reports onset of a tremor for at least the past several months worse with action less so at rest and noting that when he drinks his tremor goes away he denies knowledge of any family history for tremor essential or Parkinson's disease. He denies night sweats chills fever orthopnea PND or pedal edema and denies abdominal distention is noted no melena or bright red blood per rectum. Subjective/Events-last exam Patient more oriented today. Knows he is in [place] and that it is 2020. Was unsure of name of building he was in. Thought [place]ron was president so slowing improving. Aide at bedside assisting with feeding breakfast. Objective Exam Vital Signs Vital Signs Date Time Temp Pulse Resp B/P (MAP) Pulse Ox O2 Delivery O2 Flow Rate FiO2 12/29/20 13:00 99 12/29/20 12:00 Room Air 12/29/20 12:00 36.8 12/29/20 11:00 17 120/77 (91) 99 12/28/20 14:00 Capillary Refill : Less Than 3 Seconds General Appearance: No Apparent Distress, Chronically ill Respiratory: Lungs Clear, No Respiratory Distress Cardiovascular: Regular Rate, Rhythm, No Murmur Neurologic/Psychiatric: Alert, Oriented x3 Results/Procedures Lab Laboratory Tests 12/29/20 04:00 Patient resulted labs reviewed. Imaging: Reviewed Imaging Report Assessment/Plan Assessment and Plan Assess & Plan/Chief Complaint Alcohol withdrawal with perceptual disturbance Alcohol dependence Alcohol myopathy Hypokalemia Obstructive sleep apnea CIWA protocol Continue Ativan as needed Precedex off s/p phenobarbital TeleICU following PT/OT SW consulted MRI concerning for possible normal pressure hydrocephalus Consider further evaluation once through acute withdrawal and able to tolerate procedure tachycardia Developed profound sinus tachycardia yesterday Cultures ordered and urine showed possible UTI Start on Rocephin Cardiology consulted, appreciate recs Continue metoprolol DVT prophylaxis: Lovenox Alcoholic hepatitis, resolved Hyponatremia, resolved STACI MCNAMARA MD Dec 29, 2020 14:38
[2020-12-29] MEDS: ENOXAPARIN 40 MG/0.4 ML (LOVENOX) SYR SC SCH (16:24)
[2020-12-29] MEDS: LORazepam 1 MG (ATIVAN) TAB PO PRN (23:30)
[2020-12-30] VITALS (16 sets, daily range): BP systolic 109–160; BP diastolic 66–144
[2020-12-30] MEDS: ENOXAPARIN 80 MG/0.8 ML (LOVENOX) SYR SC SCH ×2 (04:54→14:56)
[2020-12-30 05:09] LABS: BASOPHILS # (AUTO) 0.1 10^3/uL (0.0-0.1); BASOPHILS % (AUTO) 2 % (0-10); EOSINOPHILS # (AUTO) 0.1 10^3/uL (0.0-0.3); EOSINOPHILS % (AUTO) 2 % (0-10); HEMATOCRIT 40 % (40-54); HEMOGLOBIN 13.6 g/dL (13.3-17.7); LYMPHOCYTES # (AUTO) 1.9 10^3/uL (1.0-4.0); LYMPHOCYTES % (AUTO) 25 % (12-44); MEAN CORPUSCULAR HEMOGLOBIN 33 pg (25-34); MEAN CORPUSCULAR HGB CONC 34 g/dL (32-36); MEAN CORPUSCULAR VOLUME 98 fL (80-99); MEAN PLATELET VOLUME 10.4 fL (9.0-12.2); MONOCYTES % (AUTO) 14 % (0-12); NEUTROPHILS # (AUTO) 4.4 10^3/uL (1.8-7.8); NEUTROPHILS % (AUTO) 58 % (42-75); PLATELET COUNT 288 10^3/uL (130-400); WHITE BLOOD COUNT 7.6 10^3/uL (4.3-11.0)
[2020-12-30 05:32] LABS: ALBUMIN 3.4 GM/DL (3.2-4.5); POTASSIUM 3.9 MMOL/L (3.6-5.0)
[2020-12-30 05:33] LABS: CALCIUM 9.2 MG/DL (8.5-10.1)
[2020-12-30 05:35] LABS: TOTAL PROTEIN 6.4 GM/DL (6.4-8.2)
[2020-12-30 05:36] LABS: BILIRUBIN,TOTAL 0.4 MG/DL (0.1-1.0)
[2020-12-30 05:38] LABS: CREATININE SERUM 0.69 MG/DL (0.60-1.30); PHOSPHORUS 4.2 MG/DL (2.3-4.7)
[2020-12-30 05:41] LABS: MAGNESIUM 2.1 MG/DL (1.6-2.4)
[2020-12-30] MEDS: LORazepam 1 MG (ATIVAN) TAB PO PRN (07:02)
--- NOTE | 2020-12-30 07:44 | Cardiology Progress Note ---
Subjective Date Seen by Provider: Dec 30, 2020 Time Seen by Provider: 08:15 Subjective/Events-last exam Pt was awake and alert this morning. Still is confused. He is still not oriented to time or place. Was able to correctly state that Ethan Rodney is the current president. When asked patient said he was not having any problems. Review of Systems General: No Chills; Other (Confused) HEENT: No Head Aches, No Visual Changes Pulmonary: No Dyspnea, No Cough Cardiovascular: No: Chest Pain, Palpitations Objective-Cardiology Exam Last Set of Vital Signs Vital Signs 12/28/20 12/30/20 12/30/20 07:00 06:47 07:49 Temp 36.8 Pulse 96 Resp 19 B/P (MAP) 143/91 (108) Pulse Ox 97 O2 Delivery Room Air O2 Flow Rate 3.00 I&O Intake and Output 12/29/20 23:59 Intake Total 1000 ml Output Total 400 ml Balance 600 ml Intake Oral 1000 ml Output Urine Total 400 ml # Voids 6 # Urine Diapers 2 General: Alert, No Acute Distress, Other (not oriented to time or place. ) HEENT: Atraumatic, PERRLA, EOMI Neck: Supple, No JVD, No LAD Lungs: Clear to Auscultation, Normal Air Movement Heart: Regular Rate, Normal S1, Normal S2, No Murmurs Abdomen: Soft, No Tenderness Extremities: No Cyanosis, No Edema Skin: No Rashes, No Significant Lesion Neuro: Normal Speech, Other (Lawn Caretaker strength and LE strength 5/5) Psych/Mental Status: Mood NL Results Lab Laboratory Tests 12/30/20 04:55 A/P-Cardiology Admission Diagnosis Sinus tachycardia Alcohol withdrawal UTI Confusion Assessment/Plan Sinus tachycardia, better at this time, tolerating Lopressor 50 mg twice daily. Continue to monitor 2D echo done on December 28, 2020 showed EF 55-65 percent, left atrium mildly dilated, pulmonary artery pressure of 25 mmHg. No signs of pulmonary hypertension or strain pattern or heart failure. Alcohol withdrawal. Taking ativan 2mg TID PO. On CIWA protocol. PRN precedex for agitation or restlessness. Started on folic acid and vitamin B-6 Confusion, delirium. Probably secondary to alcohol withdrawal. Managed by primary care team UTI, receiving antibiotic, managed by primary care team Alcohol use disorder. recommend discontinuing alcohol use when detoxed. Transaminitis. resolved, continue to monitor DVT prophylaxis. Lovenox was increased to 70mg. D-dimer on December 28 was 7.26 Supervisory-Addendum Brief Verification & Attestation Participated in pt care: history, MDM, physical Personally performed: exam, history, MDM, supervision of care Care discussed with: Medical Student Procedures: n/a Results interpretation: Verified all documentation Verification and Attestation of Medical Student E/M Service A medical student performed and documented this service in my presence. I reviewed and verified all information documented by the medical student and made modifications to such information, when appropriate. I personally performed the physical exam and medical decision making. Miguel Blanco, Dec 30, 2020,08:16 SALVATORE VELEZ Dec 30, 2020 07:44 MIGUEL BLANCO MD Dec 30, 2020 08:17
[2020-12-30] MEDS: LORazepam 1 MG (ATIVAN) TAB PO SCH ×3 (08:28→19:56)
[2020-12-30] MEDS: FOLIC ACID 1 MG TAB PO SCH (08:28)
[2020-12-30] MEDS: PYRIDOXINE (VITAMIN B-6) 50 MG TABLET PO SCH (08:28)
[2020-12-30] MEDS: meTOprolol TARTRATE 50 MG (LOPRESSOR) TAB PO SCH ×2 (08:29→19:56)
[2020-12-30] MEDS: THIAMINE 100 MG (VITAMIN B-1) TAB PO SCH (08:29)
--- NOTE | 2020-12-30 09:07 | Progress Note - Hospitalist ---
Subjective HPI/CC On Admission Date Seen by Provider: Dec 30, 2020 Time Seen by Provider: 09:02 Mr. Salinas is a 50-year-old white male presented to the office at his 's insistence who accompanied him due to a recent history of falls. He reports his first fall on November 14 at which time he injured his low back. Following that ti me he has noted numbness in his legs and has had for 5 subsequent falls none from height. He denied headache but reported generalized weakness. He admitted to longstanding heavy alcohol consumption for which he reports he drinks Granda light 3-4 sixpacks per day. It has been 7 years since his last office visit and he only came in because of his 's insistence. Ports his appetite has been poor and he thinks he is probably lost 20 to 30 pounds by our office scales compared to 7 years ago he is down 40 pounds. He reports some nausea denies abdominal pain denies orange urine and he does not recall the last period of time he left without heavy alcohol consumption. 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 He reports onset of a tremor for at least the past several months worse with action less so at rest and noting that when he drinks his tremor goes away he denies knowledge of any family history for tremor essential or Parkinson's disease. He denies night sweats chills fever orthopnea PND or pedal edema and denies abdominal distention is noted no melena or bright red blood per rectum. Subjective/Events-last exam Pt reports doing well and would like to go home. Acknowledges that he is not strong enough yet though. He is oriented to person and city but situation. He says 69 when asked the year. I attempted to call his to discuss plan but there was no answer at either number and no identifying information on voicemail. Objective Exam Vital Signs Vital Signs Date Time Temp Pulse Resp B/P (MAP) Pulse Ox O2 Delivery O2 Flow Rate FiO2 12/30/20 07:49 36.8 12/30/20 06:47 96 19 143/91 (108) 97 Room Air 12/28/20 14:00 Capillary Refill : Less Than 3 Seconds General Appearance: No Apparent Distress, WD/WN Respiratory: Lungs Clear, No Respiratory Distress Cardiovascular: Regular Rate, Rhythm, No Murmur Neurologic/Psychiatric: Alert, Other (oriented to person and place only) Results/Procedures Lab Laboratory Tests 12/30/20 04:55 Patient resulted labs reviewed. Imaging: Reviewed Imaging Report Assessment/Plan Assessment and Plan Assess & Plan/Chief Complaint Alcohol withdrawal with perceptual disturbance Alcohol dependence Alcohol myopathy Hypokalemia Obstructive sleep apnea CIWA protocol Continue Ativan as needed with scheduled ativan s/p phenobarbital TeleICU following PT/OT SW consulted MRI concerning for possible normal pressure hydrocephalus Consider further evaluation once through acute withdrawal and able to tolerate procedure tachycardia Improved Continue on Rocephin Cardiology consulted, appreciate recs Continue metoprolol DVT prophylaxis: Lovenox Alcoholic hepatitis, resolved Hyponatremia, resolved Critical Care Critically Ill Patient STACI MCNAMARA MD Dec 30, 2020 09:07
--- NOTE | 2020-12-30 10:06 | Physical Therapy Daily Note ---
PT Daily Note-Current Subjective Patient more alert on this date. Patient states, "My shaking started 3 yrs ago. I have had a bunch of falls because I can't walk. I think something is wrong with my nerves." Mental Status Patient Orientation: Person, Situation Transfers SCALE: Activities may be completed with or without assistive devices. 9-Pvccrmusny-miqroau completes the activity by him/herself with no assistance from a helper. 5-Set-up or Clean-up Assistance-helper sets up or cleans up; patient completes activity. [place] assists only prior to or following the activity. 4-Supervision or Touching Assistance-helper provides verbal cues and/or touching/steadying and/or contact guard assistance as patient completes activity. Assistance may be provided throughout the activity or intermittently. 3-Partial/Moderate Assistance-helper does LESS THAN HALF the effort. [place] lifts, holds or supports trunk or limbs, but provides less than half the effort. 2-Substantial/Maximal Assistance-helper does MORE THAN HALF the effort. [place] lifts or holds trunk or limbs and provides more than half the effort. 2-Dovvlneyc-nydcih does ALL the effort. Patient does none of the effort to complete the activity. Or, the assistance of 2 or more helpers is required for the patient to complete the activity. If activity was not attempted, code reason: 7-Patient Refused. 9-Not Applicable-not attempted and the patient did not perform the activity before the current illness, exacerbation or injury. 10-Not Attempted due to Environmental Limitations-(lack of equipment, weather restraints, etc.). 88-Not Attempted due to Medical Conditions or Safety Concerns. Lying to Sitting/Side of Bed(Q: 4 (SBA) Sit to Stand (QC): 2 (x 5 sets to FWW with patient unable to stand erect due to increase in shaking per patient report) Chair/Wdx-pm-Mwphi Xfer(QC): 1 (x 2 with patient unable to motor plan to advance either LE requiring dependent assist x 2 to attain task) Gait Training Does the Patient Walk?: No and Walking Goal IS indicated Exercises Seated Therapy Exercises: Long arc quads Seated Reps: 12 (AAROM) Assessment Current Status: Poor Progress Patient up in recliner with needs met. Patient continues to have difficulty with all LE motor planning with inability to advance LE's with gait training. Patient is unable to stand erect due to increase in tremors/shaking. Increase activity as tolerated by patient. PT consulted with physician on POC due to patient not progressing with gross motor skills. PT Short Term Goals Short Term Goals Time Frame: Jan 05, 2021 PT Detention Goals Social Sciences Lecturer Goals PT Social Sciences Lecturer Goals Time Frame: Jan 12, 2021 Roll Left & Right (QC): 4 Sit to Lying (QC): 4 Lying-Sitting on Side/Bed(QC): 4 Sit to Stand (QC): 4 Chair/Cbt-tr-Pxnai Xfer(QC): 4 Toilet Transfer (QC): 4 Does the Patient Walk: No and Walking Goal IS indicated Walk 10 feet (QC): 3 Walk 50ft with 2 Turns (QC): 3 PT Plan Treatment/Plan Treatment Plan: Continue Plan of Care Treatment Plan: Bed Mobility, Education, Functional Activity Jem, Functional Strength, Group Therapy, Gait, Safety, Therapeutic Exercise, Transfers Treatment Duration: Mar 02, 2021 Frequency: 6 times per week Estimated Hrs Per Day: .25 hour per day Time/GCodes Time In: 927 Time Out: 942 Total Billed Treatment Time: 15 Total Billed Treatment 1 visit FA 15 min ALIZE GALDAMEZ PT Dec 30, 2020 10:06
[2020-12-30] MEDS: LORazepam INJ 2 MG/ML (ATIVAN) VIAL IV PRN ×6 (11:37→20:57)
[2020-12-30] MEDS: cefTRIAXone 1,000 MG in WATER (STERILE) FOR INJECTION 10 ML IV SCH (13:21)
[2020-12-31] VITALS (16 sets, daily range): BP systolic 116–160; BP diastolic 76–111
[2020-12-31] MEDS: ENOXAPARIN 80 MG/0.8 ML (LOVENOX) SYR SC SCH ×2 (04:43→17:21)
[2020-12-31 05:11] LABS: BASOPHILS # (AUTO) 0.1 10^3/uL (0.0-0.1); BASOPHILS % (AUTO) 2 % (0-10); EOSINOPHILS # (AUTO) 0.1 10^3/uL (0.0-0.3); EOSINOPHILS % (AUTO) 2 % (0-10); HEMATOCRIT 40 % (40-54); HEMOGLOBIN 13.6 g/dL (13.3-17.7); LYMPHOCYTES # (AUTO) 1.8 10^3/uL (1.0-4.0); LYMPHOCYTES % (AUTO) 25 % (12-44); MEAN CORPUSCULAR HEMOGLOBIN 33 pg (25-34); MEAN CORPUSCULAR HGB CONC 34 g/dL (32-36); MEAN CORPUSCULAR VOLUME 98 fL (80-99); MONOCYTES # (AUTO) 0.8 10^3/uL (0.0-1.0); MONOCYTES % (AUTO) 11 % (0-12); NEUTROPHILS # (AUTO) 4.3 10^3/uL (1.8-7.8); NEUTROPHILS % (AUTO) 59 % (42-75); PLATELET COUNT 316 10^3/uL (130-400); WHITE BLOOD COUNT 7.3 10^3/uL (4.3-11.0)
[2020-12-31 05:24] LABS: ALBUMIN 3.4 GM/DL (3.2-4.5)
[2020-12-31 05:25] LABS: CALCIUM 9.2 MG/DL (8.5-10.1)
[2020-12-31 05:26] LABS: TOTAL PROTEIN 6.5 GM/DL (6.4-8.2)
[2020-12-31 05:28] LABS: BILIRUBIN,TOTAL 0.4 MG/DL (0.1-1.0)
[2020-12-31 05:30] LABS: CREATININE SERUM 0.73 MG/DL (0.60-1.30); PHOSPHORUS 3.7 MG/DL (2.3-4.7)
[2020-12-31 05:33] LABS: MAGNESIUM 2.4 MG/DL (1.6-2.4)
--- NOTE | 2020-12-31 07:53 | Cardiology Progress Note ---
Subjective Date Seen by Provider: Dec 31, 2020 Time Seen by Provider: 12:45 Subjective/Events-last exam Pt is confused this morning. Does not know where he is, what year it is, or who the current president is. He is now wearing gloves because he was trying to pull out his IV last night. Did say he was not having any CP, palpitations, or SOB. Review of Systems General: No Chills, No Night Sweats, No Fatigue, No Malaise, No Appetite, No Other HEENT: No Head Aches, No Visual Changes, No Eye Pain, No Ear Pain, No Dysphasia, No Sinus Congestion, No Post Nasal Drip, No Sore Throat, No Other Pulmonary: No Dyspnea, No Cough, No Pleuritic Chest Pain, No Other Cardiovascular: No: Chest Pain, Palpitations, Orthopnea, Paroxysmal Noc. Dyspnea, Edema, Lt Headedness, Other Neurological: Confusion Objective-Cardiology Exam Last Set of Vital Signs Vital Signs 12/31/20 12:25 Temp 36.4 Pulse 95 Resp 20 B/P (MAP) 135/111 (119) Pulse Ox 97 O2 Delivery Room Air I&O Intake and Output 12/31/20 00:00 Intake Total 2320 ml Output Total 400 ml Balance 1920 ml Intake Oral 2320 ml Output Urine Total 400 ml # Voids 1 # Urine Diapers 8 General: Alert, Cooperative, No Acute Distress, Other (not oriented to time or place. ) HEENT: Atraumatic, PERRLA, EOMI Neck: Supple, No JVD, No LAD Lungs: Clear to Auscultation, Normal Air Movement Heart: Regular Rate, Normal S1, Normal S2, No Murmurs Abdomen: Normal Bowel Sounds, Soft, No Tenderness Extremities: No Cyanosis, No Edema Skin: No Rashes, No Significant Lesion Neuro: Normal Speech, Other Psych/Mental Status: Mood NL, Other (Confused) Results Lab Laboratory Tests 12/31/20 05:00 A/P-Cardiology Admission Diagnosis Sinus tachycardia Alcohol withdrawal UTI Confusion Assessment/Plan Sinus tachycardia, resolved, maintained on Lopressor 50 mg twice daily. Continue to monitor 2D echo done on December 28, 2020 showed EF 55-65 percent, left atrium mildly dilated, pulmonary artery pressure of 25 mmHg. No signs of pulmonary hypertension or strain pattern or heart failure. Alcohol withdrawal. Taking ativan 2mg TID PO. On CIWA protocol. PRN precedex for agitation or restlessness. Receiving folic acid, thiamine, and vitamin B-6 Confusion, delirium. Probably secondary to alcohol withdrawal. Managed by primary care team UTI, receiving antibiotic, managed by primary care team Alcohol use disorder. recommend discontinuing alcohol use when detoxed. Transaminitis. resolved, continue to monitor DVT prophylaxis. Lovenox was increased to 70mg. D-dimer on December [address] Mathews is covering for this weekend Supervisory-Addendum Brief Verification & Attestation Participated in pt care: history, MDM, physical Personally performed: exam, history, MDM, supervision of care Care discussed with: Medical Student Procedures: n/a Results interpretation: Verified all documentation Verification and Attestation of Medical Student E/M Service A medical student performed and documented this service in my presence. I reviewed and verified all information documented by the medical student and made modifications to such information, when appropriate. I personally performed the physical exam and medical decision making. Miguel Blanco, Dec 31, 2020,12:46 SALVATORE VELEZ Dec 31, 2020 07:53 MIGUEL BLANCO MD Dec 31, 2020 12:47
[2020-12-31] MEDS: FOLIC ACID 1 MG TAB PO SCH (08:30)
[2020-12-31] MEDS: THIAMINE 100 MG (VITAMIN B-1) TAB PO SCH (08:30)
[2020-12-31] MEDS: LORazepam 1 MG (ATIVAN) TAB PO SCH ×3 (08:30→21:00)
[2020-12-31] MEDS: PYRIDOXINE (VITAMIN B-6) 50 MG TABLET PO SCH (08:30)
[2020-12-31] MEDS: meTOprolol TARTRATE 50 MG (LOPRESSOR) TAB PO SCH ×2 (08:30→21:00)
--- NOTE | 2020-12-31 09:04 | Progress Note - Hospitalist ---
Subjective HPI/CC On Admission Date Seen by Provider: Dec 31, 2020 Time Seen by Provider: 08:57 Mr. Salinas is a 50-year-old white male presented to the office at his 's insistence who accompanied him due to a recent history of falls. He reports his first fall on November 14 at which time he injured his low back. Following that ti me he has noted numbness in his legs and has had for 5 subsequent falls none from height. He denied headache but reported generalized weakness. He admitted to longstanding heavy alcohol consumption for which he reports he drinks Granda light 3-4 sixpacks per day. It has been 7 years since his last office visit and he only came in because of his 's insistence. Ports his appetite has been poor and he thinks he is probably lost 20 to 30 pounds by our office scales compared to 7 years ago he is down 40 pounds. He reports some nausea denies abdominal pain denies orange urine and he does not recall the last period of time he left without heavy alcohol consumption. 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 He reports onset of a tremor for at least the past several months worse with action less so at rest and noting that when he drinks his tremor goes away he denies knowledge of any family history for tremor essential or Parkinson's disease. He denies night sweats chills fever orthopnea PND or pedal edema and denies abdominal distention is noted no melena or bright red blood per rectum. Subjective/Events-last exam Pt repors feeling well today. Knows his name and that he is in [place] and that that is in [facility]. Otherwise did not know the year. Seemed to understand he was in the hospital but could not name it. Objective Exam Vital Signs Vital Signs Date Time Temp Pulse Resp B/P (MAP) Pulse Ox O2 Delivery O2 Flow Rate FiO2 12/31/20 08:33 Room Air 12/31/20 08:00 36.0 85 14 160/88 (112) 96 12/31/20 04:00 6.00 Capillary Refill : Less Than 3 Seconds General Appearance: No Apparent Distress, WD/WN Respiratory: Lungs Clear, No Respiratory Distress Cardiovascular: Regular Rate, Rhythm, No Murmur Neurologic/Psychiatric: Alert, Oriented x3 Results/Procedures Lab Laboratory Tests 12/31/20 05:00 Patient resulted labs reviewed. Imaging: Reviewed Imaging Report Assessment/Plan Assessment and Plan Assess & Plan/Chief Complaint Alcohol withdrawal with perceptual disturbance Alcohol dependence Alcohol myopathy Hypokalemia Obstructive sleep apnea CIWA protocol Continue Ativan as needed with scheduled ativan s/p phenobarbital TeleICU following PT/OT SW consulted MRI concerning for possible normal pressure hydrocephalus Consider further evaluation once through acute withdrawal and able to tolerate procedure I attempted to meet with patient yesterday and answer any questions she stated she was waiting to hear from Dr Meek Discussed with his PCP Dr Meek yesterday who had amber conversation with patient's yesterday regarding assisted care, consider MRI of cervical and thoracic spine when able to cooperate better hopefully next week tachycardia- resolved Improved Continue on Rocephin for 5 days Cardiology consulted, appreciate recs Continue metoprolol DVT prophylaxis: Lovenox Alcoholic hepatitis, resolved Hyponatremia, resolved Critical Care Critically Ill Patient STACI MCNAMARA MD Dec 31, 2020 09:04
--- NOTE | 2020-12-31 10:17 | Pulmonary Progress Note ---
MILIND NUNEZ MED STUDENT 12/31/20 1017: Subjective Date Seen by a Provider: Dec 31, 2020 Time Seen by a Provider: 06:30 Subjective/Events-last exam Ethan states he is not in any pain. He says he has not seen any snakes recently and does not think he has hallucinated. He does not feel anxious. Sepsis Event Evaluation Height, Weight, BMI Height: '" Weight: lbs. oz. kg; 23.84 BMI Method: Exam Exam Patient acknowledged, consented, and participated in this virtual visit which was conducted using real time audio/video Vital Signs Date Time Temp Pulse Resp B/P (MAP) Pulse Ox O2 Delivery O2 Flow Rate FiO2 12/31/20 09:50 35.8 12/31/20 08:33 Room Air 12/31/20 08:00 36.0 85 14 160/88 (112) 96 Room Air 12/31/20 07:00 91 12/31/20 07:00 88 15 152/95 (114) 97 Room Air 12/31/20 06:00 84 12 123/93 (103) 96 Room Air 12/31/20 05:00 86 17 128/95 (106) 93 Room Air 12/31/20 04:46 Room Air 12/31/20 04:00 67 18 133/81 (98) 99 Nasal Cannula 6.00 12/31/20 04:00 Nasal Cannula 6.00 12/31/20 03:00 69 18 133/94 (107) 100 Nasal Cannula 6.00 12/31/20 02:00 70 12 142/95 (111) 99 Nasal Cannula 6.00 12/31/20 01:14 Nasal Cannula 6.00 12/31/20 01:13 Nasal Cannula 4.00 12/31/20 01:00 75 12 141/88 (105) 99 Room Air 12/31/20 01:00 75 12/31/20 00:00 76 16 132/98 (109) 99 Room Air 12/31/20 00:00 Room Air 12/30/20 23:00 86 12 148/91 (110) 96 Room Air 12/30/20 22:00 88 14 153/94 (113) 96 Room Air 12/30/20 21:00 88 13 149/101 (117) 96 Room Air 12/30/20 20:00 Room Air 12/30/20 20:00 113 13 160/144 (149) 97 Room Air 12/30/20 20:00 Room Air 12/30/20 19:00 78 13 134/100 (111) 98 Room Air 12/30/20 19:00 78 12/30/20 18:25 97 Nasal Cannula 3.00 12/30/20 16:00 118 16 131/90 (104) 96 Nasal Cannula 3.00 12/30/20 15:56 Room Air 12/30/20 15:39 36.5 12/30/20 14:33 37.6 12/30/20 12:59 101 12/30/20 12:36 36.6 12/30/20 12:26 Room Air 12/30/20 12:00 80 10 135/80 (98) 98 Nasal Cannula 3.00 I & O 12/31/20 07:00 Intake Total 2070 ml Output Total 600 ml Balance 1470 ml Height & Weight Height: '" Weight: lbs. oz. kg; 23.84 BMI Method: General Appearance: No Apparent Distress, WD/WN HEENT: PERRL/EOMI, Moist Mucous Membranes Neck: Non Tender, Supple; No JVD; Other (no nuchal rigidity) Respiratory: Lungs Clear, No Respiratory Distress; No Crackles, No Wheezing Cardiovascular: Regular Rate, Rhythm, No Murmur Capillary Refill: Less Than 3 Seconds Peripheral Pulses: 2+ Dorsalis Pedis (R), 2+ Left Dors-Pedis (L), 2+ Radial Pulses (R), 2+ Radial Pulses (L) Gastrointestinal: normal bowel sounds, non tender, soft; No distended, No guarding, No rebound Extremity: Normal Capillary Refill, Normal Inspection, Non Tender, No Calf Tenderness, No Pedal Edema Neurologic/Psychiatric: Alert, Disoriented (confused with respect to place and time. Unable to follow conversation for long. No significant change in mental state compared to yesterday.) Skin: Normal Color, Warm/Dry, Ecchymosis (scattered brusises on arms) Lymphatic: No Adenopathy Results Lab Laboratory Tests 12/30/20 04:55 12/31/20 05:00 Assessment/Plan Assessment/Plan alcohol withdrawal DTs and alcoholic hallucinosis -on [facility] protocol -receiving vitamins B1, B9, B6 Persistent altered mental status -MRI 12/21 possible NPH -social work looking into long-term management options -no clinical signs of infection. urine culture: coagulase negative staph 12/28 -on ceftriaxone -has been afebrile, not hypotensive tachycardia -on metoprolol generalized weakness -no focal neurologic deficits -likely related to alcohol withdrawal. DVT prophylaxis - on lovenox 70 q12 hours this patient is stable with consistent confusion. Agree with plan to step down from ICU. ESTELLE PALUMBO MD 12/31/201914: Supervisory-Addendum Brief Verification & Attestation Participated in pt care: history, MDM, physical Personally performed: history, MDM, supervision of care Care discussed with: Medical Student Procedures: n/a A medical student performed and documented this service. I reviewed all information documented by the medical student and made modifications to such information, when appropriate. Medical student performed patients physical exam. Medical decision making was done during tele-rounds with this medical student and a bedside RN . Plans in collaboration with bedside consultants and IM MDs. Discussed with RN to reach out if any questions or concerns A total of 5 minutes of critical care time was devoted to this patient today, required to treat and/or prevent further deterioration of critical care condition ( as above) . MILIND NUNEZ MED STUDENT Dec 31, 2020 10:17 ESTELLE PALUMBO MD Dec 31, 2020 19:15
--- NOTE | 2020-12-31 11:25 | Physical Therapy Daily Note ---
PT Daily Note-Current Subjective Patient is more alert on this date but still confused. Mental Status Patient Orientation: Confused Transfers SCALE: Activities may be completed with or without assistive devices. 1-Derxsuhahg-erahyif completes the activity by him/herself with no assistance from a helper. 5-Set-up or Clean-up Assistance-helper sets up or cleans up; patient completes activity. [place] assists only prior to or following the activity. 4-Supervision or Touching Assistance-helper provides verbal cues and/or touching/steadying and/or contact guard assistance as patient completes activity. Assistance may be provided throughout the activity or intermittently. 3-Partial/Moderate Assistance-helper does LESS THAN HALF the effort. [place] lifts, holds or supports trunk or limbs, but provides less than half the effort. 2-Substantial/Maximal Assistance-helper does MORE THAN HALF the effort. [place] lifts or holds trunk or limbs and provides more than half the effort. 6-Qjbhwsxxm-ednehd does ALL the effort. Patient does none of the effort to complete the activity. Or, the assistance of 2 or more helpers is required for the patient to complete the activity. If activity was not attempted, code reason: 7-Patient Refused. 9-Not Applicable-not attempted and the patient did not perform the activity before the current illness, exacerbation or injury. 10-Not Attempted due to Environmental Limitations-(lack of equipment, weather restraints, etc.). 88-Not Attempted due to Medical Conditions or Safety Concerns. Lying to Sitting/Side of Bed(Q: 2 Sit to Stand (QC): 2 Chair/Hbq-gk-Rfwlz Xfer(QC): 2 (patient did scoot right foot slightly with transfer on this date) sit to stand x 8 sets to FWW with patient continuing to present with flexed bilateral knees and trunk posture with inability to correct due to increase in tremors/shaking Gait Training Does the Patient Walk?: No and Walking Goal IS indicated Gait Assistive Device: FWW Exercises Seated Therapy Exercises: Ankle pumps, Long arc quads, Hip flexion Seated Reps: 15 (x 4 sets) Treatments Attempted to ambulate, however, patient unable to stand erect or advance either LE. Increase in tremors with attempt to stand erect. Assessment Patient making very slow progress with gross motor skills. Continues to have difficulty with active motor planning with gait training/functional mobility. Did perform exercises with constant VC's. PT Short Term Goals Short Term Goals Time Frame: Jan 05, 2021 PT Surfboard Designer Goals Surfboard Designer Goals PT Surfboard Designer Goals Time Frame: Jan 12, 2021 Roll Left & Right (QC): 4 Sit to Lying (QC): 4 Lying-Sitting on Side/Bed(QC): 4 Sit to Stand (QC): 4 Chair/Hve-uq-Nrixy Xfer(QC): 4 Toilet Transfer (QC): 4 Does the Patient Walk: No and Walking Goal IS indicated Walk 10 feet (QC): 3 Walk 50ft with 2 Turns (QC): 3 PT Plan Treatment/Plan Treatment Plan: Continue Plan of Care Treatment Plan: Bed Mobility, Education, Functional Activity Jem, Functional Strength, Group Therapy, Gait, Safety, Therapeutic Exercise, Transfers Treatment Duration: Mar 02, 2021 Frequency: 6 times per week Estimated Hrs Per Day: .25 hour per day Time/GCodes Time In: 850 Time Out: 923 Total Billed Treatment Time: 33 Total Billed Treatment 1 visit EX x 2 23 min ALIZE GALDAMEZ PT Dec 31, 2020 11:25
[2020-12-31] MEDS: cefTRIAXone 1,000 MG in WATER (STERILE) FOR INJECTION 10 ML IV SCH (13:24)
[2021-01-01] VITALS (9 sets, daily range): BP systolic 105–142; BP diastolic 57–99
[2021-01-01] MEDS: ENOXAPARIN 80 MG/0.8 ML (LOVENOX) SYR SC SCH ×2 (03:59→16:15)
[2021-01-01 04:46] LABS: BASOPHILS # (AUTO) 0.1 10^3/uL (0.0-0.1); BASOPHILS % (AUTO) 2 % (0-10); EOSINOPHILS # (AUTO) 0.1 10^3/uL (0.0-0.3); EOSINOPHILS % (AUTO) 1 % (0-10); HEMATOCRIT 38 % (40-54); HEMOGLOBIN 12.7 g/dL (13.3-17.7); LYMPHOCYTES # (AUTO) 2.4 10^3/uL (1.0-4.0); LYMPHOCYTES % (AUTO) 30 % (12-44); MEAN CORPUSCULAR HEMOGLOBIN 33 pg (25-34); MEAN CORPUSCULAR HGB CONC 34 g/dL (32-36); MEAN CORPUSCULAR VOLUME 99 fL (80-99); MEAN PLATELET VOLUME 10.1 fL (9.0-12.2); MONOCYTES # (AUTO) 0.8 10^3/uL (0.0-1.0); MONOCYTES % (AUTO) 10 % (0-12); NEUTROPHILS # (AUTO) 4.4 10^3/uL (1.8-7.8); NEUTROPHILS % (AUTO) 56 % (42-75); PLATELET COUNT 335 10^3/uL (130-400)
[2021-01-01 05:11] LABS: ALBUMIN 3.2 GM/DL (3.2-4.5); POTASSIUM 3.9 MMOL/L (3.6-5.0)
[2021-01-01 05:15] LABS: BILIRUBIN,TOTAL 0.3 MG/DL (0.1-1.0)
[2021-01-01 05:16] LABS: PHOSPHORUS 3.8 MG/DL (2.3-4.7)
[2021-01-01 05:17] LABS: CREATININE SERUM 0.76 MG/DL (0.60-1.30)
[2021-01-01 05:20] LABS: MAGNESIUM 2.3 MG/DL (1.6-2.4)
[2021-01-01] MEDS: PYRIDOXINE (VITAMIN B-6) 50 MG TABLET PO SCH (07:40)
[2021-01-01] MEDS: meTOprolol TARTRATE 50 MG (LOPRESSOR) TAB PO SCH ×2 (07:40→20:36)
[2021-01-01] MEDS: LORazepam 1 MG (ATIVAN) TAB PO SCH ×3 (07:40→20:36)
[2021-01-01] MEDS: FOLIC ACID 1 MG TAB PO SCH (07:40)
[2021-01-01] MEDS: THIAMINE 100 MG (VITAMIN B-1) TAB PO SCH (07:40)
--- NOTE | 2021-01-01 09:35 | Physical Therapy Daily Note ---
PT Daily Note-Current Subjective Pt in bed, sitter present. Pleasant and agreeable to up to chair. Pain Numeric Pain Scale: 0-No Pain Location: No Pain Reported Mental Status Patient Orientation: Person, Confused Multiple monitor lines Transfers SCALE: Activities may be completed with or without assistive devices. 5-Xqmkxvgsnr-dehiosn completes the activity by him/herself with no assistance from a helper. 5-Set-up or Clean-up Assistance-helper sets up or cleans up; patient completes activity. [place] assists only prior to or following the activity. 4-Supervision or Touching Assistance-helper provides verbal cues and/or touching/steadying and/or contact guard assistance as patient completes activity. Assistance may be provided throughout the activity or intermittently. 3-Partial/Moderate Assistance-helper does LESS THAN HALF the effort. [place] lifts, holds or supports trunk or limbs, but provides less than half the effort. 2-Substantial/Maximal Assistance-helper does MORE THAN HALF the effort. [place] lifts or holds trunk or limbs and provides more than half the effort. 6-Pvkfllunr-nsvmeu does ALL the effort. Patient does none of the effort to complete the activity. Or, the assistance of 2 or more helpers is required for the patient to complete the activity. If activity was not attempted, code reason: 7-Patient Refused. 9-Not Applicable-not attempted and the patient did not perform the activity before the current illness, exacerbation or injury. 10-Not Attempted due to Environmental Limitations-(lack of equipment, weather restraints, etc.). 88-Not Attempted due to Medical Conditions or Safety Concerns. Lying to Sitting/Side of Bed(Q: 4 (SBA with HOB elevated) Sit to Stand (QC): 3 (Does not achieve full upright posture) Chair/Dpw-cm-[place] Xfer(QC): 3 (Mod A x 1 SPT) Sit<->stand x 1 to FWW with mod A x 1 + 1 for dependent assist to don brief. Pt returned to sitting EOB. Mod A x 1 SPT to chair to (R). Up in chair with alarm activated, sitter present and nursing notified of level of assist with transfer. Weight Bearing Right Lower Extremity: Right Full Weight Bearing Left Lower Extremity: Left Full Weight Bearing Treatments Transfer training. Assessment Current Status: Fair Progress Pt tolerated well. Decreased level of assist required with up to EOB and bed- >chair transfer. Pt remains rigid and does not achieve upright posture with sit<->stand and transfers. PT Short Term Goals Short Term Goals Time Frame: Jan 05, 2021 PT Chancery Clerk Goals Chancery Clerk Goals PT Chancery Clerk Goals Time Frame: Jan 12, 2021 Roll Left & Right (QC): 4 Sit to Lying (QC): 4 Lying-Sitting on Side/Bed(QC): 4 Sit to Stand (QC): 4 Chair/Bgm-pa-Sizbr Xfer(QC): 4 Toilet Transfer (QC): 4 Does the Patient Walk: No and Walking Goal IS indicated Walk 10 feet (QC): 3 Walk 50ft with 2 Turns (QC): 3 PT Plan Problem List Problem List: Activity Tolerance, Functional Strength, Safety, Balance, Gait, Transfer, Bed Mobility, ROM Treatment/Plan Treatment Plan: Continue Plan of Care Treatment Plan: Bed Mobility, Education, Functional Activity Jem, Functional Strength, Group Therapy, Gait, Safety, Therapeutic Exercise, Transfers Treatment Duration: Mar 02, 2021 Frequency: 6 times per week Estimated Hrs Per Day: .25 hour per day Time/GCodes Time In: 903 Time Out: 913 Total Billed Treatment Time: 10 Total Billed Treatment 1, FA x 10' JAMAR BURGESS [place] Jan 01, 2021 09:35
--- NOTE | 2021-01-01 10:21 | Progress Note - Hospitalist ---
Subjective HPI/CC On Admission Date Seen by Provider: Jan 01, 2021 Time Seen by Provider: 10:17 Mr. Salinas is a 50-year-old white male presented to the office at his 's insistence who accompanied him due to a recent history of falls. He reports his first fall on November 14 at which time he injured his low back. Following that ti me he has noted numbness in his legs and has had for 5 subsequent falls none from height. He denied headache but reported generalized weakness. He admitted to longstanding heavy alcohol consumption for which he reports he drinks Granda light 3-4 sixpacks per day. It has been 7 years since his last office visit and he only came in because of his 's insistence. Ports his appetite has been poor and he thinks he is probably lost 20 to 30 pounds by our office scales compared to 7 years ago he is down 40 pounds. He reports some nausea denies abdominal pain denies orange urine and he does not recall the last period of time he left without heavy alcohol consumption. 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 He reports onset of a tremor for at least the past several months worse with action less so at rest and noting that when he drinks his tremor goes away he denies knowledge of any family history for tremor essential or Parkinson's disease. He denies night sweats chills fever orthopnea PND or pedal edema and denies abdominal distention is noted no melena or bright red blood per rectum. Subjective/Events-last exam Pt reports doing well today. More conversant. When asked what his name was he stated "Jessica" and then chuckled. I asked if he was joking with me and he said yes and was able to tell me his name is Agusto. He then did say he was in [place] and I am unsure if he was joking about that as he just laughed when I told him he was in [place]. He did not know the year and thought it was but when informed it was 2020 he states 'that's what I meant." When asked if I could do anything for him he asked for me to sneak a 6 pack of beer up in my purse and give it to him. Objective Exam Vital Signs Vital Signs Date Time Temp Pulse Resp B/P (MAP) Pulse Ox O2 Delivery O2 Flow Rate FiO2 01/01/21 08:52 86 16 122/82 (95) Room Air 01/01/21 07:52 99 01/01/21 07:03 36.4 01/01/21 04:00 5.00 Capillary Refill : Less Than 3 Seconds General Appearance: No Apparent Distress, WD/WN Respiratory: Lungs Clear, No Respiratory Distress Cardiovascular: Regular Rate, Rhythm, No Murmur Gastrointestinal: Normal Bowel Sounds, Non Tender, Soft Neurologic/Psychiatric: Alert, Other (orientation improving somewhat though he was apparently joking some today and unclear how much he is compensating for continued confusion with jokes) Results/Procedures Lab Laboratory Tests 01/01/21 04:38 Patient resulted labs reviewed. Imaging: Reviewed Imaging Report Assessment/Plan Assessment and Plan Assess & Plan/Chief Complaint Alcohol withdrawal with perceptual disturbance Alcohol dependence Alcohol myopathy Hypokalemia Obstructive sleep apnea CIWA protocol Continue Ativan as needed with scheduled ativan- has not needed any all night nor is he needing mittens s/p phenobarbital TeleICU following PT/OT SW consulted MRI concerning for possible normal pressure hydrocephalus Consider further evaluation once through acute withdrawal and able to tolerate procedure Discussed with his PCP Dr Meek 12/30 who had amber conversation with patient's yesterday regarding intermediate care, consider MRI of cervical and thoracic spine when able to cooperate better hopefully next week transfer to [facility] today as continues to improve tachycardia- resolved Improved Continue on Rocephin for 5 days- completes today Cardiology consulted, appreciate recs Continue metoprolol DVT prophylaxis: Lovenox Alcoholic hepatitis, resolved Hyponatremia, resolved Critical Care Critically Ill Patient STACI MCNAMARA MD Jan 01, 2021 10:21
[2021-01-01] MEDS: LORazepam INJ 2 MG/ML (ATIVAN) VIAL IV PRN ×3 (12:57→23:28)
[2021-01-01] MEDS: cefTRIAXone 1,000 MG in WATER (STERILE) FOR INJECTION 10 ML IV SCH (14:25)
[2021-01-01] MEDS: LORazepam 1 MG (ATIVAN) TAB PO PRN (16:22)
[2021-01-01] MEDS: NITROFURANTOIN 100 MG (MACROBID) CAPSULE PO SCH (20:36)
[2021-01-02] MEDS: LORazepam INJ 2 MG/ML (ATIVAN) VIAL IV PRN ×3 (02:06→22:38)
[2021-01-02 03:24] VITALS: BP 141/88
[2021-01-02] MEDS: ENOXAPARIN 80 MG/0.8 ML (LOVENOX) SYR SC SCH ×2 (03:53→16:16)
[2021-01-02] MEDS: LORazepam 1 MG (ATIVAN) TAB PO PRN ×2 (03:53→11:31)
[2021-01-02] MEDS: THIAMINE 100 MG (VITAMIN B-1) TAB PO SCH (03:53)
[2021-01-02 07:00] VITALS: BP 145/88
[2021-01-02] MEDS: meTOprolol TARTRATE 50 MG (LOPRESSOR) TAB PO SCH ×2 (08:50→20:05)
[2021-01-02] MEDS: FOLIC ACID 1 MG TAB PO SCH (08:50)
[2021-01-02] MEDS: NITROFURANTOIN 100 MG (MACROBID) CAPSULE PO SCH ×2 (08:50→20:05)
[2021-01-02] MEDS: LORazepam 1 MG (ATIVAN) TAB PO SCH ×3 (08:50→20:05)
[2021-01-02] MEDS: PYRIDOXINE (VITAMIN B-6) 50 MG TABLET PO SCH (09:43)
--- NOTE | 2021-01-02 10:17 | Progress Note - Hospitalist ---
Subjective HPI/CC On Admission Date Seen by Provider: Jan 02, 2021 Time Seen by Provider: 10:15 Mr. Salinas is a 50-year-old white male presented to the office at his 's insistence who accompanied him due to a recent history of falls. He reports his first fall on November 14 at which time he injured his low back. Following that time he has noted numbness in his legs and has had for 5 subsequent falls none from height. He denied headache but reported generalized weakness. He admitted to longstanding heavy alcohol consumption for which he reports he drinks Granda light 3-4 sixpacks per day. It has been 7 years since his last office visit and he only came in because of his 's insistence. Ports his appetite has been poor and he thinks he is probably lost 20 to 30 pounds by our office scales compared to 7 years ago he is down 40 pounds. He reports some nausea denies abdominal pain denies orange urine and he does not recall the last period of time he left without heavy alcohol consumption. 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 He reports onset of a tremor for at least the past several months worse with action less so at rest and noti ng that when he drinks his tremor goes away he denies knowledge of any family history for tremor essential or Parkinson's disease. He denies night sweats chills fever orthopnea PND or pedal edema and denies abdominal distention is noted no melena or bright red blood per rectum. Subjective/Events-last exam Pt reports doing well. RN states he was more confused overnight though. Was oriented to person and place for her but just person for me. Was able to tell me he was watching the weather channel though. Objective Exam Vital Signs Vital Signs Date Time Temp Pulse Resp B/P (MAP) Pulse Ox O2 Delivery O2 Flow Rate FiO2 01/02/21 09:00 Room Air 01/02/21 07:00 36.5 87 12 145/88 (107) 97 01/01/21 04:00 5.00 Capillary Refill : Less Than 3 Seconds General Appearance: No Apparent Distress, WD/WN Respiratory: Lungs Clear, No Respiratory Distress Cardiovascular: Regular Rate, Rhythm, No Murmur Neurologic/Psychiatric: Alert, Other (oriented to person only for me) Results/Procedures Lab Patient resulted labs reviewed. Imaging: Reviewed Imaging Report Assessment/Plan Assessment and Plan Assess & Plan/Chief Complaint Alcohol withdrawal with perceptual disturbance Alcohol dependence Alcohol myopathy Hypokalemia Obstructive sleep apnea CIWA protocol Continue Ativan as needed with scheduled ativan Had increased need last night but switch from ICU to 4th floor so not surprised he had increasing confusion in new setting s/p phenobarbital TeleICU following PT/OT SW consulted MRI concerning for possible normal pressure hydrocephalus Consider further evaluation once through acute withdrawal and able to tolerate procedure Discussed with his PCP Dr Meek 12/30 who had amber conversation with patient's regarding snf care, consider MRI of cervical and thoracic spine when able to cooperate better hopefully next week tachycardia- resolved Improved Urine cultures with enterococcus and coag neg staph- likely contaminant but will switch to Macrobid per sensitivities to make sure not impacting mentation Cardiology consulted, appreciate recs Continue metoprolol DVT prophylaxis: Lovenox Alcoholic hepatitis, resolved Hyponatremia, resolved Critical Care Critically Ill Patient STACI MCNAMARA MD Jan 02, 2021 10:17
[2021-01-02 10:27] VITALS: BP 134/88
[2021-01-02 16:00] VITALS: BP 126/80
[2021-01-02] MEDS: polyethylene glycoL POWDER 17 GM (MIRALAX) PACK PO SCH (20:05)
[2021-01-02 23:04] VITALS: BP 147/88
[2021-01-03 04:00] VITALS: BP 134/92
[2021-01-03] MEDS: ENOXAPARIN 80 MG/0.8 ML (LOVENOX) SYR SC SCH ×2 (05:12→15:24)
[2021-01-03] MEDS: THIAMINE 100 MG (VITAMIN B-1) TAB PO SCH (05:13)
[2021-01-03] MEDS: PYRIDOXINE (VITAMIN B-6) 50 MG TABLET PO SCH (07:51)
[2021-01-03] MEDS: FOLIC ACID 1 MG TAB PO SCH (07:51)
[2021-01-03] MEDS: LORazepam 1 MG (ATIVAN) TAB PO SCH ×3 (07:51→20:57)
[2021-01-03] MEDS: meTOprolol TARTRATE 50 MG (LOPRESSOR) TAB PO SCH ×4 (07:51→21:09)
[2021-01-03] MEDS: NITROFURANTOIN 100 MG (MACROBID) CAPSULE PO SCH ×2 (07:51→20:57)
[2021-01-03] MEDS: LORazepam 1 MG (ATIVAN) TAB PO PRN ×4 (07:52→20:57)
[2021-01-03 08:00] VITALS: BP 142/91
--- NOTE | 2021-01-03 11:10 | Progress Note - Hospitalist ---
Subjective HPI/CC On Admission Date Seen by Provider: Jan 03, 2021 Time Seen by Provider: 09:40 Mr. Salinas is a 50-year-old white male presented to the office at his 's insistence who accompanied him due to a recent history of falls. He reports his first fall on November 14 at which time he injured his low back. Following that time he has noted numbness in his legs and has had for 5 subsequent falls none from height. He denied headache but reported generalized weakness. He admitted to longstanding heavy alcohol consumption for which he reports he drinks Granda light 3-4 sixpacks per day. It has been 7 years since his last office visit and he only came in because of his 's insistence. Ports his appetite has been poor and he thinks he is probably lost 20 to 30 pounds by our office scales compared to 7 years ago he is down 40 pounds. He reports some nausea denies abdominal pain denies orange urine and he does not recall the last period of time he left without heavy alcohol consumption. 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 He reports onset of a tremor for at least the past several months worse with action less so at rest and noti ng that when he drinks his tremor goes away he denies knowledge of any family history for tremor essential or Parkinson's disease. He denies night sweats chills fever orthopnea PND or pedal edema and denies abdominal distention is noted no melena or bright red blood per rectum. Subjective/Events-last exam He is sitting on his bedside commode. He has no complaints or concerns. He is confused. Objective Exam Vital Signs Vital Signs Date Time Temp Pulse Resp B/P (MAP) Pulse Ox O2 Delivery O2 Flow Rate FiO2 01/03/21 08:25 98 Room Air 01/03/21 08:00 36.9 89 16 142/91 (108) 01/01/21 04:00 5.00 Capillary Refill : Less Than 3 Seconds General Appearance: No Apparent Distress, Chronically ill Respiratory: Lungs Clear, Normal Breath Sounds, No Respiratory Distress Cardiovascular: Regular Rate, Rhythm, No Edema, No Murmur Gastrointestinal: Normal Bowel Sounds, Non Tender, Soft Extremity: Normal Inspection, Non Tender, No Pedal Edema Neurologic/Psychiatric: Alert, Disoriented, Motor Weakness Skin: Normal Color, Warm/Dry Results/Procedures Lab Patient resulted labs reviewed. Imaging: Reviewed Imaging Report Assessment/Plan Assessment and Plan Assess & Plan/Chief Complaint Likely Wernicke encephalopathy Alcohol withdrawal with perceptual disturbance Alcohol dependence Alcohol myopathy Obstructive sleep apnea CIWA protocol Continue Ativan as needed with scheduled ativan s/p phenobarbital PT/OT SW consulted IRU evaluation DVT prophylaxis: Lovenox Alcoholic hepatitis, resolved Hyponatremia, resolved Hypokalemia, resolved Tachycardia, resolved Diagnosis/Problems Diagnosis/Problems (1) Wernicke encephalopathy Status: Acute (2) Alcohol withdrawal Status: Acute Qualifiers: Complication of substance-induced condition: with perceptual disturbance Qualified Codes: F10.232 - Alcohol dependence with withdrawal with perceptual disturbance (3) Alcohol dependence Status: Acute Qualifiers: Substance use status: in withdrawal Complication of substance-induced condition: with perceptual disturbance Qualified Codes: F10.232 - Alcohol dependence with withdrawal with perceptual disturbance (4) Alcoholic hepatitis without ascites Status: Resolved Resolution Date/Time: 12/24/20 @ 12:41 (5) Alcohol myopathy Status: Acute (6) Recurrent falls Status: Acute ANIL WYATT MD Jan 03, 2021 11:10
--- NOTE | 2021-01-03 11:50 | Physical Therapy Daily Note ---
PT Daily Note-Current Subjective Patient more alert and cooperative today. Mental Status Patient Orientation: Person Transfers SCALE: Activities may be completed with or without assistive devices. 2-Bqnseyjllt-kdeptol completes the activity by him/herself with no assistance from a helper. 5-Set-up or Clean-up Assistance-helper sets up or cleans up; patient completes activity. [place] assists only prior to or following the activity. 4-Supervision or Touching Assistance-helper provides verbal cues and/or touching/steadying and/or contact guard assistance as patient completes activity. Assistance may be provided throughout the activity or intermittently. 3-Partial/Moderate Assistance-helper does LESS THAN HALF the effort. [place] lifts, holds or supports trunk or limbs, but provides less than half the effort. 2-Substantial/Maximal Assistance-helper does MORE THAN HALF the effort. [place] lifts or holds trunk or limbs and provides more than half the effort. 0-Ytdmsmqlh-sadwwl does ALL the effort. Patient does none of the effort to complete the activity. Or, the assistance of 2 or more helpers is required for the patient to complete the activity. If activity was not attempted, code reason: 7-Patient Refused. 9-Not Applicable-not attempted and the patient did not perform the activity before the current illness, exacerbation or injury. 10-Not Attempted due to Environmental Limitations-(lack of equipment, weather restraints, etc.). 88-Not Attempted due to Medical Conditions or Safety Concerns. Sit to Lying (QC): 4 (SBA) Lying to Sitting/Side of Bed(Q: 4 (SBA) Sit to Stand (QC): 3 Weight Bearing Right Lower Extremity: Right Full Weight Bearing Left Lower Extremity: Left Full Weight Bearing Gait Training Distance: 10' x 4 Walk 10 feet (QC): 2 (with SBA of 1 for safety) Gait Assistive Device: FWW VC's for patient to "june" LE's to advance/continues with trunk and bilateral knee flexed posture with diminished motor planning but slightly improved Exercises Seated Therapy Exercises: Ankle pumps, Long arc quads, Hip flexion Seated Reps: 15 (x 3 sets) Assessment Patient tolerated treatment well and per RN request, returned to bed with 4 rails up and bed alarm activated/live sitter and telesitter present. PT Short Term Goals Short Term Goals Time Frame: Jan 05, 2021 PT Greenhouse Specialist Goals Fpc Goals PT Greenhouse Specialist Goals Time Frame: Jan 12, 2021 Roll Left & Right (QC): 4 Sit to Lying (QC): 4 Lying-Sitting on Side/Bed(QC): 4 Sit to Stand (QC): 4 Chair/Egm-zw-Wcqiu Xfer(QC): 4 Toilet Transfer (QC): 4 Does the Patient Walk: No and Walking Goal IS indicated Walk 10 feet (QC): 3 Walk 50ft with 2 Turns (QC): 3 PT Plan Treatment/Plan Treatment Plan: Continue Plan of Care Treatment Plan: Bed Mobility, Education, Functional Activity Jem, Functional Strength, Group Therapy, Gait, Safety, Therapeutic Exercise, Transfers Treatment Duration: Mar 02, 2021 Frequency: 6 times per week Estimated Hrs Per Day: .25 hour per day Time/GCodes Time In: 1015 Time Out: 1041 Total Billed Treatment Time: 26 Total Billed Treatment 1 visit GT 14 min EX 12 min ALIZE GALDAMEZ PT Jan 03, 2021 11:50
[2021-01-03 12:00] VITALS: BP 133/90
[2021-01-03] MEDS: LORazepam INJ 2 MG/ML (ATIVAN) VIAL IM/IV PRN (13:28)
[2021-01-03] MEDS: LORazepam INJ 2 MG/ML (ATIVAN) VIAL IV PRN ×2 (15:24→17:52)
[2021-01-03 16:03] VITALS: BP 144/88
[2021-01-03 19:35] VITALS: BP 109/74
[2021-01-03] MEDS: DOCUSATE SODIUM 100 MG (COLACE) CAP PO SCH (20:57)
[2021-01-03] MEDS: polyethylene glycoL POWDER 17 GM (MIRALAX) PACK PO SCH (20:58)
[2021-01-03 21:06] VITALS: BP 144/94
[2021-01-04] VITALS (7 sets, daily range): BP systolic 111–133; BP diastolic 68–81
[2021-01-04] MEDS: ENOXAPARIN 80 MG/0.8 ML (LOVENOX) SYR SC SCH ×2 (04:12→16:16)
[2021-01-04] MEDS: LORazepam INJ 2 MG/ML (ATIVAN) VIAL IV PRN ×4 (05:17→16:17)
[2021-01-04] MEDS: THIAMINE 100 MG (VITAMIN B-1) TAB PO SCH (06:01)
[2021-01-04] MEDS: LORazepam 1 MG (ATIVAN) TAB PO SCH ×3 (09:11→20:01)
[2021-01-04] MEDS: FOLIC ACID 1 MG TAB PO SCH (09:11)
[2021-01-04] MEDS: NITROFURANTOIN 100 MG (MACROBID) CAPSULE PO SCH ×2 (09:11→20:01)
[2021-01-04] MEDS: DOCUSATE SODIUM 100 MG (COLACE) CAP PO SCH ×2 (09:11→20:01)
[2021-01-04] MEDS: PYRIDOXINE (VITAMIN B-6) 50 MG TABLET PO SCH (09:11)
[2021-01-04] MEDS: meTOprolol TARTRATE 50 MG (LOPRESSOR) TAB PO SCH ×2 (09:11→20:01)
[2021-01-04] MEDS: LORazepam INJ 2 MG/ML (ATIVAN) VIAL IM/IV PRN ×3 (09:59→14:56)
--- NOTE | 2021-01-04 13:21 | Physical Therapy Daily Note ---
PT Daily Note-Current Subjective Patient is in bed with live sitter and tele sitter. Mental Status Patient Orientation: Confused Transfers SCALE: Activities may be completed with or without assistive devices. 1-Dncatpwarv-cqtohhm completes the activity by him/herself with no assistance from a helper. 5-Set-up or Clean-up Assistance-helper sets up or cleans up; patient completes activity. [place] assists only prior to or following the activity. 4-Supervision or Touching Assistance-helper provides verbal cues and/or touching/steadying and/or contact guard assistance as patient completes activity. Assistance may be provided throughout the activity or intermittently. 3-Partial/Moderate Assistance-helper does LESS THAN HALF the effort. [place] lifts, holds or supports trunk or limbs, but provides less than half the effort. 2-Substantial/Maximal Assistance-helper does MORE THAN HALF the effort. [place] lifts or holds trunk or limbs and provides more than half the effort. 7-Vcdrtgimg-zmlmrl does ALL the effort. Patient does none of the effort to complete the activity. Or, the assistance of 2 or more helpers is required for the patient to complete the activity. If activity was not attempted, code reason: 7-Patient Refused. 9-Not Applicable-not attempted and the patient did not perform the activity before the current illness, exacerbation or injury. 10-Not Attempted due to Environmental Limitations-(lack of equipment, weather restraints, etc.). 88-Not Attempted due to Medical Conditions or Safety Concerns. Lying to Sitting/Side of Bed(Q: 2 Sit to Stand (QC): 2 Chair/Ghh-sz-Ojclr Xfer(QC): 2 increased confusion with decrease motor planning Weight Bearing Right Lower Extremity: Right Full Weight Bearing Left Lower Extremity: Left Full Weight Bearing Gait Training Does the Patient Walk?: No and Walking Goal IS indicated Exercises Seated Therapy Exercises: Ankle pumps, Long arc quads, Hip flexion Seated Reps: 15 (x 2 sets) Standing: Sit to Stand (x 6 sets with VC's to stand erect in FWW to work on posture and strength) Assessment Per RN, patient has received ativan due to agitation. Patient unable to follow direction or motor plan today. PT Short Term Goals Short Term Goals Time Frame: Jan 05, 2021 PT Mcc Goals Polymer Specialist Goals PT Mcc Goals Time Frame: Jan 12, 2021 Roll Left & Right (QC): 4 Sit to Lying (QC): 4 Lying-Sitting on Side/Bed(QC): 4 Sit to Stand (QC): 4 Chair/Eti-wl-Eqihm Xfer(QC): 4 Toilet Transfer (QC): 4 Does the Patient Walk: No and Walking Goal IS indicated Walk 10 feet (QC): 3 Walk 50ft with 2 Turns (QC): 3 PT Plan Treatment/Plan Treatment Plan: Continue Plan of Care Treatment Plan: Bed Mobility, Education, Functional Activity Jem, Functional Strength, Group Therapy, Gait, Safety, Therapeutic Exercise, Transfers Treatment Duration: Mar 02, 2021 Frequency: 6 times per week Estimated Hrs Per Day: .25 hour per day Time/GCodes Time In: 1130 Time Out: 1153 Total Billed Treatment Time: 23 Total Billed Treatment 1 visit EX x 2 23 min ALIZE GALDAMEZ PT Jan 04, 2021 13:21
--- NOTE | 2021-01-04 17:34 | Progress Note - Hospitalist ---
Subjective HPI/CC On Admission Date Seen by Provider: Jan 04, 2021 Time Seen by Provider: 10:40 Mr. Salinas is a 50-year-old white male presented to the office at his 's insistence who accompanied him due to a recent history of falls. He reports his first fall on November 14 at which time he injured his low back. Following that time he has noted numbness in his legs and has had for 5 subsequent falls none from height. He denied headache but reported generalized weakness. He admitted to longstanding heavy alcohol consumption for which he reports he drinks Granda light 3-4 sixpacks per day. It has been 7 years since his last office visit and he only came in because of his 's insistence. Ports his appetite has been poor and he thinks he is probably lost 20 to 30 pounds by our office scales compared to 7 years ago he is down 40 pounds. He reports some nausea denies abdominal pain denies orange urine and he does not recall the last period of time he left without heavy alcohol consumption. 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 He reports onset of a tremor for at least the past several months worse with action less so at rest and noti ng that when he drinks his tremor goes away he denies knowledge of any family history for tremor essential or Parkinson's disease. He denies night sweats chills fever orthopnea PND or pedal edema and denies abdominal distention is noted no melena or bright red blood per rectum. Subjective/Events-last exam He remains confused. He denies pain. He denies trouble breathing. Objective Exam Vital Signs Vital Signs Date Time Temp Pulse Resp B/P (MAP) Pulse Ox O2 Delivery O2 Flow Rate FiO2 01/04/21 15:15 35.9 100 14 133/81 (98) 98 Room Air 01/01/21 04:00 5.00 Capillary Refill : Less Than 3 Seconds General Appearance: No Apparent Distress, Chronically ill Respiratory: Lungs Clear, Normal Breath Sounds, No Respiratory Distress Cardiovascular: Regular Rate, Rhythm, No Edema, No Murmur Gastrointestinal: Normal Bowel Sounds, Non Tender, Soft Extremity: Normal Inspection, Non Tender, No Pedal Edema Neurologic/Psychiatric: Alert, Disoriented, Motor Weakness Skin: Normal Color, Warm/Dry Results/Procedures Lab Patient resulted labs reviewed. 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 Alcohol withdrawal with perceptual disturbance Alcohol dependence Alcohol myopathy Obstructive sleep apnea CIWA protocol Continue thiamine, folic acid, multivitamin, pyridoxine Continue Ativan s/p phenobarbital PT/OT SW consulted, appreciate assistance IRU unable to accept with sitter DVT prophylaxis: Lovenox Alcoholic hepatitis, resolved Hyponatremia, resolved Hypokalemia, resolved Tachycardia, resolved Diagnosis/Problems Diagnosis/Problems (1) Wernicke-Korsakoff syndrome (alcoholic) Status: Acute (2) Alcohol withdrawal Status: Acute Qualifiers: Complication of substance-induced condition: with perceptual disturbance Qualified Codes: F10.232 - Alcohol dependence with withdrawal with perceptual disturbance (3) Alcohol dependence Status: Acute Qualifiers: Substance use status: in withdrawal Complication of substance-induced condition: with perceptual disturbance Qualified Codes: F10.232 - Alcohol dependence with withdrawal with perceptual disturbance (4) Alcoholic hepatitis without ascites Status: Resolved Resolution Date/Time: 12/24/20 @ 12:41 (5) Alcohol myopathy Status: Acute (6) Recurrent falls Status: Acute ANIL WYATT MD Jan 04, 2021 17:34
[2021-01-04] MEDS: polyethylene glycoL POWDER 17 GM (MIRALAX) PACK PO SCH (20:01)
[2021-01-04] MEDS: LORazepam 1 MG (ATIVAN) TAB PO PRN (20:01)
[2021-01-05] MEDS: LORazepam INJ 2 MG/ML (ATIVAN) VIAL IV PRN ×4 (00:47→11:09)
[2021-01-05 03:18] VITALS: BP 125/78
[2021-01-05] MEDS: ENOXAPARIN 80 MG/0.8 ML (LOVENOX) SYR SC SCH (03:33)
[2021-01-05] MEDS: THIAMINE 100 MG (VITAMIN B-1) TAB PO SCH (05:51)
[2021-01-05 06:32] LABS: BASOPHILS # (AUTO) 0.1 10^3/uL (0.0-0.1); BASOPHILS % (AUTO) 1 % (0-10); EOSINOPHILS # (AUTO) 0.1 10^3/uL (0.0-0.3); EOSINOPHILS % (AUTO) 1 % (0-10); HEMATOCRIT 39 % (40-54); LYMPHOCYTES % (AUTO) 23 % (12-44); MEAN CORPUSCULAR HEMOGLOBIN 33 pg (25-34); MEAN CORPUSCULAR HGB CONC 34 g/dL (32-36); MEAN CORPUSCULAR VOLUME 99 fL (80-99); MEAN PLATELET VOLUME 10.4 fL (9.0-12.2); MONOCYTES # (AUTO) 0.7 10^3/uL (0.0-1.0); MONOCYTES % (AUTO) 9 % (0-12); NEUTROPHILS # (AUTO) 5.4 10^3/uL (1.8-7.8); NEUTROPHILS % (AUTO) 65 % (42-75); PLATELET COUNT 374 10^3/uL (130-400); WHITE BLOOD COUNT 8.4 10^3/uL (4.3-11.0)
[2021-01-05 06:44] LABS: POTASSIUM 3.6 MMOL/L (3.6-5.0)
[2021-01-05 06:45] LABS: CALCIUM 9.2 MG/DL (8.5-10.1)
[2021-01-05 06:50] LABS: CREATININE SERUM 0.71 MG/DL (0.60-1.30)
[2021-01-05 06:53] LABS: MAGNESIUM 2.1 MG/DL (1.6-2.4)
[2021-01-05 07:30] VITALS: BP 148/90
[2021-01-05] MEDS: DOCUSATE SODIUM 100 MG (COLACE) CAP PO SCH ×2 (07:38→20:13)
[2021-01-05] MEDS: PYRIDOXINE (VITAMIN B-6) 50 MG TABLET PO SCH (07:38)
[2021-01-05] MEDS: FOLIC ACID 1 MG TAB PO SCH (07:38)
[2021-01-05] MEDS: NITROFURANTOIN 100 MG (MACROBID) CAPSULE PO SCH ×2 (07:38→20:13)
[2021-01-05] MEDS: meTOprolol TARTRATE 50 MG (LOPRESSOR) TAB PO SCH ×2 (07:38→20:13)
[2021-01-05] MEDS: LORazepam 1 MG (ATIVAN) TAB PO PRN ×6 (07:39→20:14)
[2021-01-05] MEDS: LORazepam 1 MG (ATIVAN) TAB PO SCH ×3 (07:39→18:19)
[2021-01-05] MEDS ORDERED: risperiDONE 0.5 MG (RisperDAL) TABLET PO ONE (09:30)
--- NOTE | 2021-01-05 10:41 | Progress Note - Hospitalist ---
Subjective HPI/CC On Admission Date Seen by Provider: Jan 05, 2021 Time Seen by Provider: 09:20 Mr. Salinas is a 50-year-old white male presented to the office at his 's insistence who accompanied him due to a recent history of falls. He reports his first fall on November 14 at which time he injured his low back. Following that ti me he has noted numbness in his legs and has had for 5 subsequent falls none from height. He denied headache but reported generalized weakness. He admitted to longstanding heavy alcohol consumption for which he reports he drinks Granda light 3-4 sixpacks per day. It has been 7 years since his last office visit and he only came in because of his 's insistence. Ports his appetite has been poor and he thinks he is probably lost 20 to 30 pounds by our office scales compared to 7 years ago he is down 40 pounds. He reports some nausea denies abdominal pain denies orange urine and he does not recall the last period of time he left without heavy alcohol consumption. 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 He reports onset of a tremor for at least the past several months worse with action less so at rest and noting that when he drinks his tremor goes away he denies knowledge of any family history for tremor essential or Parkinson's disease. He denies night sweats chills fever orthopnea PND or pedal edema and denies abdominal distention is noted no melena or bright red blood per rectum. Subjective/Events-last exam He remains confused. He is denying pain. He is not short of breath. He has no complaints or concerns. Objective Exam Vital Signs Vital Signs Date Time Temp Pulse Resp B/P (MAP) Pulse Ox O2 Delivery O2 Flow Rate FiO2 01/05/21 08:30 Room Air 01/05/21 07:30 35.7 113 18 148/90 (109) 99 01/01/21 04:00 5.00 Capillary Refill : Less Than 3 Seconds General Appearance: No Apparent Distress, Chronically ill, Thin Respiratory: Lungs Clear, Normal Breath Sounds, No Respiratory Distress Cardiovascular: Regular Rate, Rhythm, No Edema, No Murmur Gastrointestinal: Normal Bowel Sounds, Non Tender, Soft Extremity: Normal Inspection, Non Tender, No Pedal Edema Neurologic/Psychiatric: Alert, Disoriented, Motor Weakness Skin: Normal Color, Warm/Dry Results/Procedures Lab Laboratory Tests 01/05/21 06:10 Patient resulted labs reviewed. 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 Alcohol withdrawal with perceptual disturbance Alcohol dependence Alcohol myopathy Obstructive sleep apnea CIWA protocol Continue thiamine, folic acid, multivitamin, pyridoxine Continue Ativan s/p phenobarbital Add Risperdal PT/OT SW consulted, appreciate assistance IRU unable to accept with sitter DVT prophylaxis: Lovenox Alcoholic hepatitis, resolved Hyponatremia, resolved Hypokalemia, resolved Tachycardia, resolved Diagnosis/Problems Diagnosis/Problems (1) Wernicke-Korsakoff syndrome (alcoholic) Status: Acute (2) Alcohol withdrawal Status: Acute Qualifiers: Complication of substance-induced condition: with perceptual disturbance Qualified Codes: F10.232 - Alcohol dependence with withdrawal with perceptual disturbance (3) Alcohol dependence Status: Acute Qualifiers: Substance use status: in withdrawal Complication of substance-induced condition: with perceptual disturbance Qualified Codes: F10.232 - Alcohol dependence with withdrawal with perceptual disturbance (4) Alcoholic hepatitis without ascites Status: Resolved Resolution Date/Time: 12/24/20 @ 12:41 (5) Alcohol myopathy Status: Acute (6) Recurrent falls Status: Acute ANIL WYATT MD Jan 05, 2021 10:41
--- NOTE | 2021-01-05 11:09 | Physical Therapy Progress Note ---
Therapy Progress Note Pt RN request hold this am. RN states pt is agitated and is about to administer medication. Will check back on pt this afternoon. DEEPA GALVAN RECORDS COORDINATOR Jan 05, 2021 11:09
[2021-01-05 12:00] VITALS: BP 123/79
--- NOTE | 2021-01-05 13:24 | Physical Therapy Daily Note ---
PT Daily Note-Current Subjective Pt in room w/ live sitter and tele sitter. Mental Status Patient Orientation: Person, Confused Transfers SCALE: Activities may be completed with or without assistive devices. 5-Cmdcfvyfuu-qrqfxwl completes the activity by him/herself with no assistance from a helper. 5-Set-up or Clean-up Assistance-helper sets up or cleans up; patient completes activity. [place] assists only prior to or following the activity. 4-Supervision or Touching Assistance-helper provides verbal cues and/or touching/steadying and/or contact guard assistance as patient completes activity. Assistance may be provided throughout the activity or intermittently. 3-Partial/Moderate Assistance-helper does LESS THAN HALF the effort. [place] lifts, holds or supports trunk or limbs, but provides less than half the effort. 2-Substantial/Maximal Assistance-helper does MORE THAN HALF the effort. [place] lifts or holds trunk or limbs and provides more than half the effort. 1-Kwyikinaj-hitnvk does ALL the effort. Patient does none of the effort to complete the activity. Or, the assistance of 2 or more helpers is required for the patient to complete the activity. If activity was not attempted, code reason: 7-Patient Refused. 9-Not Applicable-not attempted and the patient did not perform the activity before the current illness, exacerbation or injury. 10-Not Attempted due to Environmental Limitations-(lack of equipment, weather restraints, etc.). 88-Not Attempted due to Medical Conditions or Safety Concerns. Roll Left & Right (QC): 2 Sit to Lying (QC): 2 Lying to Sitting/Side of Bed(Q: 2 Sit to Stand (QC): 2 Weight Bearing Right Lower Extremity: Right Full Weight Bearing Left Lower Extremity: Left Full Weight Bearing Exercises Supine Ex: Rolling, Scooting Treatments Pt in bed, instructed to sit EOB. Pt unable to comprehend, VC and TC given to advance LE to EOB. Pt brings feet to EOB, MERCHANDISE APPRAISER advances LE rest of way. Pt sits upright, attempts to push torso backward. Pt instructed to sit upright prior to sit to stand. When instructed to sit to stand, pt pushed off of bed approx 2" w/ MaxA, then stiffened body. Pt unable to hold upright stand, and sat down. Pt attempted sit to stand second time, but pt resisted standing motion. Pt instructed to return to supine, pt unable to comprehend at this time, MaxA x2 to bring pt supine. Pt completes rolling to have brief and pad changed w/ MaxA x2, VC, and TC for placement and sequencing. Pt instructed in scooting, pt able to scoot a few inches, MaxA x2 to scoot pt up the rest of the way in bed. Pt remains in bed w/ sitter in room, all needs met. Assessment Current Status: Poor Progress Pt extremely confused throughout tx, unable to comprehend instructions, VC or TC. Pt resisted any motion attempted throughout tx. PT Short Term Goals Short Term Goals Time Frame: Jan 05, 2021 PT Pneumatic Tester Mechanic Goals Pneumatic Tester Mechanic Goals PT Pneumatic Tester Mechanic Goals Time Frame: Jan 12, 2021 Roll Left & Right (QC): 4 Sit to Lying (QC): 4 Lying-Sitting on Side/Bed(QC): 4 Sit to Stand (QC): 4 Chair/Bsd-mt-Pzbiq Xfer(QC): 4 Toilet Transfer (QC): 4 Does the Patient Walk: No and Walking Goal IS indicated Walk 10 feet (QC): 3 Walk 50ft with 2 Turns (QC): 3 PT Plan Treatment/Plan Treatment Plan: Continue Plan of Care Treatment Plan: Bed Mobility, Education, Functional Activity Jem, Functional Strength, Group Therapy, Gait, Safety, Therapeutic Exercise, Transfers Treatment Duration: Mar 02, 2021 Frequency: 6 times per week Estimated Hrs Per Day: .25 hour per day Time/GCodes Time In: 1303 Time Out: 1315 Total Billed Treatment Time: 12 Total Billed Treatment 1, DEEPA MATTA PTA Jan 05, 2021 13:24
[2021-01-05] MEDS: ENOXAPARIN 40 MG/0.4 ML (LOVENOX) SYR SC SCH (15:13)
[2021-01-05 16:00] VITALS: BP 120/82
[2021-01-05 19:45] VITALS: BP 112/71
[2021-01-05] MEDS: risperiDONE 0.5 MG (RisperDAL) TABLET PO SCH (20:13)
[2021-01-05] MEDS: polyethylene glycoL POWDER 17 GM (MIRALAX) PACK PO SCH (20:14)
[2021-01-06] VITALS: BP 115/80
[2021-01-06] MEDS: LORazepam 1 MG (ATIVAN) TAB PO PRN ×2 (02:08→22:29)
[2021-01-06 04:59] VITALS: BP 113/61
[2021-01-06] MEDS: THIAMINE 100 MG (VITAMIN B-1) TAB PO SCH (06:28)
[2021-01-06] MEDS: LORazepam INJ 2 MG/ML (ATIVAN) VIAL IV PRN (07:40)
[2021-01-06 08:00] VITALS: BP 107/70
[2021-01-06] MEDS ORDERED: LORazepam 0.5 MG (ATIVAN) TABLET PO PRN (08:15)
[2021-01-06] MEDS: meTOprolol TARTRATE 50 MG (LOPRESSOR) TAB PO SCH ×2 (08:46→20:29)
[2021-01-06] MEDS: DOCUSATE SODIUM 100 MG (COLACE) CAP PO SCH ×2 (08:46→20:29)
[2021-01-06] MEDS: PYRIDOXINE (VITAMIN B-6) 50 MG TABLET PO SCH (08:46)
[2021-01-06] MEDS: FOLIC ACID 1 MG TAB PO SCH (08:47)
[2021-01-06] MEDS: risperiDONE 0.5 MG (RisperDAL) TABLET PO SCH ×2 (08:48→20:29)
[2021-01-06] MEDS: LORazepam 1 MG (ATIVAN) TAB PO SCH ×3 (08:48→20:29)
[2021-01-06] MEDS: NITROFURANTOIN 100 MG (MACROBID) CAPSULE PO SCH (08:51)
--- NOTE | 2021-01-06 11:44 | Progress Note - Hospitalist ---
Subjective HPI/CC On Admission Date Seen by Provider: Jan 06, 2021 Time Seen by Provider: 10:30 Mr. Salinas is a 50-year-old white male presented to the office at his 's insistence who accompanied him due to a recent history of falls. He reports his first fall on November 14 at which time he injured his low back. Following that time he has noted numbness in his legs and has had for 5 subsequent falls none from height. He denied headache but reported generalized weakness. He admitted to longstanding heavy alcohol consumption for which he reports he drinks Granda light 3-4 sixpacks per day. It has been 7 years since his last office visit and he only came in because of his 's insistence. Ports his appetite has been poor and he thinks he is probably lost 20 to 30 pounds by our office scales compared to 7 years ago he is down 40 pounds. He reports some nausea denies abdominal pain denies orange urine and he does not recall the last period of time he left without heavy alcohol consumption. 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 He reports onset of a tremor for at least the past several months worse with action less so at rest and noti ng that when he drinks his tremor goes away he denies knowledge of any family history for tremor essential or Parkinson's disease. He denies night sweats chills fever orthopnea PND or pedal edema and denies abdominal distention is noted no melena or bright red blood per rectum. Subjective/Events-last exam He remains confused. He is sitting in his bedside chair. He denies pain. He denies trouble breathing. He did not eat very much breakfast. He drank an entire Ensure. Objective Exam Vital Signs Vital Signs Date Time Temp Pulse Resp B/P (MAP) Pulse Ox O2 Delivery O2 Flow Rate FiO2 01/06/21 09:42 Room Air 01/06/21 08:00 108 18 107/70 (82) 95 01/06/21 04:59 36.7 01/01/21 04:00 5.00 Capillary Refill : Less Than 3 Seconds General Appearance: No Apparent Distress, Chronically ill, Thin Respiratory: Lungs Clear, Normal Breath Sounds, No Respiratory Distress Cardiovascular: Regular Rate, Rhythm, No Edema, No Murmur Gastrointestinal: Normal Bowel Sounds, Non Tender, Soft Extremity: Normal Inspection, Non Tender, No Pedal Edema Neurologic/Psychiatric: Alert, Disoriented Skin: Normal Color, Warm/Dry Results/Procedures Lab Patient resulted labs reviewed. 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 Alcohol withdrawal with perceptual disturbance Alcohol dependence Alcohol myopathy Obstructive sleep apnea Continue thiamine, folic acid, multivitamin, pyridoxine Decrease Ativan s/p phenobarbital Continue Risperdal PT/OT SW consulted, appreciate assistance IRU unable to accept with sitter UTI Macrobid DVT prophylaxis: Lovenox Alcoholic hepatitis, resolved Hyponatremia, resolved Hypokalemia, resolved Tachycardia, resolved Diagnosis/Problems Diagnosis/Problems (1) Wernicke-Korsakoff syndrome (alcoholic) Status: Acute (2) Alcohol withdrawal Status: Acute Qualifiers: Complication of substance-induced condition: with perceptual disturbance Qualified Codes: F10.232 - Alcohol dependence with withdrawal with perceptual disturbance (3) Alcohol dependence Status: Acute Qualifiers: Substance use status: in withdrawal Complication of substance-induced condition: with perceptual disturbance Qualified Codes: F10.232 - Alcohol dependence with withdrawal with perceptual disturbance (4) Alcoholic hepatitis without ascites Status: Resolved Resolution Date/Time: 12/24/20 @ 12:41 (5) Alcohol myopathy Status: Acute (6) Recurrent falls Status: Acute (7) UTI (urinary tract infection) Status: Acute ANIL WYATT MD Jan 06, 2021 11:44
--- NOTE | 2021-01-06 11:59 | Physical Therapy Daily Note ---
PT Daily Note-Current Subjective Patient up in recliner per nursing staff requiring assist of 2. Patient is slurring speech and acting very sedated. Has live sitter present. Mental Status Patient Orientation: Listless Transfers SCALE: Activities may be completed with or without assistive devices. 6-Jcjhhksdiq-qlaphpg completes the activity by him/herself with no assistance from a helper. 5-Set-up or Clean-up Assistance-helper sets up or cleans up; patient completes activity. [place] assists only prior to or following the activity. 4-Supervision or Touching Assistance-helper provides verbal cues and/or touching/steadying and/or contact guard assistance as patient completes activity. Assistance may be provided throughout the activity or intermittently. 3-Partial/Moderate Assistance-helper does LESS THAN HALF the effort. [place] lifts, holds or supports trunk or limbs, but provides less than half the effort. 2-Substantial/Maximal Assistance-helper does MORE THAN HALF the effort. [place] lifts or holds trunk or limbs and provides more than half the effort. 4-Figfjlmae-dxbjem does ALL the effort. Patient does none of the effort to complete the activity. Or, the assistance of 2 or more helpers is required for the patient to complete the activity. If activity was not attempted, code reason: 7-Patient Refused. 9-Not Applicable-not attempted and the patient did not perform the activity before the current illness, exacerbation or injury. 10-Not Attempted due to Environmental Limitations-(lack of equipment, weather restraints, etc.). 88-Not Attempted due to Medical Conditions or Safety Concerns. Sit to Stand (QC): 1 (x 2 with inability to perform standing due to weakness/sedation) Weight Bearing Right Lower Extremity: Right Full Weight Bearing Left Lower Extremity: Left Full Weight Bearing Exercises Seated Therapy Exercises: Long arc quads, Hip flexion Seated Reps: 15 (AROM with VC's to remain on task. ) Assessment Increase listlessness on this date with inability to perform gross motor skills. Patient attempted to stand to FWW x 3 sets with assist of 2 of PT. Unable to initiate gait pattern. Per deputy director of nursing, patient has received scheduled ativan this morning. PT will increase activity as patient tolerates or is able to actively participate in . PT Short Term Goals Short Term Goals Time Frame: Jan 05, 2021 PT Senior Care Goals Senior Care Goals PT Senior Care Goals Time Frame: Jan 12, 2021 Roll Left & Right (QC): 4 Sit to Lying (QC): 4 Lying-Sitting on Side/Bed(QC): 4 Sit to Stand (QC): 4 Chair/Xil-iu-Dgudh Xfer(QC): 4 Toilet Transfer (QC): 4 Does the Patient Walk: No and Walking Goal IS indicated Walk 10 feet (QC): 3 Walk 50ft with 2 Turns (QC): 3 PT Plan Treatment/Plan Treatment Plan: Continue Plan of Care Treatment Plan: Bed Mobility, Education, Functional Activity Jem, Functional Strength, Group Therapy, Gait, Safety, Therapeutic Exercise, Transfers Treatment Duration: Mar 02, 2021 Frequency: 6 times per week Estimated Hrs Per Day: .25 hour per day Time/GCodes Time In: 1100 Time Out: 1113 Total Billed Treatment Time: 13 Total Billed Treatment 1 visit EX 13 min ALIZE GALDAMEZ PT Jan 06, 2021 11:59
[2021-01-06] MEDS ORDERED: LORazepam 1 MG (ATIVAN) TAB PO SCH (13:00)
[2021-01-06] MEDS: ENOXAPARIN 40 MG/0.4 ML (LOVENOX) SYR SC SCH (17:35)
[2021-01-06 17:46] VITALS: BP 143/89
[2021-01-06] MEDS ORDERED: 1/2 NS IV SOLUTION 1,000 ML IV PRN (18:00)
[2021-01-06] MEDS ORDERED: D5 1/2 NS 1000 ML IV SOLUTION 1,000 ML IV PRN (18:00)
[2021-01-06] MEDS: polyethylene glycoL POWDER 17 GM (MIRALAX) PACK PO SCH (20:03)
[2021-01-06 23:13] VITALS: BP 141/93
[2021-01-07] MEDS: LORazepam INJ 2 MG/ML (ATIVAN) VIAL IV PRN (05:29)
[2021-01-07] MEDS: THIAMINE 100 MG (VITAMIN B-1) TAB PO SCH (05:32)
[2021-01-07 08:00] VITALS: BP 133/82
[2021-01-07] MEDS: DOCUSATE SODIUM 100 MG (COLACE) CAP PO SCH ×2 (09:18→20:01)
[2021-01-07] MEDS: FOLIC ACID 1 MG TAB PO SCH (09:18)
[2021-01-07] MEDS: meTOprolol TARTRATE 50 MG (LOPRESSOR) TAB PO SCH ×2 (09:18→20:01)
[2021-01-07] MEDS: risperiDONE 1 MG (RisperDAL) TAB PO SCH ×2 (09:18→20:01)
[2021-01-07] MEDS: LORazepam 1 MG (ATIVAN) TAB PO SCH ×3 (09:19→20:00)
--- NOTE | 2021-01-07 10:12 | Physical Therapy Daily Note ---
PT Daily Note-Current Subjective Patient more alert on this date. Alert and Oriented x 2 to person and date. Mental Status Patient Orientation: Person Transfers SCALE: Activities may be completed with or without assistive devices. 4-Papcfvnamx-jgnlqsu completes the activity by him/herself with no assistance from a helper. 5-Set-up or Clean-up Assistance-helper sets up or cleans up; patient completes a ctivity. [place] assists only prior to or following the activity. 4-Supervision or Touching Assistance-helper provides verbal cues and/or touching/steadying and/or contact guard assistance as patient completes activity. Assistance may be provided throughout the activity or intermittently. 3-Partial/Moderate Assistance-helper does LESS THAN HALF the effort. [place] lifts, holds or supports trunk or limbs, but provides less than half the effort. 2-Substantial/Maximal Assistance-helper does MORE THAN HALF the effort. [place] lifts or holds trunk or limbs and provides more than half the effort. 1-Rlwowogbw-eopdyg does ALL the effort. Patient does none of the effort to complete the activity. Or, the assistance of 2 or more helpers is required for the patient to complete the activity. If activity was not attempted, code reason: 7-Patient Refused. 9-Not Applicable-not attempted and the patient did not perform the activity before the current illness, exacerbation or injury. 10-Not Attempted due to Environmental Limitations-(lack of equipment, weather restraints, etc.). 88-Not Attempted due to Medical Conditions or Safety Concerns. Lying to Sitting/Side of Bed(Q: 2 Sit to Stand (QC): 2 (x 6 sets with 3 sets of CGA for sit to stand to FWW with VC's for hand placement) Chair/Ave-ux-Qworf Xfer(QC): 2 Weight Bearing Right Lower Extremity: Right Full Weight Bearing Left Lower Extremity: Left Full Weight Bearing Gait Training Does the Patient Walk?: Yes Distance: 20' x 4 Walk 10 feet (QC): 2 Gait Assistive Device: FWW flexed knees and trunk in stand with FWW/VC's to advance LE's to ambulate/able to clear feet 75% of the time with gait training. Patient does fatigue and has increase in LE's shaking Exercises Seated Therapy Exercises: Long arc quads Seated Reps: 15 Assessment Patient more alert and improved on this date. Patient performed gait training 20' x 4 with assist of 2 for safety due to patient weakness. Patient able to follow direction on this date. Continues to require a sitter. PT Short Term Goals Short Term Goals Time Frame: Jan 05, 2021 PT Business Continuity Consultant Goals Business Continuity Consultant Goals PT [facility] Goals Time Frame: Jan 12, 2021 Roll Left & Right (QC): 4 Sit to Lying (QC): 4 Lying-Sitting on Side/Bed(QC): 4 Sit to Stand (QC): 4 Chair/Rdq-uu-Ypfkn Xfer(QC): 4 Toilet Transfer (QC): 4 Does the Patient Walk: No and Walking Goal IS indicated Walk 10 feet (QC): 3 Walk 50ft with 2 Turns (QC): 3 PT Plan Treatment/Plan Treatment Plan: Continue Plan of Care Treatment Plan: Bed Mobility, Education, Functional Activity Jem, Functional Strength, Group Therapy, Gait, Safety, Therapeutic Exercise, Transfers Treatment Duration: Mar 02, 2021 Frequency: 6 times per week Estimated Hrs Per Day: .25 hour per day Time/GCodes Time In: 920 Time Out: 955 Total Billed Treatment Time: 35 Total Billed Treatment 1 visit GT x 2 35 min ALIZE GALDAMEZ PT Jan 07, 2021 10:12
[2021-01-07] MEDS: PYRIDOXINE (VITAMIN B-6) 50 MG TABLET PO SCH (10:40)
--- NOTE | 2021-01-07 12:02 | Progress Note - Hospitalist ---
Subjective HPI/CC On Admission Date Seen by Provider: Jan 07, 2021 Time Seen by Provider: 10:30 Mr. Salinas is a 50-year-old white male presented to the office at his 's insistence who accompanied him due to a recent history of falls. He reports his first fall on November 14 at which time he injured his low back. Following that time he has noted numbness in his legs and has had for 5 subsequent falls none from height. He denied headache but reported generalized weakness. He admitted to longstanding heavy alcohol consumption for which he reports he drinks Granda light 3-4 sixpacks per day. It has been 7 years since his last office visit and he only came in because of his 's insistence. Ports his appetite has been poor and he thinks he is probably lost 20 to 30 pounds by our office scales compared to 7 years ago he is down 40 pounds. He reports some nausea denies abdominal pain denies orange urine and he does not recall the last period of time he left without heavy alcohol consumption. 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 He reports onset of a tremor for at least the past several months worse with action less so at rest and notin g that when he drinks his tremor goes away he denies knowledge of any family history for tremor essential or Parkinson's disease. He denies night sweats chills fever orthopnea PND or pedal edema and denies abdominal distention is noted no melena or bright red blood per rectum. Subjective/Events-last exam He is sitting in his chair. He remains confused. He denies pain. He denies trouble breathing. He was able to get up and walk with physical therapy. Objective Exam Vital Signs Vital Signs Date Time Temp Pulse Resp B/P (MAP) Pulse Ox O2 Delivery O2 Flow Rate FiO2 01/07/21 08:00 36.9 92 16 133/82 (99) 96 Room Air 01/01/21 04:00 5.00 Capillary Refill : Less Than 3 Seconds General Appearance: No Apparent Distress, Chronically ill, Thin Respiratory: Lungs Clear, Normal Breath Sounds, No Respiratory Distress Cardiovascular: Regular Rate, Rhythm, No Edema, No Murmur Gastrointestinal: Normal Bowel Sounds, Non Tender, Soft Extremity: Normal Inspection, Non Tender, No Pedal Edema Neurologic/Psychiatric: Alert, Disoriented Skin: Normal Color, Warm/Dry Results/Procedures Lab Patient resulted labs reviewed. 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 Alcohol withdrawal with perceptual disturbance Alcohol dependence Alcohol myopathy Obstructive sleep apnea Continue vitamins and supplements Ativan increased again s/p phenobarbital Continue Risperdal PT/OT SW consulted, appreciate assistance IRU unable to accept with sitter UTI Macrobid DVT prophylaxis: Lovenox Alcoholic hepatitis, resolved Hyponatremia, resolved Hypokalemia, resolved Tachycardia, resolved Diagnosis/Problems Diagnosis/Problems (1) Wernicke-Korsakoff syndrome (alcoholic) Status: Acute (2) Alcohol withdrawal Status: Acute Qualifiers: Complication of substance-induced condition: with perceptual disturbance Qualified Codes: F10.232 - Alcohol dependence with withdrawal with perceptual disturbance (3) Alcohol dependence Status: Acute Qualifiers: Substance use status: in withdrawal Complication of substance-induced condition: with perceptual disturbance Qualified Codes: F10.232 - Alcohol dependence with withdrawal with perceptual disturbance (4) Alcoholic hepatitis without ascites Status: Resolved Resolution Date/Time: 12/24/20 @ 12:41 (5) Alcohol myopathy Status: Acute (6) Recurrent falls Status: Acute (7) UTI (urinary tract infection) Status: Acute ANIL WYATT MD Jan 07, 2021 12:02
[2021-01-07 15:17] VITALS: BP 118/74
--- NOTE | 2021-01-07 15:20 | Anesthesia-Procedure Note ---
Procedures/Interventions Procedure Start/Stop/Diagnosis Date of Procedure: Jan 07, 2021 Start Time: 14:40 Referring Physician: Joanne Preprocedural Diagnosis: Alt LOC, ETOH withdrawal Brief History Called by house superintendent for LP on pt admitted with altered LOC and ETOH withdrawal. Brief hx obtained from RN and chart. The most recent MRI was negative. Labs and medications reviewed. RN confirmed last Lovenox dose was late yesterday afternoon. Procedure was explained to pt and he tolerated well despite significant confusion. Consent for LP from . Pt. was not oriented to person place or time. With RN assistance, pt was turned on to left side and positioned. Betadine prep x3. Lidocaine plain 5cc to Lumbar 4-5 interspace. #22 g quicke spinal needle introduced with re-redirect x3. Clear CSF fluid obtained very slowly with opening pressure of 9 cmH20. I was able to obtain 4 separate samples but only 1cc in each tube. Needle was withdrawn and band aid applied. Instructed pt and RN to lay supine for at least an hour. No complication noted. Stop Time: 15:10 Postprocedural Diagnosis: Alt LOC, ETOH withdrawal Lumbar Puncture Discussed Risk,Benefits: Yes Patient Consents: Yes Position: Lying, L3-4, Left Sterile Technique: Yes Opening Pressure: 9 Fluid Color: Clear Spinal Needle Used: Other (22g Quicke) JOVANNA MOSS CRNA Jan 07, 2021 15:20
[2021-01-07 15:45] LABS: APPEARANCE,CSF CLEAR; COLOR,CSF COLORLESS; CSF TUBE NUMBER 4; RED BLOOD CELL,CSF 1 CELLS (0-0); WHITE BLOOD CELL,CSF 1 CELLS (0-5)
[2021-01-07] MEDS: LORazepam 1 MG (ATIVAN) TAB PO PRN (17:36)
[2021-01-07] MEDS: ENOXAPARIN 40 MG/0.4 ML (LOVENOX) SYR SC SCH (17:37)
[2021-01-07] MEDS: polyethylene glycoL POWDER 17 GM (MIRALAX) PACK PO SCH (20:04)
[2021-01-07 23:37] VITALS: BP 122/78
[2021-01-08] MEDS: LORazepam INJ 2 MG/ML (ATIVAN) VIAL IV PRN ×2 (00:31→22:22)
[2021-01-08] MEDS: THIAMINE 100 MG (VITAMIN B-1) TAB PO SCH (06:08)
[2021-01-08 08:00] VITALS: BP 130/89
--- NOTE | 2021-01-08 08:41 | Physical Therapy Progress Note ---
Therapy Progress Note Patient sleeping soundly. Live sitter and telesitter present. PT attempt x 2. ALIZE GALDAMEZ PT Jan 08, 2021 08:41
[2021-01-08] MEDS: FOLIC ACID 1 MG TAB PO SCH (09:27)
[2021-01-08] MEDS: polyethylene glycoL POWDER 17 GM (MIRALAX) PACK PO PRN (09:28)
[2021-01-08] MEDS: DOCUSATE SODIUM 100 MG (COLACE) CAP PO SCH ×2 (09:28→19:25)
[2021-01-08] MEDS: SENNA W/DOCUSATE (SENOKOT S) TABLET PO PRN (09:28)
[2021-01-08] MEDS: LORazepam 1 MG (ATIVAN) TAB PO SCH ×3 (09:28→19:35)
[2021-01-08] MEDS: meTOprolol TARTRATE 50 MG (LOPRESSOR) TAB PO SCH ×2 (09:28→19:14)
[2021-01-08] MEDS: risperiDONE 1 MG (RisperDAL) TAB PO SCH ×2 (09:28→19:25)
[2021-01-08] MEDS: PYRIDOXINE (VITAMIN B-6) 50 MG TABLET PO SCH (09:35)
--- NOTE | 2021-01-08 13:12 | Progress Note - Hospitalist ---
Subjective HPI/CC On Admission Date Seen by Provider: Jan 08, 2021 Time Seen by Provider: 11:55 Mr. Salinas is a 50-year-old white male presented to the office at his 's insistence who accompanied him due to a recent history of falls. He reports his first fall on November 14 at which time he injured his low back. Following that time he has noted numbness in his legs and has had for 5 subsequent falls none from height. He denied headache but reported generalized weakness. He admitted to longstanding heavy alcohol consumption for which he reports he drinks Granda light 3-4 sixpacks per day. It has been 7 years since his last office visit and he only came in because of his 's insistence. Ports his appetite has been poor and he thinks he is probably lost 20 to 30 pounds by our office scales compared to 7 years ago he is down 40 pounds. He reports some nausea denies abdominal pain denies orange urine and he does not recall the last period of time he left without heavy alcohol consumption. 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 He reports onset of a tremor for at least the past several months worse with action less so at rest and notin g that when he drinks his tremor goes away he denies knowledge of any family history for tremor essential or Parkinson's disease. He denies night sweats chills fever orthopnea PND or pedal edema and denies abdominal distention is noted no melena or bright red blood per rectum. Subjective/Events-last exam He remains confused. He has had no improvement after the lumbar puncture. He denies any pain. He denies any shortness of breath. Objective Exam Vital Signs Vital Signs Date Time Temp Pulse Resp B/P (MAP) Pulse Ox O2 Delivery O2 Flow Rate FiO2 01/08/21 12:54 94 01/08/21 09:18 Room Air 01/08/21 08:00 35.9 20 130/89 (103) 97 Capillary Refill : Less Than 3 Seconds General Appearance: No Apparent Distress, Chronically ill, Thin Respiratory: Lungs Clear, Normal Breath Sounds, No Respiratory Distress Cardiovascular: Regular Rate, Rhythm, No Edema, No Murmur Gastrointestinal: Normal Bowel Sounds, Non Tender, Soft Extremity: Normal Inspection, Non Tender, No Pedal Edema Neurologic/Psychiatric: Alert, Oriented x3, No Motor/Sensory Deficits, Normal Mood/Affect Skin: Normal Color, Warm/Dry Results/Procedures Lab Patient resulted labs reviewed. 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 Alcohol withdrawal with perceptual disturbance Alcohol dependence Alcohol myopathy Obstructive sleep apnea Continue vitamins and supplements Ativan as needed s/p phenobarbital Continue Risperdal PT/OT SW consulted, appreciate assistance Will likely require placement DVT prophylaxis: Lovenox Alcoholic hepatitis, resolved Hyponatremia, resolved Hypokalemia, resolved Tachycardia, resolved UTI, resolved Diagnosis/Problems Diagnosis/Problems (1) Wernicke-Korsakoff syndrome (alcoholic) Status: Acute (2) Alcohol withdrawal Status: Acute Qualifiers: Complication of substance-induced condition: with perceptual disturbance Qualified Codes: F10.232 - Alcohol dependence with withdrawal with perceptual disturbance (3) Alcohol dependence Status: Acute Qualifiers: Substance use status: in withdrawal Complication of substance-induced condition: with perceptual disturbance Qualified Codes: F10.232 - Alcohol dependence with withdrawal with perceptual disturbance (4) Alcoholic hepatitis without ascites Status: Resolved Resolution Date/Time: 12/24/20 @ 12:41 (5) Alcohol myopathy Status: Acute (6) Recurrent falls Status: Acute (7) UTI (urinary tract infection) Status: Acute ANIL WYATT MD Jan 08, 2021 13:12
[2021-01-08] MEDS: LORazepam 1 MG (ATIVAN) TAB PO PRN ×2 (14:41→17:56)
[2021-01-08] MEDS: ENOXAPARIN 40 MG/0.4 ML (LOVENOX) SYR SC SCH (16:07)
[2021-01-08 16:21] VITALS: BP 120/75
[2021-01-08 19:14] VITALS: BP 113/70
[2021-01-08] MEDS: polyethylene glycoL POWDER 17 GM (MIRALAX) PACK PO SCH (19:25)
[2021-01-08 23:27] VITALS: BP 121/82
[2021-01-09] MEDS: LORazepam 1 MG (ATIVAN) TAB PO PRN ×2 (02:18→23:37)
[2021-01-09] MEDS: THIAMINE 100 MG (VITAMIN B-1) TAB PO SCH (05:56)
[2021-01-09 07:45] VITALS: BP 117/77
[2021-01-09] MEDS: LORazepam 1 MG (ATIVAN) TAB PO SCH ×3 (08:37→19:17)
[2021-01-09] MEDS: FOLIC ACID 1 MG TAB PO SCH (08:37)
[2021-01-09] MEDS: DOCUSATE SODIUM 100 MG (COLACE) CAP PO SCH ×2 (08:37→19:16)
[2021-01-09] MEDS: risperiDONE 1 MG (RisperDAL) TAB PO SCH ×2 (08:37→19:17)
[2021-01-09] MEDS: LORazepam INJ 2 MG/ML (ATIVAN) VIAL IV PRN ×2 (08:37→11:36)
[2021-01-09] MEDS: meTOprolol TARTRATE 50 MG (LOPRESSOR) TAB PO SCH ×2 (08:37→19:17)
[2021-01-09] MEDS: PYRIDOXINE (VITAMIN B-6) 50 MG TABLET PO SCH (08:37)
--- NOTE | 2021-01-09 12:59 | Progress Note - Hospitalist ---
Subjective HPI/CC On Admission Date Seen by Provider: Jan 09, 2021 Time Seen by Provider: 10:25 Mr. Salinas is a 50-year-old white male presented to the office at his 's insistence who accompanied him due to a recent history of falls. He reports his first fall on November 14 at which time he injured his low back. Following that time he has noted numbness in his legs and has had for 5 subsequent falls none from height. He denied headache but reported generalized weakness. He admitted to longstanding heavy alcohol consumption for which he reports he drinks Granda light 3-4 sixpacks per day. It has been 7 years since his last office visit and he only came in because of his 's insistence. Ports his appetite has been poor and he thinks he is probably lost 20 to 30 pounds by our office scales compared to 7 years ago he is down 40 pounds. He reports some nausea denies abdominal pain denies orange urine and he does not recall the last period of time he left without heavy alcohol consumption. 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 He reports onset of a tremor for at least the past several months worse with action less so at rest and notin g that when he drinks his tremor goes away he denies knowledge of any family history for tremor essential or Parkinson's disease. He denies night sweats chills fever orthopnea PND or pedal edema and denies abdominal distention is noted no melena or bright red blood per rectum. Subjective/Events-last exam He remains confused. He is alert and conversational. He has no complaints or concerns. Objective Exam Vital Signs Vital Signs Date Time Temp Pulse Resp B/P (MAP) Pulse Ox O2 Delivery O2 Flow Rate FiO2 01/09/21 12:49 95 01/09/21 08:00 Room Air 01/09/21 07:45 36.2 18 117/77 (90) 98 Capillary Refill : Less Than 3 Seconds General Appearance: No Apparent Distress, Chronically ill Respiratory: Lungs Clear, Normal Breath Sounds, No Respiratory Distress Cardiovascular: Regular Rate, Rhythm, No Edema, No Murmur Gastrointestinal: Normal Bowel Sounds, Non Tender, Soft Extremity: Normal Inspection, Non Tender, No Pedal Edema Neurologic/Psychiatric: Alert, Normal Mood/Affect, Disoriented, Motor Weakness Skin: Normal Color, Warm/Dry Results/Procedures Lab Patient resulted labs reviewed. 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 Alcohol withdrawal with perceptual disturbance Alcohol dependence Alcohol myopathy Obstructive sleep apnea Lumbar puncture unrevealing, no improvement CSF VDRL pending Continue vitamins and supplements Ativan as needed s/p phenobarbital Continue Risperdal PT/OT SW consulted, appreciate assistance Will likely require placement DVT prophylaxis: Lovenox Alcoholic hepatitis, resolved Hyponatremia, resolved Hypokalemia, resolved Tachycardia, resolved UTI, resolved Diagnosis/Problems Diagnosis/Problems (1) Wernicke-Korsakoff syndrome (alcoholic) Status: Acute (2) Alcohol withdrawal Status: Acute Qualifiers: Complication of substance-induced condition: with perceptual disturbance Qualified Codes: F10.232 - Alcohol dependence with withdrawal with perceptual disturbance (3) Alcohol dependence Status: Acute Qualifiers: Substance use status: in withdrawal Complication of substance-induced condition: with perceptual disturbance Qualified Codes: F10.232 - Alcohol dependence with withdrawal with perceptual disturbance (4) Alcoholic hepatitis without ascites Status: Resolved Resolution Date/Time: 12/24/20 @ 12:41 (5) Alcohol myopathy Status: Acute (6) Recurrent falls Status: Acute (7) UTI (urinary tract infection) Status: Acute ANIL WYATT MD Jan 09, 2021 12:59
[2021-01-09 15:49] VITALS: BP 121/68
[2021-01-09] MEDS: ENOXAPARIN 40 MG/0.4 ML (LOVENOX) SYR SC SCH (17:02)
[2021-01-09 19:04] VITALS: BP 132/79
[2021-01-09] MEDS: polyethylene glycoL POWDER 17 GM (MIRALAX) PACK PO SCH (19:16)
[2021-01-09 23:22] VITALS: BP 114/79
[2021-01-10] MEDS: LORazepam INJ 2 MG/ML (ATIVAN) VIAL IV PRN ×3 (00:28→09:06)
[2021-01-10] MEDS: THIAMINE 100 MG (VITAMIN B-1) TAB PO SCH (06:07)
[2021-01-10 08:00] VITALS: BP 137/86
[2021-01-10] MEDS: FOLIC ACID 1 MG TAB PO SCH (08:23)
[2021-01-10] MEDS: meTOprolol TARTRATE 50 MG (LOPRESSOR) TAB PO SCH ×2 (08:23→20:05)
[2021-01-10] MEDS: LORazepam 1 MG (ATIVAN) TAB PO SCH ×3 (08:23→20:05)
[2021-01-10] MEDS: PYRIDOXINE (VITAMIN B-6) 50 MG TABLET PO SCH (08:23)
[2021-01-10] MEDS: DOCUSATE SODIUM 100 MG (COLACE) CAP PO SCH ×2 (08:23→20:05)
[2021-01-10] MEDS: risperiDONE 1 MG (RisperDAL) TAB PO SCH ×2 (08:23→20:05)
--- NOTE | 2021-01-10 10:21 | Physical Therapy Daily Note ---
PT Daily Note-Current Subjective Patient very confused today with increase difficulty with following direction and remaining on task. Mental Status Patient Orientation: Confused Transfers SCALE: Activities may be completed with or without assistive devices. 6-Yszzmdkolj-iojmlyw completes the activity by him/herself with no assistance from a helper. 5-Set-up or Clean-up Assistance-helper sets up or cleans up; patient completes activity. [place] assists only prior to or following the activity. 4-Supervision or Touching Assistance-helper provides verbal cues and/or touching/steadying and/or contact guard assistance as patient completes activity. Assistance may be provided throughout the activity or intermittently. 3-Partial/Moderate Assistance-helper does LESS THAN HALF the effort. [place] lifts, holds or supports trunk or limbs, but provides less than half the effort. 2-Substantial/Maximal Assistance-helper does MORE THAN HALF the effort. [place] lifts or holds trunk or limbs and provides more than half the effort. 2-Xakqzhcsf-tazjhq does ALL the effort. Patient does none of the effort to complete the activity. Or, the assistance of 2 or more helpers is required for the patient to complete the activity. If activity was not attempted, code reason: 7-Patient Refused. 9-Not Applicable-not attempted and the patient did not perform the activity before the current illness, exacerbation or injury. 10-Not Attempted due to Environmental Limitations-(lack of equipment, weather restraints, etc.). 88-Not Attempted due to Medical Conditions or Safety Concerns. Lying to Sitting/Side of Bed(Q: 2 Sit to Stand (QC): 2 Chair/Djd-vt-Omlqx Xfer(QC): 2 Toilet Transfer (QC): 2 patient very resistive with sit to stand and SPT due to inability to follow direction Weight Bearing Right Lower Extremity: Right Full Weight Bearing Left Lower Extremity: Left Full Weight Bearing Exercises Seated Therapy Exercises: Ankle pumps, Long arc quads, Hip flexion Seated Reps: 15 (2 sets) Treatments Patient performed sit to stand to FWW x 8 reps with increase retropulsion and inability to stand on this date. Patient transferred to [facility] twice because patient said he had to "poop". AROM bilateral LE with PT counting. Assessment Patient unable to motor plan on this date to perform gait training. PT to continue to address gross motor skills as patient tolerates. PT Short Term Goals Short Term Goals Time Frame: Jan 05, 2021 PT Shelter Goals Shelter Goals PT Shelter Goals Time Frame: Jan 12, 2021 Roll Left & Right (QC): 4 Sit to Lying (QC): 4 Lying-Sitting on Side/Bed(QC): 4 Sit to Stand (QC): 4 Chair/Vsd-qy-Gjfnl Xfer(QC): 4 Toilet Transfer (QC): 4 Does the Patient Walk: No and Walking Goal IS indicated Walk 10 feet (QC): 3 Walk 50ft with 2 Turns (QC): 3 PT Plan Treatment/Plan Treatment Plan: Continue Plan of Care Treatment Plan: Bed Mobility, Education, Functional Activity Jem, Functional Strength, Group Therapy, Gait, Safety, Therapeutic Exercise, Transfers Treatment Duration: Mar 02, 2021 Frequency: 6 times per week Estimated Hrs Per Day: .25 hour per day Time/GCodes Time In: 905 Time Out: 950 Total Billed Treatment Time: 45 Total Billed Treatment 1 visit FA x 2 45 min ALIZE GALDAMEZ PT Jan 10, 2021 10:21
[2021-01-10 12:06] LABS: HEMATOCRIT 44 % (40-54); HEMOGLOBIN 14.8 g/dL (13.3-17.7); MEAN CORPUSCULAR HEMOGLOBIN 33 pg (25-34); MEAN CORPUSCULAR HGB CONC 34 g/dL (32-36); MEAN CORPUSCULAR VOLUME 98 fL (80-99); MEAN PLATELET VOLUME 10.1 fL (9.0-12.2); PLATELET COUNT 320 10^3/uL (130-400); WHITE BLOOD COUNT 8.2 10^3/uL (4.3-11.0)
[2021-01-10 12:29] LABS: CALCIUM 9.9 MG/DL (8.5-10.1); CREATININE SERUM 0.77 MG/DL (0.60-1.30); POTASSIUM 4.3 MMOL/L (3.6-5.0)
--- NOTE | 2021-01-10 13:12 | Progress Note - Hospitalist ---
Subjective HPI/CC On Admission Date Seen by Provider: Jan 10, 2021 Time Seen by Provider: 13:07 Mr. Salinas is a 50-year-old white male presented to the office at his 's insistence who accompanied him due to a recent history of falls. He reports his first fall on November 14 at which time he injured his low back. Following that time he has noted numbness in his legs and has had for 5 subsequent falls none from height. He denied headache but reported generalized weakness. He admitted to longstanding heavy alcohol consumption for which he reports he drinks Granda light 3-4 sixpacks per day. It has been 7 years since his last office visit and he only came in because of his 's insistence. Ports his appetite has been poor and he thinks he is probably lost 20 to 30 pounds by our office scales compared to 7 years ago he is down 40 pounds. He reports some nausea denies abdominal pain denies orange urine and he does not recall the last period of time he left without heavy alcohol consumption. 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 He reports onset of a tremor for at least the past several months worse with action less so at rest and noting that when he drinks his tremor goes away he denies knowledge of any family history for tremor essential or Parkinson's disease. He denies night sweats chills fever orthopnea PND or pedal edema and denies abdominal distention is noted no melena or bright red blood per rectum. Subjective/Events-last exam Pt laying in bed. No complaints. Still confused. Appears somewhat sedated compared to the last time I saw him. Objective Exam Vital Signs Vital Signs Date Time Temp Pulse Resp B/P (MAP) Pulse Ox O2 Delivery O2 Flow Rate FiO2 01/10/21 12:22 96 01/10/21 08:00 35.8 20 137/86 (103) 99 Room Air Capillary Refill : Less Than 3 Seconds General Appearance: No Apparent Distress Respiratory: Lungs Clear, No Respiratory Distress Cardiovascular: Regular Rate, Rhythm, No Murmur Extremity: No Calf Tenderness, No Pedal Edema Neurologic/Psychiatric: Alert, Disoriented Results/Procedures Lab Laboratory Tests 01/10/21 11:57 Patient resulted labs reviewed. 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 Alcohol withdrawal with perceptual disturbance Alcohol dependence Alcohol myopathy Obstructive sleep apnea Lumbar puncture unrevealing, no improvement CSF VDRL pending Continue vitamins and supplements Ativan as needed s/p phenobarbital Continue Risperdal PT/OT SW consulted, appreciate assistance Will likely require placement vs [facility] placement Discussed with Dr Meek who is in agreement with that plan and has been keeping in contact with pt's I attempted to call patient's and there was no answer. Voicemail with no identifying info so no voicemail left. DVT prophylaxis: Lovenox Alcoholic hepatitis, resolved Hyponatremia, resolved Hypokalemia, resolved Tachycardia, resolved UTI, resolved STACI MCNAMARA MD Jan 10, 2021 13:12
[2021-01-10] MEDS: ENOXAPARIN 40 MG/0.4 ML (LOVENOX) SYR SC SCH (15:34)
[2021-01-10] MEDS: polyethylene glycoL POWDER 17 GM (MIRALAX) PACK PO SCH (20:06)
[2021-01-10] MEDS: LORazepam 1 MG (ATIVAN) TAB PO PRN (23:34)
[2021-01-10 23:52] VITALS: BP 133/83
[2021-01-11] MEDS: LORazepam 1 MG (ATIVAN) TAB PO PRN (03:02)
[2021-01-11] MEDS: THIAMINE 100 MG (VITAMIN B-1) TAB PO SCH (05:51)
[2021-01-11 06:58] VITALS: BP 127/84
[2021-01-11 07:00] VITALS: BP 127/84
[2021-01-11] MEDS: LORazepam 1 MG (ATIVAN) TAB PO SCH ×3 (09:08→20:18)
[2021-01-11] MEDS: meTOprolol TARTRATE 50 MG (LOPRESSOR) TAB PO SCH ×2 (09:08→20:18)
[2021-01-11] MEDS: risperiDONE 1 MG (RisperDAL) TAB PO SCH ×2 (09:08→20:18)
[2021-01-11] MEDS: DOCUSATE SODIUM 100 MG (COLACE) CAP PO SCH ×2 (09:08→21:16)
[2021-01-11] MEDS: FOLIC ACID 1 MG TAB PO SCH (09:08)
[2021-01-11] MEDS: PYRIDOXINE (VITAMIN B-6) 50 MG TABLET PO SCH (09:12)
--- NOTE | 2021-01-11 10:13 | Physical Therapy Daily Note ---
PT Daily Note-Current Subjective Patient more alert today. Mental Status Patient Orientation: Confused Transfers SCALE: Activities may be completed with or without assistive devices. 5-Jfaquqrndq-wbhpytl completes the activity by him/herself with no assistance from a helper. 5-Set-up or Clean-up Assistance-helper sets up or cleans up; patient completes activity. [place] assists only prior to or following the activity. 4-Supervision or Touching Assistance-helper provides verbal cues and/or touching/steadying and/or contact guard assistance as patient completes activity. Assistance may be provided throughout the activity or intermittently. 3-Partial/Moderate Assistance-helper does LESS THAN HALF the effort. [place] lifts, holds or supports trunk or limbs, but provides less than half the effort. 2-Substantial/Maximal Assistance-helper does MORE THAN HALF the effort. [place] lifts or holds trunk or limbs and provides more than half the effort. 0-Zyaeizcmf-tbqdwv does ALL the effort. Patient does none of the effort to complete the activity. Or, the assistance of 2 or more helpers is required for the patient to complete the activity. If activity was not attempted, code reason: 7-Patient Refused. 9-Not Applicable-not attempted and the patient did not perform the activity before the current illness, exacerbation or injury. 10-Not Attempted due to Environmental Limitations-(lack of equipment, weather restraints, etc.). 88-Not Attempted due to Medical Conditions or Safety Concerns. Lying to Sitting/Side of Bed(Q: 2 Sit to Stand (QC): 3 Chair/Slj-vv-Skfef Xfer(QC): 3 Weight Bearing Right Lower Extremity: Right Full Weight Bearing Left Lower Extremity: Left Full Weight Bearing Gait Training Does the Patient Walk?: Yes Distance: 20' x 4 Walk 10 feet (QC): 3 Gait Assistive Device: FWW minimal bilateral foot clearance with shuffle gait sequence. Patient has increase in total body tremor when attempting to stand up erect. Noted bilateral knee and trunk flexed posture with mobility Exercises Seated Therapy Exercises: Ankle pumps, Long arc quads, Hip flexion Seated Reps: 15 Standing: Sit to Stand (x 6 sets) Assessment Patient up in recline with chair alarm activated. Increase activity as patient tolerates. Improved functional mobility on this date. PT Short Term Goals Short Term Goals Time Frame: Jan 05, 2021 PT Assisted Goals Qa Architect Goals PT Qa Architect Goals Time Frame: Jan 12, 2021 Roll Left & Right (QC): 4 Sit to Lying (QC): 4 Lying-Sitting on Side/Bed(QC): 4 Sit to Stand (QC): 4 Chair/Hlt-da-Pulhx Xfer(QC): 4 Toilet Transfer (QC): 4 Does the Patient Walk: No and Walking Goal IS indicated Walk 10 feet (QC): 3 Walk 50ft with 2 Turns (QC): 3 PT Plan Treatment/Plan Treatment Plan: Continue Plan of Care Treatment Plan: Bed Mobility, Education, Functional Activity Jem, Functional Strength, Group Therapy, Gait, Safety, Therapeutic Exercise, Transfers Treatment Duration: Mar 02, 2021 Frequency: 6 times per week Estimated Hrs Per Day: .25 hour per day Time/GCodes Time In: 855 Time Out: 930 Total Billed Treatment Time: 35 Total Billed Treatment 1 visit GT x 2 35 min ALIZE GALDAMEZ PT Jan 11, 2021 10:13
--- NOTE | 2021-01-11 14:59 | Progress Note - Hospitalist ---
Subjective HPI/CC On Admission Date Seen by Provider: Jan 11, 2021 Time Seen by Provider: 14:50 Mr. Salinas is a 50-year-old white male presented to the office at his 's insistence who accompanied him due to a recent history of falls. He reports his first fall on November 14 at which time he injured his low back. Following that time he has noted numbness in his legs and has had for 5 subsequent falls none from height. He denied headache but reported generalized weakness. He admitted to longstanding heavy alcohol consumption for which he reports he drinks Granda light 3-4 sixpacks per day. It has been 7 years since his last office visit and he only came in because of his 's insistence. Ports his appetite has been poor and he thinks he is probably lost 20 to 30 pounds by our office scales compared to 7 years ago he is down 40 pounds. He reports some nausea denies abdominal pain denies orange urine and he does not recall the last period of time he left without heavy alcohol consumption. 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 He reports onset of a tremor for at least the past several months worse with action less so at rest and notin g that when he drinks his tremor goes away he denies knowledge of any family history for tremor essential or Parkinson's disease. He denies night sweats chills fever orthopnea PND or pedal edema and denies abdominal distention is noted no melena or bright red blood per rectum. Subjective/Events-last exam Patient remains confused today but was able to tell me that his is Melissa. He then asked me to talk to "Becki's ." He could not clarify who this is. Awaiting [facility] screen which is scheduled for tomorrow. Dr Meek spoke with yesterday. Objective Exam Vital Signs Vital Signs Date Time Temp Pulse Resp B/P (MAP) Pulse Ox O2 Delivery O2 Flow Rate FiO2 01/11/21 08:00 Room Air 01/11/21 07:00 36.0 84 20 127/84 (98) 98 Capillary Refill : Less Than 3 Seconds General Appearance: No Apparent Distress, Chronically ill Cardiovascular: Regular Rate, Rhythm, No Murmur Neurologic/Psychiatric: Alert, Oriented x3 Results/Procedures Lab Patient resulted labs reviewed. 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 Alcohol withdrawal with perceptual disturbance Alcohol dependence Alcohol myopathy Obstructive sleep apnea Lumbar puncture unrevealing, no improvement CSF VDRL pending Will get EBV panel, unable to get enceph Continue vitamins and supplements Ativan as needed s/p phenobarbital Continue Risperdal PT/OT SW consulted, appreciate assistance Will likely require placement vs [facility] placement Discussed with Dr Meek who is in agreement with that plan and has been keeping in contact with pt's - he spoke to her today I spoke with yesterday who is in agreement with plan for [facility] screening and if not placement at [facility] DVT prophylaxis: Lovenox Alcoholic hepatitis, resolved Hyponatremia, resolved Hypokalemia, resolved Tachycardia, resolved UTI, resolved STACI MCNAMARA MD Jan 11, 2021 14:59
[2021-01-11 15:05] VITALS: BP 115/73
[2021-01-11] MEDS: ENOXAPARIN 40 MG/0.4 ML (LOVENOX) SYR SC SCH (17:54)
[2021-01-11] MEDS: polyethylene glycoL POWDER 17 GM (MIRALAX) PACK PO SCH (19:23)
[2021-01-12] VITALS: BP_SYST 131; BP_SYST 148; BP_DIAS 65; BP_DIAS 85
[2021-01-12] MEDS: THIAMINE 100 MG (VITAMIN B-1) TAB PO SCH (06:58)
[2021-01-12 08:00] VITALS: BP 129/87
[2021-01-12] MEDS: risperiDONE 1 MG (RisperDAL) TAB PO SCH ×2 (09:13→19:40)
[2021-01-12] MEDS: FOLIC ACID 1 MG TAB PO SCH (09:13)
[2021-01-12] MEDS: LORazepam 1 MG (ATIVAN) TAB PO SCH ×3 (09:14→19:40)
[2021-01-12] MEDS: meTOprolol TARTRATE 50 MG (LOPRESSOR) TAB PO SCH ×2 (09:14→19:40)
[2021-01-12] MEDS: DOCUSATE SODIUM 100 MG (COLACE) CAP PO SCH ×2 (09:14→19:40)
--- NOTE | 2021-01-12 09:48 | Physical Therapy Daily Note ---
PT Daily Note-Current Subjective Pt in bed w/ live sitter and tele sitter in room and agrees to tx. Mental Status Patient Orientation: Person, Confused Transfers SCALE: Activities may be completed with or without assistive devices. 3-Nyahfhnqtp-naidcyd completes the activity by him/herself with no assistance from a helper. 5-Set-up or Clean-up Assistance-helper sets up or cleans up; patient completes activity. [place] assists only prior to or following the activity. 4-Supervision or Touching Assistance-helper provides verbal cues and/or touching/steadying and/or contact guard assistance as patient completes activity. Assistance may be provided throughout the activity or intermittently. 3-Partial/Moderate Assistance-helper does LESS THAN HALF the effort. [place] lifts, holds or supports trunk or limbs, but provides less than half the effort. 2-Substantial/Maximal Assistance-helper does MORE THAN HALF the effort. [place] lifts or holds trunk or limbs and provides more than half the effort. 5-Jlikhnmbz-zcfkal does ALL the effort. Patient does none of the effort to complete the activity. Or, the assistance of 2 or more helpers is required for the patient to complete the activity. If activity was not attempted, code reason: 7-Patient Refused. 9-Not Applicable-not attempted and the patient did not perform the activity before the current illness, exacerbation or injury. 10-Not Attempted due to Environmental Limitations-(lack of equipment, weather restraints, etc.). 88-Not Attempted due to Medical Conditions or Safety Concerns. Lying to Sitting/Side of Bed(Q: 3 Pt able to advance B LE to EOB, but grabbed PT hand to sit upright. Weight Bearing Right Lower Extremity: Right Full Weight Bearing Left Lower Extremity: Left Full Weight Bearing Gait Training Does the Patient Walk?: Yes Distance: 20', 15' Walk 10 feet (QC): 3 Gait Assistive Device: FWW Pt exhibits wide, shuffling gait pattern w/ poor B foot clearance. Pt requires ModA for amb, and A for guiding FWW. Treatments Pt supine to sit and instructed to sit to stand, pt unable to comprehend instructions at this time. PT explains to pt to push up from bed and stand up, so pt can use bathroom. Pt sit to stand, B flexed knees and hips, and sits back onto bed. Pt sit to stand again, and amb to bathroom. Pt requires A to doff/don pants and clean self. Pt amb to recliner in room, left with all needs met, call light in hand and chair alarm on. Assessment Current Status: Fair Progress Pt extremely confused, requires Max VC/TC for directions. Pt unable to guide FWW throughout amb. PT Short Term Goals Short Term Goals Time Frame: Jan 05, 2021 PT Snf Goals Snf Goals PT Mid Level Clinician Goals Time Frame: Jan 12, 2021 Roll Left & Right (QC): 4 Sit to Lying (QC): 4 Lying-Sitting on Side/Bed(QC): 4 Sit to Stand (QC): 4 Chair/Oqz-na-Ofmgc Xfer(QC): 4 Toilet Transfer (QC): 4 Does the Patient Walk: No and Walking Goal IS indicated Walk 10 feet (QC): 3 Walk 50ft with 2 Turns (QC): 3 PT Plan Treatment/Plan Treatment Plan: Continue Plan of Care Treatment Plan: Bed Mobility, Education, Functional Activity Jem, Functional Strength, Group Therapy, Gait, Safety, Therapeutic Exercise, Transfers Treatment Duration: Mar 02, 2021 Frequency: 6 times per week Estimated Hrs Per Day: .25 hour per day Time/GCodes Time In: 856 Time Out: 912 Total Billed Treatment Time: 16 Total Billed Treatment 1, GT EDEPA GALVAN LABOR RELATIONS WORKER Jan 12, 2021 09:48
[2021-01-12] MEDS: PYRIDOXINE (VITAMIN B-6) 50 MG TABLET PO SCH (10:51)
--- NOTE | 2021-01-12 13:10 | Progress Note - Hospitalist ---
Subjective HPI/CC On Admission Date Seen by Provider: Jan 12, 2021 Time Seen by Provider: 13:08 Mr. Salinas is a 50-year-old white male presented to the office at his 's insistence who accompanied him due to a recent history of falls. He reports his first fall on November 14 at which time he injured his low back. Following that time he has noted numbness in his legs and has had for 5 subsequent falls none from height. He denied headache but reported generalized weakness. He admitted to longstanding heavy alcohol consumption for which he reports he drinks Granda light 3-4 sixpacks per day. It has been 7 years since his last office visit and he only came in because of his 's insistence. Ports his appetite has been poor and he thinks he is probably lost 20 to 30 pounds by our office scales compared to 7 years ago he is down 40 pounds. He reports some nausea denies abdominal pain denies orange urine and he does not recall the last period of time he left without heavy alcohol consumption. 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 He reports onset of a tremor for at least the past several months worse with action less so at rest and notin g that when he drinks his tremor goes away he denies knowledge of any family history for tremor essential or Parkinson's disease. He denies night sweats chills fever orthopnea PND or pedal edema and denies abdominal distention is noted no melena or bright red blood per rectum. Subjective/Events-last exam Pt is up in his chair today. Knows his name is Agusto and that he's in [place]. Was unable to tell me the year. Was screened by [facility] this AM and denied. SLUMS was a 6 on their testing. Objective Exam Vital Signs Vital Signs Date Time Temp Pulse Resp B/P (MAP) Pulse Ox O2 Delivery O2 Flow Rate FiO2 01/12/21 08:00 36.6 117 20 129/87 (101) 99 Room Air Capillary Refill : Less Than 3 Seconds General Appearance: No Apparent Distress, Chronically ill Respiratory: Lungs Clear, No Respiratory Distress Cardiovascular: Regular Rate, Rhythm, No Murmur Neurologic/Psychiatric: Alert, Oriented x3 Results/Procedures Lab Patient resulted labs reviewed. 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 Alcohol withdrawal with perceptual disturbance Alcohol dependence Alcohol myopathy Obstructive sleep apnea Lumbar puncture unrevealing, no improvement CSF VDRL negative Will get EBV panel, unable to get encephaltis panelon CSF as was no longer available at [facility] Continue vitamins and supplements Ativan as needed s/p phenobarbital Continue Risperdal PT/OT SW consulted, appreciate assistance Will require placement, declined by [facility] DVT prophylaxis: Lovenox Alcoholic hepatitis, resolved Hyponatremia, resolved Hypokalemia, resolved Tachycardia, resolved UTI, resolved STACI MCNAMARA MD Jan 12, 2021 13:10
[2021-01-12] MEDS: ENOXAPARIN 40 MG/0.4 ML (LOVENOX) SYR SC SCH (14:41)
[2021-01-12 15:31] VITALS: BP 103/59
[2021-01-12] MEDS: polyethylene glycoL POWDER 17 GM (MIRALAX) PACK PO SCH (19:41)
[2021-01-12 23:23] VITALS: BP 120/91
[2021-01-13] MEDS: LORazepam 1 MG (ATIVAN) TAB PO PRN (01:42)
[2021-01-13] MEDS: THIAMINE 100 MG (VITAMIN B-1) TAB PO SCH (06:23)
[2021-01-13 08:13] VITALS: BP 129/68
[2021-01-13] MEDS: FOLIC ACID 1 MG TAB PO SCH (09:23)
[2021-01-13] MEDS: DOCUSATE SODIUM 100 MG (COLACE) CAP PO SCH ×2 (09:23→20:00)
[2021-01-13] MEDS: risperiDONE 1 MG (RisperDAL) TAB PO SCH ×2 (09:23→20:00)
[2021-01-13] MEDS: meTOprolol TARTRATE 50 MG (LOPRESSOR) TAB PO SCH ×2 (09:23→20:00)
[2021-01-13] MEDS: LORazepam 1 MG (ATIVAN) TAB PO SCH ×3 (09:23→20:00)
[2021-01-13] MEDS: PYRIDOXINE (VITAMIN B-6) 50 MG TABLET PO SCH (09:24)
--- NOTE | 2021-01-13 10:40 | Physical Therapy Daily Note ---
PT Daily Note-Current Subjective Patient much more alert and able to follow direction on this date. Transfers SCALE: Activities may be completed with or without assistive devices. 1-Aihdetwvxs-nodilbd completes the activity by him/herself with no assistance from a helper. 5-Set-up or Clean-up Assistance-helper sets up or cleans up; patient completes activity. [place] assists only prior to or following the activity. 4-Supervision or Touching Assistance-helper provides verbal cues and/or touching/steadying and/or contact guard assistance as patient completes activ ity. Assistance may be provided throughout the activity or intermittently. 3-Partial/Moderate Assistance-helper does LESS THAN HALF the effort. [place] lifts, holds or supports trunk or limbs, but provides less than half the effort. 2-Substantial/Maximal Assistance-helper does MORE THAN HALF the effort. [place] lifts or holds trunk or limbs and provides more than half the effort. 3-Galhzicmr-anodzg does ALL the effort. Patient does none of the effort to complete the activity. Or, the assistance of 2 or more helpers is required for the patient to complete the activity. If activity was not attempted, code reason: 7-Patient Refused. 9-Not Applicable-not attempted and the patient did not perform the activity before the current illness, exacerbation or injury. 10-Not Attempted due to Environmental Limitations-(lack of equipment, weather restraints, etc.). 88-Not Attempted due to Medical Conditions or Safety Concerns. Lying to Sitting/Side of Bed(Q: 4 (SBA) Sit to Stand (QC): 4 (CGA) Chair/Jtg-ni-Dneap Xfer(QC): 3 (min to mod assist due to patient impulsive to sit due to fatigue) Toilet Transfer (QC): 4 (CGA) Weight Bearing Right Lower Extremity: Right Full Weight Bearing Left Lower Extremity: Left Full Weight Bearing Gait Training Does the Patient Walk?: Yes Distance: 225' Walk 10 feet (QC): 4 Walk 50 ft with 2 Turns(QC): 4 Walk 150 ft (QC): 4 Gait Assistive Device: FWW extended UE's with FWW use with shuffle gait sequence/continues to display flexed trunk and bilateral knees. Assessment Standing recovery periods due to fatigue. Much improved on this date with gross motor skill. Confusion is improving as well with increased ability to follow direction. Easily distracted when multiple people are around and talking. PT Short Term Goals Short Term Goals Time Frame: Jan 05, 2021 PT Bindery Chief Goals Fdc Goals PT Fdc Goals Time Frame: Jan 12, 2021 Roll Left & Right (QC): 4 Sit to Lying (QC): 4 Lying-Sitting on Side/Bed(QC): 4 Sit to Stand (QC): 4 Chair/Gnc-qx-Ivbmp Xfer(QC): 4 Toilet Transfer (QC): 4 Does the Patient Walk: No and Walking Goal IS indicated Walk 10 feet (QC): 3 Walk 50ft with 2 Turns (QC): 3 PT Plan Treatment/Plan Treatment Plan: Continue Plan of Care Treatment Plan: Bed Mobility, Education, Functional Activity Jem, Functional Strength, Group Therapy, Gait, Safety, Therapeutic Exercise, Transfers Treatment Duration: Mar 02, 2021 Frequency: 6 times per week Estimated Hrs Per Day: .25 hour per day Time/GCodes Time In: 947 Time Out: 1010 Total Billed Treatment Time: 23 Total Billed Treatment 1 visit GT x 2 23 min ALZIE GALDAMEZ PT Jan 13, 2021 10:39
[2021-01-13] MEDS: LORazepam INJ 2 MG/ML (ATIVAN) VIAL IVP PRN ×2 (12:40→21:53)
[2021-01-13] MEDS ORDERED: LORazepam INJ 2 MG/ML (ATIVAN) VIAL IVP NR (12:45)
--- NOTE | 2021-01-13 14:09 | Occupational Therapy Eval ---
OT Evaluation-General/PLF Medical Diagnosis Admission Date Dec 20, 2020 at 16:49 Medical Diagnosis: Frequent Falls, EToH abuse Onset Date: Dec 20, 2020 Therapy Diagnosis Therapy Diagnosis: Impaired adls, balance, safety, cognition, endurance Precautions Precautions/Isolations: Seizure, Fall Prevention, Standard Precautions Safety Interventions: Bed Exit Alarm Comments Pt with sitter Referral Physician: Dr. Meek Referral Reason: Evaluation/Treatment Medical History Pertinent Medical History: Alcoholism Current History Pt arrived to ER on 12/20/20 due to multiple falls. Pt is confused at this time and no family is present to verify accuracy of responses. Pt unable to give any details on PLOF. Social History Home: Single Level Current Living Status: Significant Other Entry Into Home: Stairs With Railing Steps Into Home: 2 Steps Inside Home: 13 ADL-Prior Level of Function SCALE: Activities may be completed with or without assistive devices. 2-Iejutwvbhl-xrxrguq completes the activity by him/herself with no assistance from a helper. 5-Set-up or Clean-up Assistance-helper sets up or cleans up; patient completes activity. [place] assists only prior to or following the activity. 4-Supervision or Touching Assistance-helper provides verbal cues and/or touching/steadying and/or contact guard assistance as patient completes activity. Assistance may be provided throughout the activity or intermittently. 3-Partial/Moderate Assistance-helper does LESS THAN HALF the effort. [place] lifts, holds or supports trunk or limbs, but provides less than half the effort. 2-Substantial/Maximal Assistance-helper does MORE THAN HALF the effort. [place] lifts or holds trunk or limbs and provides more than half the effort. 6-Nuqagiqwh-jwpgbi does ALL the effort. Patient does none of the effort to complete the activity. Or, the assistance of 2 or more helpers is required for the patient to complete the activity. If activity was not attempted, code reason: 7-Patient Refused. 9-Not Applicable-not attempted and the patient did not perform the activity before the current illness, exacerbation or injury. 10-Not Attempted due to Environmental Limitations-(lack of equipment, weather restraints, etc.). 88-Not Attempted due to Medical Conditions or Safety Concerns. Self Care: Unknown Functional Cognition: Unknown OT Current Status Subjective Tangential, illogical/unorganized thought processing. Pt with paranoid behavior. Appearance Pt left supine in bed, sitter currently in room. Mental Status/Objective Patient Orientation: Person ADL-Treatment Toileting Hygiene (QC): 2 Pt supine, talking nonsensical thoughts into call light. Appears paranoid with sitter in room and frequently whispers to therapist to talk elsewhere. Pt reports need to urinate. Mod a to sit EOB. Impulsive with standing, mod a for safety. Pt Poor walker management and attempting to push walker out of the way. Pt only took 2 steps forward before RN returns to room and requests pt return to bed as she reports that he just received Ativan for aggressive behavior. He stood at bed Min a for standing balance. Poor command following or sequencing steps to use urinal. Max a to manage brief over hips. OT attempts to assist pt with placement of urinal, yet pt continues to push away. Increased time to return to supine as pt unable to follow commands. Mod a to lift LE's into bed. Education OT Patient Education: Correct positioning, Progress toward Goal/Update tx plan, Safety issues, Transfer techniques Teaching Recipient: Patient Teaching Methods: Demonstration, Discussion Response to Teaching: Unable to Return Demonstration, Unable to Comprehend, Reinforcement Needed OT Alf Goals Alf Goals Time Frame: Feb 05, 2021 Eating (QC): 6 Oral Hygiene (QC): 4 Toileting Hygiene (QC): 4 Lower Body Dressing (QC): 3 On/Off Footwear (QC): 3 1=Demonstrate adherence to instructed precautions during ADL tasks. 2=Patient will verbalize/demonstrate understanding of assistive devices/modifications for ADL. 3=Patient will improve strength/tolerance for activity to enable patient to perform ADL's. OT Education/Plan Problem List/Assessment Assessment: Decreased Activ Tolerance, Decreased Safety Aware, Decreased UE Strength, Impaired Bed Mobility, Impaired Cognition, Impaired Funct Balance, Impaired I ADL's, Impaired Self-Care Skills Discharge Recommendations Plan/Recommendations: Continue POC Target Placement Ongoing assessment. Pt likely will require LTC vs assisted living secondary to severe cognitive impairments Treatment Plan/Plan of Care Treatment,Training & Education: Yes Patient would benefit from OT for education, treatment and training to promote independence in ADL's, mobility, safety and/or upper extremity function for ADL's. Plan of Care: ADL Retraining, Caregiver Training, Cognitive Retraining, Functional Mobility, Group Exercise/Act as Ind, UE Funct Exercise/Act Treatment Duration: Feb 05, 2021 Frequency: 5 times per week Estimated Hrs Per Day: .25 hour per day Rehab Potential: Poor Time/GCodes Start Time: 13:25 Stop Time: 13:38 Total Time Billed (hr/min): 13 Billed Treatment Time 1 visit Patsy Mcdermott OT Jan 13, 2021 14:09
--- NOTE | 2021-01-13 14:09 | Progress Note - Hospitalist ---
Subjective HPI/CC On Admission Date Seen by Provider: Jan 13, 2021 Time Seen by Provider: 14:04 Mr. Salinas is a 50-year-old white male presented to the office at his 's insistence who accompanied him due to a recent history of falls. He reports his first fall on November 14 at which time he injured his low back. Following that time he has noted numbness in his legs and has had for 5 subsequent falls none from height. He denied headache but reported generalized weakness. He admitted to longstanding heavy alcohol consumption for which he reports he drinks Granda light 3-4 sixpacks per day. It has been 7 years since his last office visit and he only came in because of his 's insistence. Ports his appetite has been poor and he thinks he is probably lost 20 to 30 pounds by our office scales compared to 7 years ago he is down 40 pounds. He reports some nausea denies abdominal pain denies orange urine and he does not recall the last period of time he left without heavy alcohol consumption. 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 He reports onset of a tremor for at least the past several months worse with action less so at rest and notin g that when he drinks his tremor goes away he denies knowledge of any family history for tremor essential or Parkinson's disease. He denies night sweats chills fever orthopnea PND or pedal edema and denies abdominal distention is noted no melena or bright red blood per rectum. Subjective/Events-last exam Pt is up in bed and about to transfer to [facility] with RN and nursing students there to assist. He is still confused but quite talkative today. Objective Exam Vital Signs Vital Signs Date Time Temp Pulse Resp B/P (MAP) Pulse Ox O2 Delivery O2 Flow Rate FiO2 01/13/21 08:13 36.5 78 16 129/68 (88) 100 Room Air Capillary Refill : Less Than 3 Seconds General Appearance: No Apparent Distress Respiratory: Lungs Clear, No Respiratory Distress Cardiovascular: Regular Rate, Rhythm, No Murmur Neurologic/Psychiatric: Alert, Disoriented Results/Procedures Lab Patient resulted labs reviewed. 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
[2021-01-13 15:49] VITALS: BP 95/72
[2021-01-13] MEDS: ENOXAPARIN 40 MG/0.4 ML (LOVENOX) SYR SC SCH (16:17)
[2021-01-13] MEDS: polyethylene glycoL POWDER 17 GM (MIRALAX) PACK PO SCH (20:00)
[2021-01-13 23:12] VITALS: BP 103/68
[2021-01-14] MEDS: THIAMINE 100 MG (VITAMIN B-1) TAB PO SCH (05:41)
[2021-01-14 07:09] VITALS: BP 112/72
[2021-01-14] MEDS: LORazepam 1 MG (ATIVAN) TAB PO SCH ×3 (08:57→20:13)
[2021-01-14] MEDS: DOCUSATE SODIUM 100 MG (COLACE) CAP PO SCH ×2 (08:58→20:13)
[2021-01-14] MEDS: PYRIDOXINE (VITAMIN B-6) 50 MG TABLET PO SCH (08:58)
[2021-01-14] MEDS: meTOprolol TARTRATE 50 MG (LOPRESSOR) TAB PO SCH ×2 (08:58→20:13)
[2021-01-14] MEDS: FOLIC ACID 1 MG TAB PO SCH (08:58)
[2021-01-14] MEDS: risperiDONE 1 MG (RisperDAL) TAB PO SCH ×2 (09:08→20:13)
--- NOTE | 2021-01-14 09:37 | Physical Therapy Daily Note ---
PT Daily Note-Current Subjective Patient much more alert and able to communicate and follow simple direction. Transfers SCALE: Activities may be completed with or without assistive devices. 9-Modhuftsmt-ntsgiyl completes the activity by him/herself with no assistance from a helper. 5-Set-up or Clean-up Assistance-helper sets up or cleans up; patient completes activity. [place] assists only prior to or following the activity. 4-Supervision or Touching Assistance-helper provides verbal cues and/or touching/steadying and/or contact guard assistance as patient completes activity. Assistance may be provided throughout the activity or intermittently. 3-Partial/Moderate Assistance-helper does LESS THAN HALF the effort. [place] lifts, holds or supports trunk or limbs, but provides less than half the effort. 2-Substantial/Maximal Assistance-helper does MORE THAN HALF the effort. [place] lifts or holds trunk or limbs and provides more than half the effort. 9-Hfrqsbfck-spmsbg does ALL the effort. Patient does none of the effort to complete the activity. Or, the assistance of 2 or more helpers is required for the patient to complete the activity. If activity was not attempted, code reason: 7-Patient Refused. 9-Not Applicable-not attempted and the patient did not perform the activity before the current illness, exacerbation or injury. 10-Not Attempted due to Environmental Limitations-(lack of equipment, weather restraints, etc.). 88-Not Attempted due to Medical Conditions or Safety Concerns. Lying to Sitting/Side of Bed(Q: 3 Sit to Stand (QC): 4 Chair/Tgx-km-Ajhfo Xfer(QC): 4 Weight Bearing Right Lower Extremity: Right Full Weight Bearing Left Lower Extremity: Left Full Weight Bearing Gait Training Does the Patient Walk?: Yes Distance: 150' x 1/100' x 1 Walk 10 feet (QC): 3 Walk 50 ft with 2 Turns(QC): 3 Walk 150 ft (QC): 3 Gait Assistive Device: FWW VC's for body placement in FWW and for gait sequence/shuffle gait pattern with correction 50% of the time Exercises Seated Therapy Exercises: Long arc quads Seated Reps: 15 (AROM) Assessment Patient tolerated treatment well and is in recliner with chair alarm activated. Continue to increase activity as tolerated by patient. PT Short Term Goals Short Term Goals Time Frame: Jan 05, 2021 PT Fdc Goals Fdc Goals PT Farm Equipment Assembler Goals Time Frame: Jan 12, 2021 Roll Left & Right (QC): 4 Sit to Lying (QC): 4 Lying-Sitting on Side/Bed(QC): 4 Sit to Stand (QC): 4 Chair/Sll-vj-Xbwil Xfer(QC): 4 Toilet Transfer (QC): 4 Does the Patient Walk: No and Walking Goal IS indicated Walk 10 feet (QC): 3 Walk 50ft with 2 Turns (QC): 3 PT Plan Treatment/Plan Treatment Plan: Continue Plan of Care Treatment Plan: Bed Mobility, Education, Functional Activity Jem, Functional Strength, Group Therapy, Gait, Safety, Therapeutic Exercise, Transfers Treatment Duration: Mar 02, 2021 Frequency: 6 times per week Estimated Hrs Per Day: .25 hour per day Time/GCodes Time In: 852 Time Out: 917 Total Billed Treatment Time: 25 Total Billed Treatment 1 visit GT x 2 25 min ALIZE GALDAMEZ PT Jan 14, 2021 09:37
--- NOTE | 2021-01-14 11:47 | Occupational Ther Daily Note ---
OT Current Status-Daily Note Subjective Pt alert, confused only orientated to name. and live sitter present in room. Mental Status/Objective Patient Orientation: Person, Place, Time, Situation Attachments: IV ADL-Treatment Pt stated that he felt like he needed a BM. When attempting to get pt up out of bed to transfer to BSC, pt forgot what he was wanting to do. With 's insistence and assist from OT and nrsg, pt transferred onto BSC with assist. Assist to manipulated clothing. Pt attempted to don briefs over feet, unable to complete by self. Assist with hygiene and clothing manipulation. Assist to SPT from BSC to bed. Pt unable to follow 1 step directions for toileting/ADLs. Sitter in room. All needs met in room. Therapy Code Descriptions/Definitions Functional [place]ondo Measure: 0=Not Assessed/NA 4=Minimal Assistance 1=Total Assistance 5=Supervision or Setup 2=Maximal Assistance 6=Modified [place] 3=Moderate Assistance 7=Complete IndependenceSCALE: Activities may be completed with or without assistive devices. 4-Ptcfskhmdo-meifoyo completes the activity by him/herself with no assistance from a helper. 5-Set-up or Clean-up Assistance-helper sets up or cleans up; patient completes activity. [place] assists only prior to or following the activity. 4-Supervision or Touching Assistance-helper provides verbal cues and/or touching/steadying and/or contact guard assistance as patient completes activity. Assistance may be provided throughout the activity or intermittently. 3-Partial/Moderate Assistance-helper does LESS THAN HALF the effort. [place] lifts, holds or supports trunk or limbs, but provides less than half the effort. 2-Substantial/Maximal Assistance-helper does MORE THAN HALF the effort. [place] lifts or holds trunk or limbs and provides more than half the effort. 2-Afhexuznk-zddoqw does ALL the effort. Patient does none of the effort to complete the activity. Or, the assistance of 2 or more helpers is required for the patient to complete the activity. If activity was not attempted, code reason: 7-Patient Refused. 9-Not Applicable-not attempted and the patient did not perform the activity before the current illness, exacerbation or injury. 10-Not Attempted due to Environmental Limitations-(lack of equipment, weather restraints, etc.). 88-Not Attempted due to Medical Conditions or Safety Concerns. Lower Body Dressing (QC): 1 Toileting Hygiene (QC): 1 Toilet Transfer (QC): 1 OT [facility] Goals Safety Fire Boss Goals Time Frame: Feb 05, 2021 Eating (QC): 6 Oral Hygiene (QC): 4 Toileting Hygiene (QC): 4 Lower Body Dressing (QC): 3 On/Off Footwear (QC): 3 1=Demonstrate adherence to instructed precautions during ADL tasks. 2=Patient will verbalize/demonstrate understanding of assistive devices/modifications for ADL. 3=Patient will improve strength/tolerance for activity to enable patient to perform ADL's. OT Education/Plan Problem List/Assessment Assessment: Decreased Safety Aware, Impaired Cognition, Impaired Self-Care Skills Discharge Recommendations Plan/Recommendations: Continue POC Treatment Plan/Plan of Care Patient would benefit from OT for education, treatment and training to promote independence in ADL's, mobility, safety and/or upper extremity function for ADL's. Plan of Care: ADL Retraining, Caregiver Training, Cognitive Retraining, Functional Mobility, Group Exercise/Act as Ind, UE Funct Exercise/Act Treatment Duration: Feb 05, 2021 Frequency: 5 times per week Estimated Hrs Per Day: .25 hour per day Rehab Potential: Poor Time/GCodes Start Time: 11:08 Stop Time: 11:20 Total Time Billed (hr/min): 12 Billed Treatment Time 1 visit-ADL 1 (12 min) DALIA TIM Jan 14, 2021 11:47
[2021-01-14] MEDS: LORazepam 1 MG (ATIVAN) TAB PO PRN (13:19)
[2021-01-14 15:10] VITALS: BP 111/75
[2021-01-14] MEDS: ENOXAPARIN 40 MG/0.4 ML (LOVENOX) SYR SC SCH (16:18)
--- NOTE | 2021-01-14 16:55 | Progress Note - Hospitalist ---
Subjective HPI/CC On Admission Date Seen by Provider: Jan 14, 2021 Time Seen by Provider: 09:45 Mr. Salinas is a 50-year-old white male presented to the office at his 's insistence who accompanied him due to a recent history of falls. He reports his first fall on November 14 at which time he injured his low back. Following that time he has noted numbness in his legs and has had for 5 subsequent falls none from height. He denied headache but reported generalized weakness. He admitted to longstanding heavy alcohol consumption for which he reports he drinks Granda light 3-4 sixpacks per day. It has been 7 years since his last office visit and he only came in because of his 's insistence. Ports his appetite has been poor and he thinks he is probably lost 20 to 30 pounds by our office scales compared to 7 years ago he is down 40 pounds. He reports some nausea denies abdominal pain denies orange urine and he does not recall the last period of time he left without heavy alcohol consumption. 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 He reports onset of a tremor for at least the past several months worse with action less so at rest and notin g that when he drinks his tremor goes away he denies knowledge of any family history for tremor essential or Parkinson's disease. He denies night sweats chills fever orthopnea PND or pedal edema and denies abdominal distention is noted no melena or bright red blood per rectum. Subjective/Events-last exam Pt remains confused. at beside and informs me of here plan to transfer him via ambulance to [facility]. I inquired where she had contacted another physician there or ambulance service and she said no she has only contacted the HR person at his work. She states that the HR person told her to "have him brought in an ambulance to so a doctor will meet him on arrival and everything will be covered 100%." Informed her of transfer requirements per EMTALA guidelines and that I would be happy to contacted to attempt to arrange transfer but that they may not accept him. She is agreeable to this plan. When I asked patient about who was visiting him he said he didn't know. states that he is just joking and has always been a joker. Objective Exam Vital Signs Vital Signs Date Time Temp Pulse Resp B/P (MAP) Pulse Ox O2 Delivery O2 Flow Rate FiO2 01/14/21 15:10 35.8 76 18 111/75 (87) 99 Room Air Capillary Refill : Less Than 3 Seconds General Appearance: Other (sitting in bed, fidgeting with blanket) Respiratory: Lungs Clear, No Respiratory Distress Cardiovascular: Regular Rate, Rhythm, No Murmur Neurologic/Psychiatric: Alert, Disoriented Results/Procedures Lab Patient resulted labs reviewed. 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 I reached out to who could not accept him due to bed capacity. I was able to consult with Dr Lemus, neurology at [facility]. regarding the case. Dr Meek, patient's PCP, happened to be in the room so was on speakerphone to collaborate on plan. We reviewed details of case and current work up. Dr Lemus had no further recommendations, agreed with management, and denied need for transfer for neurology. He states at some point an EEG could be beneficial but this was not urgent. Agreed with working diagnosis of Wernicke Korsakoff Syndrome and to continue current plan. DVT prophylaxis: Lovenox Alcoholic hepatitis, resolved Hyponatremia, resolved Hypokalemia, resolved Tachycardia, resolved UTI, resolved STACI MCNAMARA MD Jan 14, 2021 16:55
[2021-01-14] MEDS: polyethylene glycoL POWDER 17 GM (MIRALAX) PACK PO SCH (20:13)
[2021-01-14] MEDS: LORazepam INJ 2 MG/ML (ATIVAN) VIAL IVP PRN (21:42)
[2021-01-14 23:12] VITALS: BP 122/84
[2021-01-15] MEDS: THIAMINE 100 MG (VITAMIN B-1) TAB PO SCH (06:00)
[2021-01-15] MEDS: LORazepam INJ 2 MG/ML (ATIVAN) VIAL IVP PRN ×2 (06:16→20:19)
[2021-01-15 07:04] VITALS: BP 105/63
[2021-01-15] MEDS: DOCUSATE SODIUM 100 MG (COLACE) CAP PO SCH ×3 (08:40→21:44)
[2021-01-15] MEDS: LORazepam 1 MG (ATIVAN) TAB PO SCH ×4 (08:41→21:42)
[2021-01-15] MEDS: risperiDONE 1 MG (RisperDAL) TAB PO SCH ×3 (08:41→21:44)
[2021-01-15] MEDS: PYRIDOXINE (VITAMIN B-6) 50 MG TABLET PO SCH (08:41)
[2021-01-15] MEDS: meTOprolol TARTRATE 50 MG (LOPRESSOR) TAB PO SCH ×3 (08:41→21:44)
[2021-01-15] MEDS: FOLIC ACID 1 MG TAB PO SCH (08:41)
--- NOTE | 2021-01-15 10:10 | Progress Note - Hospitalist ---
Subjective HPI/CC On Admission Date Seen by Provider: Jan 15, 2021 Time Seen by Provider: 10:06 Mr. Salinas is a 50-year-old white male presented to the office at his 's insistence who accompanied him due to a recent history of falls. He reports his first fall on November 14 at which time he injured his low back. Following that time he has noted numbness in his legs and has had for 5 subsequent falls none from height. He denied headache but reported generalized weakness. He admitted to longstanding heavy alcohol consumption for which he reports he drinks Granda light 3-4 sixpacks per day. It has been 7 years since his last office visit and he only came in because of his 's insistence. Ports his appetite has been poor and he thinks he is probably lost 20 to 30 pounds by our office scales compared to 7 years ago he is down 40 pounds. He reports some nausea denies abdominal pain denies orange urine and he does not recall the last period of time he left without heavy alcohol consumption. 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 He reports onset of a tremor for at least the past several months worse with action less so at rest and notin g that when he drinks his tremor goes away he denies knowledge of any family history for tremor essential or Parkinson's disease. He denies night sweats chills fever orthopnea PND or pedal edema and denies abdominal distention is noted no melena or bright red blood per rectum. Subjective/Events-last exam Pt reports needing to go to the bathroom. Otherwise no complaints. not at bedside. I attempted to call with no answer. She did return phone call and I informed her of the recommendations from [facility] and transfer denial. She sounded tearful and asked to have the weekend to process this information. Objective Exam Vital Signs Vital Signs Date Time Temp Pulse Resp B/P (MAP) Pulse Ox O2 Delivery O2 Flow Rate FiO2 01/15/21 07:04 36.2 85 20 105/63 (77) 100 Room Air Capillary Refill : Less Than 3 Seconds General Appearance: Anxious, Chronically ill Respiratory: Lungs Clear, No Respiratory Distress Cardiovascular: Regular Rate, Rhythm, No Murmur Neurologic/Psychiatric: Alert, Disoriented Results/Procedures Lab Patient resulted labs reviewed. 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 Alcohol withdrawal with perceptual disturbance Alcohol dependence Alcohol myopathy Obstructive sleep apnea Lumbar puncture unrevealing, no improvement CSF VDRL negative Will get EBV panel consistent with prior infection Continue vitamins and supplements Ativan as needed s/p phenobarbital Continue Risperdal PT/OT SW consulted, appreciate assistance Will require placement, looking at two places currently, accepted at [facility] if finances can be arranged Informed of 's denial of patient and no further recommendations from Neurology at , she expressed understanding DVT prophylaxis: Lovenox Alcoholic hepatitis, resolved Hyponatremia, resolved Hypokalemia, resolved Tachycardia, resolved UTI, resolved STACI MCNAMARA MD Jan 15, 2021 10:10
[2021-01-15 15:31] VITALS: BP 117/64
[2021-01-15] MEDS: ENOXAPARIN 40 MG/0.4 ML (LOVENOX) SYR SC SCH (15:42)
[2021-01-15] MEDS: polyethylene glycoL POWDER 17 GM (MIRALAX) PACK PO SCH (20:11)
[2021-01-15 23:36] VITALS: BP 68/64
[2021-01-16] MEDS: LORazepam 1 MG (ATIVAN) TAB PO PRN ×2 (02:28→18:00)
[2021-01-16] MEDS: THIAMINE 100 MG (VITAMIN B-1) TAB PO SCH (06:48)
[2021-01-16 08:39] VITALS: BP 115/83
[2021-01-16] MEDS: risperiDONE 1 MG (RisperDAL) TAB PO SCH (08:52)
[2021-01-16] MEDS: LORazepam 1 MG (ATIVAN) TAB PO SCH ×3 (08:54→21:38)
[2021-01-16] MEDS: FOLIC ACID 1 MG TAB PO SCH (08:54)
[2021-01-16] MEDS: PYRIDOXINE (VITAMIN B-6) 50 MG TABLET PO SCH (08:54)
[2021-01-16] MEDS: meTOprolol TARTRATE 50 MG (LOPRESSOR) TAB PO SCH ×2 (08:54→21:38)
[2021-01-16] MEDS: DOCUSATE SODIUM 100 MG (COLACE) CAP PO SCH ×2 (08:54→21:41)
--- NOTE | 2021-01-16 13:12 | Progress Note - Hospitalist ---
Subjective HPI/CC On Admission Date Seen by Provider: Jan 16, 2021 Time Seen by Provider: 13:07 Mr. Salinas is a 50-year-old white male presented to the office at his 's insistence who accompanied him due to a recent history of falls. He reports his first fall on November 14 at which time he injured his low back. Following that time he has noted numbness in his legs and has had for 5 subsequent falls none from height. He denied headache but reported generalized weakness. He admitted to longstanding heavy alcohol consumption for which he reports he drinks Granda light 3-4 sixpacks per day. It has been 7 years since his last office visit and he only came in because of his 's insistence. Ports his appetite has been poor and he thinks he is probably lost 20 to 30 pounds by our office scales compared to 7 years ago he is down 40 pounds. He reports some nausea denies abdominal pain denies orange urine and he does not recall the last period of time he left without heavy alcohol consumption. 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 He reports onset of a tremor for at least the past several months worse with action less so at rest and noti ng that when he drinks his tremor goes away he denies knowledge of any family history for tremor essential or Parkinson's disease. He denies night sweats chills fever orthopnea PND or pedal edema and denies abdominal distention is noted no melena or bright red blood per rectum. Subjective/Events-last exam Pt reports doing ok. Had just been served lunch by nutrition staff and was asking for help with finding the keys to his car. Attempted to stand up and hug me on entrance. Objective Exam Vital Signs Vital Signs Date Time Temp Pulse Resp B/P (MAP) Pulse Ox O2 Delivery O2 Flow Rate FiO2 01/16/21 08:39 35.2 78 18 115/83 (94) 98 Room Air Capillary Refill : Less Than 3 Seconds General Appearance: No Apparent Distress Respiratory: Lungs Clear, No Respiratory Distress Cardiovascular: Regular Rate, Rhythm, No Murmur Neurologic/Psychiatric: Alert, Disoriented Results/Procedures Lab Patient resulted labs reviewed. Imaging: Reviewed Imaging Report Assessment/Plan Assessment and Plan Assess & Plan/Chief Complaint Wernicke-Korsakoff syndrome Alcohol withdrawal with perceptual disturbance Alcohol dependence Alcohol myopathy Obstructive sleep apnea Lumbar puncture unrevealing, no improvement CSF VDRL negative EBV panel consistent with prior infection Continue vitamins and supplements Ativan as needed s/p phenobarbital Continue Risperdal PT/OT SW consulted, appreciate assistance Will require placement, looking at two places currently, accepted at [facility] if finances can be arranged Informed of 's denial of patient and no further recommendations from Neurology at , she expressed understanding DVT prophylaxis: Lovenox Alcoholic hepatitis, resolved Hyponatremia, resolved Hypokalemia, resolved Tachycardia, resolved UTI, resolved STACI MCNAMARA MD Jan 16, 2021 13:12
[2021-01-16] MEDS: LORazepam INJ 2 MG/ML (ATIVAN) VIAL IVP PRN ×2 (14:11→18:34)
[2021-01-16] MEDS: ENOXAPARIN 40 MG/0.4 ML (LOVENOX) SYR SC SCH (15:17)
[2021-01-16 15:22] VITALS: BP 101/69
[2021-01-16] MEDS: ONDANSETRON 4 MG/2 ML (SDV) Z0FRAN IV PRN (18:08)
[2021-01-16] MEDS ORDERED: LORazepam INJ 2 MG/ML (ATIVAN) VIAL IVP PRN (18:45)
[2021-01-16] MEDS: risperiDONE 2 MG (RisperDAL) TAB PO SCH (21:38)
[2021-01-16] MEDS: polyethylene glycoL POWDER 17 GM (MIRALAX) PACK PO SCH (21:42)
[2021-01-17 00:11] VITALS: BP 135/83
[2021-01-17] MEDS: LORazepam INJ 2 MG/ML (ATIVAN) VIAL IVP PRN ×3 (03:56→18:49)
[2021-01-17] MEDS: THIAMINE 100 MG (VITAMIN B-1) TAB PO SCH (05:44)
[2021-01-17 08:00] VITALS: BP 107/73
[2021-01-17] MEDS: LORazepam 1 MG (ATIVAN) TAB PO SCH ×3 (08:42→19:20)
[2021-01-17] MEDS: FOLIC ACID 1 MG TAB PO SCH (08:42)
[2021-01-17] MEDS: PYRIDOXINE (VITAMIN B-6) 50 MG TABLET PO SCH (08:42)
[2021-01-17] MEDS: DOCUSATE SODIUM 100 MG (COLACE) CAP PO SCH ×2 (08:42→19:20)
[2021-01-17] MEDS: meTOprolol TARTRATE 50 MG (LOPRESSOR) TAB PO SCH ×2 (08:42→19:21)
[2021-01-17] MEDS: risperiDONE 2 MG (RisperDAL) TAB PO SCH ×2 (08:42→19:20)
--- NOTE | 2021-01-17 09:34 | Physical Therapy Progress Note ---
Therapy Progress Note Patient currently too sedated to actively and safely participate with PT. Will attempt later today. ALIZE GALDAMEZ PT Jan 17, 2021 09:34
[2021-01-17] MEDS: SENNA W/DOCUSATE (SENOKOT S) TABLET PO PRN (11:54)
[2021-01-17] MEDS: polyethylene glycoL POWDER 17 GM (MIRALAX) PACK PO SCH (11:54)
--- NOTE | 2021-01-17 12:55 | Progress Note - Hospitalist ---
Subjective HPI/CC On Admission Date Seen by Provider: Jan 17, 2021 Time Seen by Provider: 11:05 Mr. Salinas is a 50-year-old white male presented to the office at his 's insistence who accompanied him due to a recent history of falls. He reports his first fall on November 14 at which time he injured his low back. Following that time he has noted numbness in his legs and has had for 5 subsequent falls none from height. He denied headache but reported generalized weakness. He admitted to longstanding heavy alcohol consumption for which he reports he drinks [place] light 3-4 sixpacks per day. It has been 7 years since his last office visit and he only came in because of his 's insistence. Ports his appetite has been poor and he thinks he is probably lost 20 to 30 pounds by our office scales compared to 7 years ago he is down 40 pounds. He reports some nausea denies abdominal pain denies orange urine and he does not recall the last period of time he left without heavy alcohol consumption. 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 He reports onset of a tremor for at least the past several months worse with action less so at rest and noti ng that when he drinks his tremor goes away he denies knowledge of any family history for tremor essential or Parkinson's disease. He denies night sweats chills fever orthopnea PND or pedal edema and denies abdominal distention is noted no melena or bright red blood per rectum. Subjective/Events-last exam He remains confused. He is not in any pain. He denies any complaints or concerns. Objective Exam Vital Signs Vital Signs Date Time Temp Pulse Resp B/P (MAP) Pulse Ox O2 Delivery O2 Flow Rate FiO2 01/17/21 08:00 35.8 63 16 107/73 (84) 99 Room Air Capillary Refill : Less Than 3 Seconds General Appearance: No Apparent Distress, Chronically ill Respiratory: Lungs Clear, Normal Breath Sounds, No Respiratory Distress Cardiovascular: Regular Rate, Rhythm, No Edema, No Murmur Gastrointestinal: Normal Bowel Sounds, Non Tender, Soft Extremity: Normal Inspection, Non Tender, No Pedal Edema Neurologic/Psychiatric: Alert, No Motor/Sensory Deficits, Disoriented Skin: Normal Color, Warm/Dry Results/Procedures Lab Patient resulted labs reviewed. 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 Alcohol withdrawal with perceptual disturbance Alcohol dependence Alcohol myopathy Obstructive sleep apnea Lumbar puncture unrevealing, no improvement Continue vitamins and supplements Continue Risperdal Ativan as needed SW consulted, appreciate assistance Medically stable for discharge Awaiting placement, has not spoken to facility yet Called multiple times, voice mailbox full DVT prophylaxis: Lovenox Alcoholic hepatitis, resolved Hyponatremia, resolved Hypokalemia, resolved Tachycardia, resolved UTI, resolved Diagnosis/Problems Diagnosis/Problems (1) Wernicke-Korsakoff syndrome (alcoholic) Status: Acute (2) Alcohol withdrawal Status: Acute Qualifiers: Complication of substance-induced condition: with perceptual disturbance Qualified Codes: F10.232 - Alcohol dependence with withdrawal with perceptual disturbance (3) Alcohol dependence Status: Acute Qualifiers: Substance use status: in withdrawal Complication of substance-induced condition: with perceptual disturbance Qualified Codes: F10.232 - Alcohol d ependence with withdrawal with perceptual disturbance (4) Alcoholic hepatitis without ascites Status: Resolved Resolution Date/Time: 12/24/20 @ 12:41 (5) Alcohol myopathy Status: Acute (6) Recurrent falls Status: Acute (7) UTI (urinary tract infection) Status: Acute ANIL WYATT MD Jan 17, 2021 12:55
--- NOTE | 2021-01-17 14:02 | Physical Therapy Daily Note ---
PT Daily Note-Current Subjective Patient is more confused on this date. Live and telesitter present. Mental Status Patient Orientation: Confused Transfers SCALE: Activities may be completed with or without assistive devices. 1-Yalzegvdij-pbbgzma completes the activity by him/herself with no assistance from a helper. 5-Set-up or Clean-up Assistance-helper sets up or cleans up; patient completes activity. [place] assists only prior to or following the activity. 4-Supervision or Touching Assistance-helper provides verbal cues and/or touching/steadying and/or contact guard assistance as patient completes activity. Assistance may be provided throughout the activity or intermittently. 3-Partial/Moderate Assistance-helper does LESS THAN HALF the effort. [place] lifts, holds or supports trunk or limbs, but provides less than half the effort. 2-Substantial/Maximal Assistance-helper does MORE THAN HALF the effort. [place] lifts or holds trunk or limbs and provides more than half the effort. 4-Qsihzyevs-lychcy does ALL the effort. Patient does none of the effort to complete the activity. Or, the assistance of 2 or more helpers is required for the patient to complete the activity. If activity was not attempted, code reason: 7-Patient Refused. 9-Not Applicable-not attempted and the patient did not perform the activity before the current illness, exacerbation or injury. 10-Not Attempted due to Environmental Limitations-(lack of equipment, weather restraints, etc.). 88-Not Attempted due to Medical Conditions or Safety Concerns. Lying to Sitting/Side of Bed(Q: 3 Sit to Stand (QC): 3 Chair/Gck-sy-Ffiyz Xfer(QC): 3 Weight Bearing Right Lower Extremity: Right Full Weight Bearing Left Lower Extremity: Left Full Weight Bearing Gait Training Does the Patient Walk?: Yes Distance: 175' Walk 10 feet (QC): 3 Walk 50 ft with 2 Turns(QC): 3 Walk 150 ft (QC): 3 Gait Assistive Device: FWW VC's for gait sequence/flexed bilateral knee and trunk posture in stand with noted "shaking" / foot clearance 50% of sequence Assessment Patient up in recliner with needs met. Sitter present and chair alarm activated. PT Short Term Goals Short Term Goals Time Frame: Jan 05, 2021 PT Fashion Patternmaker Goals Fashion Patternmaker Goals PT Intermediate Goals Time Frame: Jan 12, 2021 Roll Left & Right (QC): 4 Sit to Lying (QC): 4 Lying-Sitting on Side/Bed(QC): 4 Sit to Stand (QC): 4 Chair/Wmv-id-Lnjdh Xfer(QC): 4 Toilet Transfer (QC): 4 Does the Patient Walk: No and Walking Goal IS indicated Walk 10 feet (QC): 3 Walk 50ft with 2 Turns (QC): 3 PT Plan Treatment/Plan Treatment Plan: Continue Plan of Care Treatment Plan: Bed Mobility, Education, Functional Activity Jem, Functional Strength, Group Therapy, Gait, Safety, Therapeutic Exercise, Transfers Treatment Duration: Mar 02, 2021 Frequency: 6 times per week Estimated Hrs Per Day: .25 hour per day Time/GCodes Time In: 1330 Time Out: 1347 Total Billed Treatment Time: 17 Total Billed Treatment 1 visit GT 17 min ALIZE GALDAMEZ PT Jan 17, 2021 14:02
--- NOTE | 2021-01-17 14:24 | Occupational Ther Daily Note ---
OT Current Status-Daily Note Subjective Pt alert, sitting in recliner. 1:1 sitter present. Pt continues to be confused. Thinking he was at work and that cicadas were chirping. Mental Status/Objective Patient Orientation: Person, Confused Attachments: IV ADL-Treatment Therapy Code Descriptions/Definitions Functional [place] Measure: 0=Not Assessed/NA 4=Minimal Assistance 1=Total Assistance 5=Supervision or Setup 2=Maximal Assistance 6=Modified [place] 3=Moderate Assistance 7=Complete IndependenceSCALE: Activities may be completed with or without assistive devices. 9-Bikwagtabn-zowjcde completes the activity by him/herself with no assistance from a helper. 5-Set-up or Clean-up Assistance-helper sets up or cleans up; patient completes activity. [place] assists only prior to or following the activity. 4-Supervision or Touching Assistance-helper provides verbal cues and/or touching/steadying and/or contact guard assistance as patient completes activity. Assistance may be provided throughout the activity or intermittently. 3-Partial/Moderate Assistance-helper does LESS THAN HALF the effort. [place] lifts, holds or supports trunk or limbs, but provides less than half the effort. 2-Substantial/Maximal Assistance-helper does MORE THAN HALF the effort. [place] lifts or holds trunk or limbs and provides more than half the effort. 4-Ycfoadipr-ayfmzm does ALL the effort. Patient does none of the effort to complete the activity. Or, the assistance of 2 or more helpers is required for the patient to complete the activity. If activity was not attempted, code reason: 7-Patient Refused. 9-Not Applicable-not attempted and the patient did not perform the activity before the current illness, exacerbation or injury. 10-Not Attempted due to Environmental Limitations-(lack of equipment, weather restraints, etc.). 88-Not Attempted due to Medical Conditions or Safety Concerns. Other Treatment After several attempts to engage pt in B UE exercises, pt completed 1 set 10 reps of shldr flex and shldr abd/add. Pt then went into tangents talking about nonsensical things. Pt then stated no to complete tooth brushing or to comb hair. After session, pt sitting in recliner with safety measures in place. 1:1 sitter present in room. OT Field Hockey And Lacrosse Coach Goals Snf Goals Time Frame: Feb 05, 2021 Eating (QC): 6 Oral Hygiene (QC): 4 Toileting Hygiene (QC): 4 Lower Body Dressing (QC): 3 On/Off Footwear (QC): 3 1=Demonstrate adherence to instructed precautions during ADL tasks. 2=Patient will verbalize/demonstrate understanding of assistive devices/modifications for ADL. 3=Patient will improve strength/tolerance for activity to enable patient to perform ADL's. OT Education/Plan Problem List/Assessment Assessment: Decreased Activ Tolerance, Decreased UE Strength, Impaired Cognition, Impaired I ADL's Discharge Recommendations Plan/Recommendations: Continue POC Treatment Plan/Plan of Care Patient would benefit from OT for education, treatment and training to promote independence in ADL's, mobility, safety and/or upper extremity function for ADL's. Plan of Care: ADL Retraining, Caregiver Training, Cognitive Retraining, Functional Mobility, Group Exercise/Act as Ind, UE Funct Exercise/Act Treatment Duration: Feb 05, 2021 Frequency: 5 times per week Estimated Hrs Per Day: .25 hour per day Rehab Potential: Poor Time/GCodes Start Time: 13:55 Stop Time: 14:12 Total Time Billed (hr/min): 17 Billed Treatment Time 1 visit-EX 1 (17 min) DALIA TIM Jan 17, 2021 14:24
[2021-01-17 15:07] VITALS: BP 99/66
[2021-01-17] MEDS: ENOXAPARIN 40 MG/0.4 ML (LOVENOX) SYR SC SCH (15:24)
[2021-01-17] MEDS: polyethylene glycoL POWDER 17 GM (MIRALAX) PACK PO PRN (19:21)
[2021-01-17 23:38] VITALS: BP 135/73
[2021-01-18] MEDS: LORazepam INJ 2 MG/ML (ATIVAN) VIAL IVP PRN ×2 (01:28→12:26)
[2021-01-18] MEDS: LORazepam 1 MG (ATIVAN) TAB PO PRN (03:07)
[2021-01-18] MEDS: THIAMINE 100 MG (VITAMIN B-1) TAB PO SCH (06:37)
[2021-01-18] MEDS: risperiDONE 2 MG (RisperDAL) TAB PO SCH ×2 (08:08→20:03)
[2021-01-18] MEDS: meTOprolol TARTRATE 50 MG (LOPRESSOR) TAB PO SCH ×3 (08:08→20:03)
[2021-01-18] MEDS: FOLIC ACID 1 MG TAB PO SCH (08:08)
[2021-01-18] MEDS: LORazepam 1 MG (ATIVAN) TAB PO SCH ×4 (08:08→20:03)
[2021-01-18] MEDS: DOCUSATE SODIUM 100 MG (COLACE) CAP PO SCH ×3 (08:08→20:03)
[2021-01-18 08:10] VITALS: BP 111/74
[2021-01-18] MEDS: PYRIDOXINE (VITAMIN B-6) 50 MG TABLET PO SCH ×2 (08:10→08:30)
--- NOTE | 2021-01-18 11:32 | Progress Note - Hospitalist ---
Subjective HPI/CC On Admission Date Seen by Provider: Jan 18, 2021 Time Seen by Provider: 10:35 Mr. Salinas is a 50-year-old white male presented to the office at his 's insistence who accompanied him due to a recent history of falls. He reports his first fall on November 14 at which time he injured his low back. Following that time he has noted numbness in his legs and has had for 5 subsequent falls none from height. He denied headache but reported generalized weakness. He admitted to longstanding heavy alcohol consumption for which he reports he drinks [place] light 3-4 sixpacks per day. It has been 7 years since his last office visit and he only came in because of his 's insistence. Ports his appetite has been poor and he thinks he is probably lost 20 to 30 pounds by our office scales compared to 7 years ago he is down 40 pounds. He reports some nausea denies abdominal pain denies orange urine and he does not recall the last period of time he left without heavy alcohol consumption. 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 He reports onset of a tremor for at least the past several months worse with action less so at rest and noti ng that when he drinks his tremor goes away he denies knowledge of any family history for tremor essential or Parkinson's disease. He denies night sweats chills fever orthopnea PND or pedal edema and denies abdominal distention is noted no melena or bright red blood per rectum. Subjective/Events-last exam He remains confused. He is not having any pain. He is not having any trouble breathing. Objective Exam Vital Signs Vital Signs Date Time Temp Pulse Resp B/P (MAP) Pulse Ox O2 Delivery O2 Flow Rate FiO2 01/18/21 08:27 Room Air 01/18/21 08:10 80 18 111/74 (86) 100 01/17/21 23:38 36.2 Capillary Refill : Less Than 3 Seconds General Appearance: No Apparent Distress, Chronically ill, Thin Respiratory: Lungs Clear, Normal Breath Sounds, No Respiratory Distress Cardiovascular: Regular Rate, Rhythm, No Edema, No Murmur Gastrointestinal: Normal Bowel Sounds, Non Tender, Soft Extremity: Normal Inspection, Non Tender, No Pedal Edema Neurologic/Psychiatric: Alert, Disoriented Skin: Normal Color, Warm/Dry Results/Procedures Lab Patient resulted labs reviewed. 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 Alcohol withdrawal with perceptual disturbance Alcohol dependence Alcohol myopathy Obstructive sleep apnea MRI with no acute abnormalities, possible normal pressure hydrocephalus Lumbar puncture unrevealing, no improvement Continue vitamins and supplements Continue Risperdal Ativan as needed SW consulted, appreciate assistance now requesting second opinion [facility] transfer attempted last week, not accepted Called [facility] today, no available beds [facility] contacted, awaiting call back to attempt neurology transfer DVT prophylaxis: Lovenox Alcoholic hepatitis, resolved Hyponatremia, resolved Hypokalemia, resolved Tachycardia, resolved UTI, resolved Diagnosis/Problems Diagnosis/Problems (1) Wernicke-Korsakoff syndrome (alcoholic) Status: Acute (2) Alcohol withdrawal Status: Acute Qualifiers: Complication of substance-induced condition: with perceptual disturbance Qualified Codes: F10.232 - Alcohol dependence with withdrawal with perceptual disturbance (3) Alcohol dependence Status: Acute Qualifiers: Substance use status: in withdrawal Complication of substance-induced condition: with perceptual disturbance Qualified Codes: F10.232 - Alcohol dependence with withdrawal with perceptual disturbance (4) Alcoholic hepatitis without ascites Status: Resolved Resolution Date/Time: 12/24/20 @ 12:41 (5) Alcohol myopathy Status: Acute (6) Recurrent falls Status: Acute (7) UTI (urinary tract infection) Status: Acute ANIL WYATT MD Jan 18, 2021 11:32
--- NOTE | 2021-01-18 13:50 | Physical Therapy Daily Note ---
PT Daily Note-Current Subjective Patient agrees to PT. Mental Status Patient Orientation: Confused Transfers SCALE: Activities may be completed with or without assistive devices. 4-Cgeztlzwxe-mpjhhxb completes the activity by him/herself with no assistance from a helper. 5-Set-up or Clean-up Assistance-helper sets up or cleans up; patient completes activity. [place] assists only prior to or following the activity. 4-Supervision or Touching Assistance-helper provides verbal cues and/or touching/steadying and/or contact guard assistance as patient completes activity. Assistance may be provided throughout the activity or intermittently. 3-Partial/Moderate Assistance-helper does LESS THAN HALF the effort. [place] lifts, holds or supports trunk or limbs, but provides less than half the effort. 2-Substantial/Maximal Assistance-helper does MORE THAN HALF the effort. [place] lifts or holds trunk or limbs and provides more than half the effort. 9-Tgolljqfe-frsnuk does ALL the effort. Patient does none of the effort to complete the activity. Or, the assistance of 2 or more helpers is required for the patient to complete the activity. If activity was not attempted, code reason: 7-Patient Refused. 9-Not Applicable-not attempted and the patient did not perform the activity before the current illness, exacerbation or injury. 10-Not Attempted due to Environmental Limitations-(lack of equipment, weather restraints, etc.). 88-Not Attempted due to Medical Conditions or Safety Concerns. Sit to Lying (QC): 4 Lying to Sitting/Side of Bed(Q: 4 Sit to Stand (QC): 4 Weight Bearing Right Lower Extremity: Right Full Weight Bearing Left Lower Extremity: Left Full Weight Bearing Gait Training Does the Patient Walk?: Yes Distance: 175' Walk 10 feet (QC): 3 Walk 50 ft with 2 Turns(QC): 3 Walk 150 ft (QC): 3 Gait Assistive Device: FWW flexed trunk and bilateral knees with gait sequence with VC's for step length and sequence Assessment Patient is easily distracted and requires redirection to remain on task. Patient returned to bed with 4 rails up and bed alarm activated. PT Short Term Goals Short Term Goals Time Frame: Jan 05, 2021 PT Contact Center Analyst Goals Contact Center Analyst Goals PT Group Home Goals Time Frame: Jan 12, 2021 Roll Left & Right (QC): 4 Sit to Lying (QC): 4 Lying-Sitting on Side/Bed(QC): 4 Sit to Stand (QC): 4 Chair/Rgx-fi-Odfpq Xfer(QC): 4 Toilet Transfer (QC): 4 Does the Patient Walk: No and Walking Goal IS indicated Walk 10 feet (QC): 3 Walk 50ft with 2 Turns (QC): 3 PT Plan Treatment/Plan Treatment Plan: Continue Plan of Care Treatment Plan: Bed Mobility, Education, Functional Activity Jem, Functional Strength, Group Therapy, Gait, Safety, Therapeutic Exercise, Transfers Treatment Duration: Mar 02, 2021 Frequency: 6 times per week Estimated Hrs Per Day: .25 hour per day Time/GCodes Time In: 1325 Time Out: 1337 Total Billed Treatment Time: 12 Total Billed Treatment 1 visit GT 12 min ALIZE GALDAMEZ PT Jan 18, 2021 13:50
[2021-01-18 15:18] VITALS: BP 101/63
[2021-01-18] MEDS: ENOXAPARIN 40 MG/0.4 ML (LOVENOX) SYR SC SCH (17:37)
[2021-01-18] MEDS: polyethylene glycoL POWDER 17 GM (MIRALAX) PACK PO SCH (20:04)
[2021-01-18 23:45] VITALS: BP 115/74
[2021-01-19] MEDS: LORazepam 1 MG (ATIVAN) TAB PO PRN ×2 (00:28→21:33)
[2021-01-19] MEDS: LORazepam INJ 2 MG/ML (ATIVAN) VIAL IVP PRN (02:07)
[2021-01-19] MEDS: THIAMINE 100 MG (VITAMIN B-1) TAB PO SCH (06:19)
--- NOTE | 2021-01-19 07:17 | Occupational Ther Daily Note ---
OT Current Status-Daily Note Subjective Late Entry for 01/18/2021-Pt alert, walking with nrsg into bathroom. Pt confused. Mental Status/Objective Patient Orientation: Person, Confused ADL-Treatment Pt has shuffling gate and pushed FWW away while going to bathroom. Assisted nrsg with pt due to confusion and decreased balance with ambulation. Pt required assist to manipulate clothing and cleanse after incontinent BM. After session, pt sitting in recliner with call light/phone in reach. All needs met in room. Safety measures in place. Therapy Code Descriptions/Definitions Functional [place] Measure: 0=Not Assessed/NA 4=Minimal Assistance 1=Total Assistance 5=Supervision or Setup 2=Maximal Assistance 6=Modified [place] 3=Moderate Assistance 7=Complete IndependenceSCALE: Activities may be completed with or without assistive devices. 1-Neksplkcqp-ifvjqrj completes the activity by him/herself with no assistance from a helper. 5-Set-up or Clean-up Assistance-helper sets up or cleans up; patient completes activity. [place] assists only prior to or following the activity. 4-Supervision or Touching Assistance-helper provides verbal cues and/or touching/steadying and/or contact guard assistance as patient completes activity. Assistance may be provided throughout the activity or intermittently. 3-Partial/Moderate Assistance-helper does LESS THAN HALF the effort. [place] lifts, holds or supports trunk or limbs, but provides less than half the effort. 2-Substantial/Maximal Assistance-helper does MORE THAN HALF the effort. [place] lifts or holds trunk or limbs and provides more than half the effort. 8-Ljxkgjlds-fbanuz does ALL the effort. Patient does none of the effort to complete the activity. Or, the assistance of 2 or more helpers is required for the patient to complete the activity. If activity was not attempted, code reason: 7-Patient Refused. 9-Not Applicable-not attempted and the patient did not perform the activity before the current illness, exacerbation or injury. 10-Not Attempted due to Environmental Limitations-(lack of equipment, weather restraints, etc.). 88-Not Attempted due to Medical Conditions or Safety Concerns. OT Correction Goals Wet Process [place] Goals Time Frame: Feb 05, 2021 Eating (QC): 6 Oral Hygiene (QC): 4 Toileting Hygiene (QC): 4 Lower Body Dressing (QC): 3 On/Off Footwear (QC): 3 1=Demonstrate adherence to instructed precautions during ADL tasks. 2=Patient will verbalize/demonstrate understanding of assistive devices/modifications for ADL. 3=Patient will improve strength/tolerance for activity to enable patient to perform ADL's. OT Education/Plan Problem List/Assessment Assessment: Impaired Cognition Discharge Recommendations Plan/Recommendations: Continue POC Treatment Plan/Plan of Care Patient would benefit from OT for education, treatment and training to promote independence in ADL's, mobility, safety and/or upper extremity function for ADL's. Plan of Care: ADL Retraining, Caregiver Training, Cognitive Retraining, Functional Mobility, Group Exercise/Act as Ind, UE Funct Exercise/Act Treatment Duration: Feb 05, 2021 Frequency: 5 times per week Estimated Hrs Per Day: .25 hour per day Rehab Potential: Poor Time/GCodes Start Time: 11:15 Stop Time: 11:35 Total Time Billed (hr/min): 20 Billed Treatment Time 1 visit-ADL 1 (20 min) Late Entry from 01/18/2021 DALIA TIM Jan 19, 2021 07:17
[2021-01-19 08:00] VITALS: BP 100/61
[2021-01-19] MEDS: KCL 20 MEQ TAB (K-DUR) PO SCH (08:00)
[2021-01-19] MEDS: POTASSIUM CL 10MEQ/50ML IVPB 50 ML IV SCH (08:00)
[2021-01-19] MEDS: MAGNESIUM 1 GM/100 ML IVPB 100 ML IV SCH (08:00)
[2021-01-19 08:33] LABS: BASOPHILS # (AUTO) 0.1 10^3/uL (0.0-0.1); BASOPHILS % (AUTO) 1 % (0-10); EOSINOPHILS # (AUTO) 0.2 10^3/uL (0.0-0.3); EOSINOPHILS % (AUTO) 3 % (0-10); HEMATOCRIT 42 % (40-54); HEMOGLOBIN 14.5 g/dL (13.3-17.7); LYMPHOCYTES # (AUTO) 1.8 10^3/uL (1.0-4.0); LYMPHOCYTES % (AUTO) 25 % (12-44); MEAN CORPUSCULAR HEMOGLOBIN 33 pg (25-34); MEAN CORPUSCULAR HGB CONC 34 g/dL (32-36); MEAN CORPUSCULAR VOLUME 96 fL (80-99); MEAN PLATELET VOLUME 10.4 fL (9.0-12.2); MONOCYTES # (AUTO) 0.6 10^3/uL (0.0-1.0); MONOCYTES % (AUTO) 8 % (0-12); NEUTROPHILS # (AUTO) 4.5 10^3/uL (1.8-7.8); NEUTROPHILS % (AUTO) 63 % (42-75); PLATELET COUNT 230 10^3/uL (130-400); WHITE BLOOD COUNT 7.2 10^3/uL (4.3-11.0)
--- NOTE | 2021-01-19 08:53 | Physical Therapy Daily Note ---
PT Daily Note-Current Subjective Patient in recliner in hallway with sitsarmad, agrees to PT, has no complaints of pain. Patient seems pleasantly confused. Leonarda said he was brought into the hallway because the activity helps to entertain him, he was getting restless in his room. Appearance Patient in recliner in hallway with leonarda post tx. Mental Status Patient Orientation: Person, Confused Transfers SCALE: Activities may be completed with or without assistive devices. 7-Lfxawmtvuz-hudkztp completes the activity by him/herself with no assistance from a helper. 5-Set-up or Clean-up Assistance-helper sets up or cleans up; patient completes activity. [place] assists only prior to or following the activity. 4-Supervision or Touching Assistance-helper provides verbal cues and/or touching/steadying and/or contact guard assistance as patient completes activity. Assistance may be provided throughout the activity or intermittently. 3-Partial/Moderate Assistance-helper does LESS THAN HALF the effort. [place] li fts, holds or supports trunk or limbs, but provides less than half the effort. 2-Substantial/Maximal Assistance-helper does MORE THAN HALF the effort. [place] lifts or holds trunk or limbs and provides more than half the effort. 3-Jcsqbmoet-tygobs does ALL the effort. Patient does none of the effort to complete the activity. Or, the assistance of 2 or more helpers is required for the patient to complete the activity. If activity was not attempted, code reason: 7-Patient Refused. 9-Not Applicable-not attempted and the patient did not perform the activity before the current illness, exacerbation or injury. 10-Not Attempted due to Environmental Limitations-(lack of equipment, weather restraints, etc.). 88-Not Attempted due to Medical Conditions or Safety Concerns. Sit to Stand (QC): 4 Chair/Zsr-cx-Ltbxr Xfer(QC): 3 Patient needs guidance when turning to sit Weight Bearing Right Lower Extremity: Right Full Weight Bearing Left Lower Extremity: Left Full Weight Bearing Gait Training Distance: 150' Walk 10 feet (QC): 3 Walk 50 ft with 2 Turns(QC): 3 Walk 150 ft (QC): 3 Gait Assistive Device: FWW Patient ambulates slowly, shuffling gait, slumped posture with flexed knees, needs assist guiding walker and to stay on task Treatments transfers, ambulation Assessment Current Status: Poor Progress patient confused PT Short Term Goals Short Term Goals Time Frame: Jan 05, 2021 PT Wind Farm Support Specialist Goals Wind Farm Support Specialist Goals PT Wind Farm Support Specialist Goals Time Frame: Jan 12, 2021 Roll Left & Right (QC): 4 Sit to Lying (QC): 4 Lying-Sitting on Side/Bed(QC): 4 Sit to Stand (QC): 4 Chair/Jym-za-Fmwgm Xfer(QC): 4 Toilet Transfer (QC): 4 Does the Patient Walk: No and Walking Goal IS indicated Walk 10 feet (QC): 3 Walk 50ft with 2 Turns (QC): 3 PT Plan Problem List Problem List: Activity Tolerance, Functional Strength, Safety, Balance, Gait, Transfer, Bed Mobility, ROM Treatment/Plan Treatment Plan: Continue Plan of Care Treatment Plan: Bed Mobility, Education, Functional Activity Jem, Functional Strength, Group Therapy, Gait, Safety, Therapeutic Exercise, Transfers Treatment Duration: Mar 02, 2021 Frequency: 6 times per week Estimated Hrs Per Day: .25 hour per day Safety Risks/Education Patient Education: Gait Training, Transfer Techniques, Correct Positioning, Safety Issues Teaching Recipient: Patient Teaching Methods: Demonstration, Discussion Response to Teaching: Reinforcement Needed Time/GCodes Time In: 0831 Time Out: 0843 Total Billed Treatment Time: 12 Total Billed Treatment 1 visit GT FÁTIMA LUJAN PT Jan 19, 2021 08:53
[2021-01-19] MEDS: meTOprolol TARTRATE 50 MG (LOPRESSOR) TAB PO SCH ×2 (09:20→23:48)
[2021-01-19] MEDS: LORazepam 1 MG (ATIVAN) TAB PO SCH ×3 (09:20→20:14)
[2021-01-19] MEDS: risperiDONE 2 MG (RisperDAL) TAB PO SCH ×2 (09:20→20:13)
[2021-01-19] MEDS: PYRIDOXINE (VITAMIN B-6) 50 MG TABLET PO SCH (09:20)
[2021-01-19] MEDS: DOCUSATE SODIUM 100 MG (COLACE) CAP PO SCH ×2 (09:20→20:13)
[2021-01-19] MEDS: FOLIC ACID 1 MG TAB PO SCH (09:20)
[2021-01-19 09:41] LABS: CALCIUM 9.5 MG/DL (8.5-10.1); CREATININE SERUM 0.78 MG/DL (0.60-1.30); POTASSIUM 3.8 MMOL/L (3.6-5.0)
--- NOTE | 2021-01-19 11:09 | Occupational Ther Daily Note ---
OT Current Status-Daily Note Subjective Pt sitting in recliner with 1:1 sitter in the [place]. Pt confused. No c/o pain. Mental Status/Objective Patient Orientation: Person, Confused Attachments: IV ADL-Treatment Therapy Code Descriptions/Definitions Functional [place] Measure: 0=Not Assessed/NA 4=Minimal Assistance 1=Total Assistance 5=Supervision or Setup 2=Maximal Assistance 6=Modified [place] 3=Moderate Assistance 7=Complete IndependenceSCALE: Activities may be completed with or without assistive devices. 0-Muqmkcdvow-rcobyrr completes the activity by him/herself with no assistance from a helper. 5-Set-up or Clean-up Assistance-helper sets up or cleans up; patient completes activity. [place] assists only prior to or following the activity. 4-Supervision or Touching Assistance-helper provides verbal cues and/or touching/steadying and/or contact guard assistance as patient completes activity. Assistance may be provided throughout the activity or intermittently. 3-Partial/Moderate Assistance-helper does LESS THAN HALF the effort. [place] lift s, holds or supports trunk or limbs, but provides less than half the effort. 2-Substantial/Maximal Assistance-helper does MORE THAN HALF the effort. [place] lifts or holds trunk or limbs and provides more than half the effort. 8-Lrxfftcbp-qrblxk does ALL the effort. Patient does none of the effort to complete the activity. Or, the assistance of 2 or more helpers is required for the patient to complete the activity. If activity was not attempted, code reason: 7-Patient Refused. 9-Not Applicable-not attempted and the patient did not perform the activity before the current illness, exacerbation or injury. 10-Not Attempted due to Environmental Limitations-(lack of equipment, weather restraints, etc.). 88-Not Attempted due to Medical Conditions or Safety Concerns. Other Treatment Ambulated throughout [place] using FWW. Pt required verbal and physical cues for hand placement during sit to stand and to grasp FWW. Pt requires directional cues and assist to manage FWW during ambulation. After session, pt sitting in recliner with 1:1 sitter present. All needs met in room. OT Process Inspector Goals Skilled Nursing Goals Time Frame: Feb 05, 2021 Eating (QC): 6 Oral Hygiene (QC): 4 Toileting Hygiene (QC): 4 Lower Body Dressing (QC): 3 On/Off Footwear (QC): 3 1=Demonstrate adherence to instructed precautions during ADL tasks. 2=Patient will verbalize/demonstrate understanding of assistive devices/modifications for ADL. 3=Patient will improve strength/tolerance for activity to enable patient to perform ADL's. OT Education/Plan Problem List/Assessment Assessment: Decreased Activ Tolerance, Decreased Safety Aware, Decreased UE Strength, Impaired Cognition, Impaired Coordination, Impaired Funct Balance, Impaired Self-Care Skills Discharge Recommendations Plan/Recommendations: Continue POC Treatment Plan/Plan of Care Patient would benefit from OT for education, treatment and training to promote independence in ADL's, mobility, safety and/or upper extremity function for ADL's. Plan of Care: ADL Retraining, Caregiver Training, Cognitive Retraining, Functional Mobility, Group Exercise/Act as Ind, UE Funct Exercise/Act Treatment Duration: Feb 05, 2021 Frequency: 5 times per week Estimated Hrs Per Day: .25 hour per day Rehab Potential: Poor Time/GCodes Start Time: 08:30 Stop Time: 08:41 Total Time Billed (hr/min): 11 Billed Treatment Time 1 visit-FA 1 (11 min) DALIA TIM Jan 19, 2021 11:09
--- NOTE | 2021-01-19 14:53 | Progress Note - Hospitalist ---
Subjective HPI/CC On Admission Date Seen by Provider: Jan 19, 2021 Time Seen by Provider: 11:20 Mr. Salinas is a 50-year-old white male presented to the office at his 's insistence who accompanied him due to a recent history of falls. He reports his first fall on November 14 at which time he injured his low back. Following that ti me he has noted numbness in his legs and has had for 5 subsequent falls none from height. He denied headache but reported generalized weakness. He admitted to longstanding heavy alcohol consumption for which he reports he drinks Granda light 3-4 sixpacks per day. It has been 7 years since his last office visit and he only came in because of his 's insistence. Ports his appetite has been poor and he thinks he is probably lost 20 to 30 pounds by our office scales compared to 7 years ago he is down 40 pounds. He reports some nausea denies abdominal pain denies orange urine and he does not recall the last period of time he left without heavy alcohol consumption. 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 He reports onset of a tremor for at least the past several months worse with action less so at rest and noting that when he drinks his tremor goes away he denies knowledge of any family history for tremor essential or Parkinson's disease. He denies night sweats chills fever orthopnea PND or pedal edema and denies abdominal distention is noted no melena or bright red blood per rectum. Subjective/Events-last exam He remains confused. He denies any shortness of breath. He denies pain. We had a family meeting with his , Melissa, and family friend, Dakota Islas. We discussed all of the events of his hospital stay to this point. We discussed the workup which has been done to this point. We discussed his current symptoms and working diagnosis. We discussed attempting to transfer the patient to [facility] last week which was denied. We also discussed attempted transfer yesterday which resulted in no accepting facilities despite multiple hospitals being contacted by "[facility]". We discussed the plan to discharge him to a facility because he is medically stable. We talked about setting up a neurology evaluation as an outpatient. They were agreeable to us trying to set up placement and requested [facility] prison facility at [place], [place]. We will pursue placement at a prison facility. Objective Exam Vital Signs Vital Signs Date Time Temp Pulse Resp B/P (MAP) Pulse Ox O2 Delivery O2 Flow Rate FiO2 01/19/21 08:00 36.4 111 18 100/61 (74) 99 01/19/21 08:00 Room Air Capillary Refill : Less Than 3 Seconds General Appearance: No Apparent Distress, Chronically ill, Thin Respiratory: Lungs Clear, Normal Breath Sounds, No Respiratory Distress Cardiovascular: Regular Rate, Rhythm, No Edema, No Murmur Gastrointestinal: Normal Bowel Sounds, Non Tender, Soft Extremity: Normal Inspection, Non Tender, No Pedal Edema Neurologic/Psychiatric: Alert, Disoriented Skin: Normal Color, Warm/Dry Results/Procedures Lab Laboratory Tests 01/19/21 08:20 Patient resulted labs reviewed. 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 Alcohol withdrawal with perceptual disturbance Alcohol dependence Alcohol myopathy Obstructive sleep apnea MRI with no acute abnormalities, possible normal pressure hydrocephalus Lumbar puncture unrevealing, no improvement Continue vitamins and supplements Continue Risperdal Ativan as needed SW consulted, appreciate assistance now requesting second opinion [facility] transfer attempted last week, not accepted [facility] contacted, attempting neurology transfer per family request, no accepting facilities yesterday or thus far today Sending referrals for placement DVT prophylaxis: Lovenox Alcoholic hepatitis, resolved Hyponatremia, resolved Hypokalemia, resolved Tachycardia, resolved UTI, resolved Diagnosis/Problems Diagnosis/Problems (1) Wernicke-Korsakoff syndrome (alcoholic) Status: Acute (2) Alcohol withdrawal Status: Acute Qualifiers: Complication of substance-induced condition: with perceptual disturbance Qualified Codes: F10.232 - Alcohol dependence with withdrawal with perceptual disturbance (3) Alcohol dependence Status: Acute Qualifiers: Substance use status: in withdrawal Complication of substance-induced condition: with perceptual disturbance Qualified Codes: F10.232 - Alcohol dependence with withdrawal with perceptual disturbance (4) Alcoholic hepatitis without ascites Status: Resolved Resolution Date/Time: 12/24/20 @ 12:41 (5) Alcohol myopathy Status: Acute (6) Recurrent falls Status: Acute (7) UTI (urinary tract infection) Status: Acute ANIL WYATT MD Jan 19, 2021 14:53
[2021-01-19 15:11] VITALS: BP 123/89
[2021-01-19] MEDS: ENOXAPARIN 40 MG/0.4 ML (LOVENOX) SYR SC SCH (16:04)
[2021-01-19] MEDS: polyethylene glycoL POWDER 17 GM (MIRALAX) PACK PO SCH (21:41)
[2021-01-20] VITALS: BP 111/76
[2021-01-20] MEDS: LORazepam 1 MG (ATIVAN) TAB PO PRN ×2 (04:01→15:29)
[2021-01-20] MEDS: THIAMINE 100 MG (VITAMIN B-1) TAB PO SCH (06:28)
[2021-01-20 07:49] VITALS: BP 103/72
[2021-01-20] MEDS: DOCUSATE SODIUM 100 MG (COLACE) CAP PO SCH ×2 (09:11→21:56)
[2021-01-20] MEDS: FOLIC ACID 1 MG TAB PO SCH (09:12)
[2021-01-20] MEDS: PYRIDOXINE (VITAMIN B-6) 50 MG TABLET PO SCH (09:12)
[2021-01-20] MEDS: LORazepam 1 MG (ATIVAN) TAB PO SCH ×3 (09:12→21:55)
[2021-01-20] MEDS: meTOprolol TARTRATE 50 MG (LOPRESSOR) TAB PO SCH ×2 (09:12→21:55)
[2021-01-20] MEDS: risperiDONE 2 MG (RisperDAL) TAB PO SCH ×2 (09:12→21:55)
[2021-01-20 10:39] LABS: CALCIUM 9.5 MG/DL (8.5-10.1); CREATININE SERUM 0.83 MG/DL (0.60-1.30); POTASSIUM 3.8 MMOL/L (3.6-5.0)
--- NOTE | 2021-01-20 10:42 | Physical Therapy Daily Note ---
PT Daily Note-Current Subjective Patient very restless on this date. Mental Status Patient Orientation: Confused Transfers SCALE: Activities may be completed with or without assistive devices. 7-Fooqjgizfx-gwojmck completes the activity by him/herself with no assistance from a helper. 5-Set-up or Clean-up Assistance-helper sets up or cleans up; patient completes activity. [place] assists only prior to or following the activity. 4-Supervision or Touching Assistance-helper provides verbal cues and/or touching/steadying and/or contact guard assistance as patient completes activity. Assistance may be provided throughout the activity or intermittently. 3-Partial/Moderate Assistance-helper does LESS THAN HALF the effort. [place] lifts, holds or supports trunk or limbs, but provides less than half the effort. 2-Substantial/Maximal Assistance-helper does MORE THAN HALF the effort. [place] lifts or holds trunk or limbs and provides more than half the effort. 1-Knybtjrxn-kvjgxa does ALL the effort. Patient does none of the effort to co mplete the activity. Or, the assistance of 2 or more helpers is required for the patient to complete the activity. If activity was not attempted, code reason: 7-Patient Refused. 9-Not Applicable-not attempted and the patient did not perform the activity before the current illness, exacerbation or injury. 10-Not Attempted due to Environmental Limitations-(lack of equipment, weather restraints, etc.). 88-Not Attempted due to Medical Conditions or Safety Concerns. Lying to Sitting/Side of Bed(Q: 4 Sit to Stand (QC): 4 Chair/Bfp-hd-Uzlrd Xfer(QC): 4 Toilet Transfer (QC): 4 (x 3 sets for patient to try to have a BM) initially CGA assist with use of gait belt/patient removed gait belt and insisted on ambulating independently Weight Bearing Right Lower Extremity: Right Full Weight Bearing Left Lower Extremity: Left Full Weight Bearing Gait Training Distance: 75' Walk 10 feet (QC): 4 Walk 50 ft with 2 Turns(QC): 4 Gait Assistive Device: None SBA Assessment Patient able to toilet self and pull up depends during session. Ambulated in room without AD and SBA of PT with noted shuffle/festinating gait sequence. PT Short Term Goals Short Term Goals Time Frame: Jan 05, 2021 PT Wildlife Ecologist Goals Wildlife Ecologist Goals PT Wildlife Ecologist Goals Time Frame: Jan 12, 2021 Roll Left & Right (QC): 4 Sit to Lying (QC): 4 Lying-Sitting on Side/Bed(QC): 4 Sit to Stand (QC): 4 Chair/Dip-zc-Ucqkx Xfer(QC): 4 Toilet Transfer (QC): 4 Does the Patient Walk: No and Walking Goal IS indicated Walk 10 feet (QC): 3 Walk 50ft with 2 Turns (QC): 3 PT Plan Treatment/Plan Treatment Plan: Continue Plan of Care Treatment Plan: Bed Mobility, Education, Functional Activity Jem, Functional Strength, Group Therapy, Gait, Safety, Therapeutic Exercise, Transfers Treatment Duration: Mar 02, 2021 Frequency: 6 times per week Estimated Hrs Per Day: .25 hour per day Time/GCodes Time In: 931 Time Out: 1000 Total Billed Treatment Time: 29 Total Billed Treatment 1 visit FA x 2 29 min ALIZE GALDAMEZ PT Jan 20, 2021 10:42
[2021-01-20] MEDS: POTASSIUM CL 10MEQ/50ML IVPB 50 ML IV SCH (11:03)
[2021-01-20] MEDS: KCL 20 MEQ TAB (K-DUR) PO SCH (11:04)
[2021-01-20] MEDS: MAGNESIUM 1 GM/100 ML IVPB 100 ML IV SCH (11:04)
--- NOTE | 2021-01-20 12:01 | Occupational Ther Daily Note ---
OT Current Status-Daily Note Subjective Pt alert and agitated. 1:1 sitter in room. Pt is vocal and is able to answer questions though does not answer on topic. Mental Status/Objective Patient Orientation: Person, Confused Attachments: IV ADL-Treatment Given shirt, pt able to don/doff shirt by self. Given pants, pt able to don/doff pants with assistance to make sure feet are all the way through pant legs. Standing with SBA, pt able to hike pants over hips. Pt then was given fidgets(nut/bolts) to work on fine motor and to keep hands busy and stay focused on tasks. Pt able to complete movements though required verbal and physical cues to stay on task and focus on untightening nut from bolt and place in designated area. After session, pt sitting in recliner with call light/phone in reach. 1:1 sitter present. Therapy Code Descriptions/Definitions Functional [place] Measure: 0=Not Assessed/NA 4=Minimal Assistance 1=Total Assistance 5=Supervision or Setup 2=Maximal Assistance 6=Modified [place] 3=Moderate Assistance 7=Complete IndependenceSCALE: Activities may be completed with or without assistive devices. 4-Mexjzvlexq-fpzwaqs completes the activity by him/herself with no assistance from a helper. 5-Set-up or Clean-up Assistance-helper sets up or cleans up; patient completes activity. [place] assists only prior to or following the activity. 4-Supervision or Touching Assistance-helper provides verbal cues and/or t ouching/steadying and/or contact guard assistance as patient completes activity. Assistance may be provided throughout the activity or intermittently. 3-Partial/Moderate Assistance-helper does LESS THAN HALF the effort. [place] lifts, holds or supports trunk or limbs, but provides less than half the effort. 2-Substantial/Maximal Assistance-helper does MORE THAN HALF the effort. [place] lifts or holds trunk or limbs and provides more than half the effort. 5-Mtimkqnfl-kphjqw does ALL the effort. Patient does none of the effort to complete the activity. Or, the assistance of 2 or more helpers is required for the patient to complete the activity. If activity was not attempted, code reason: 7-Patient Refused. 9-Not Applicable-not attempted and the patient did not perform the activity before the current illness, exacerbation or injury. 10-Not Attempted due to Environmental Limitations-(lack of equipment, weather restraints, etc.). 88-Not Attempted due to Medical Conditions or Safety Concerns. Upper Body Dressing (QC): 5 Lower Body Dressing (QC): 4 OT Post Hole Digger Goals Group Home Goals Time Frame: Feb 05, 2021 Eating (QC): 6 Oral Hygiene (QC): 4 Toileting Hygiene (QC): 4 Lower Body Dressing (QC): 3 On/Off Footwear (QC): 3 1=Demonstrate adherence to instructed precautions during ADL tasks. 2=Patient will verbalize/demonstrate understanding of assistive devices/modifications for ADL. 3=Patient will improve strength/tolerance for activity to enable patient to perform ADL's. OT Education/Plan Problem List/Assessment Assessment: Decreased Activ Tolerance, Decreased Safety Aware, Impaired Cognition Discharge Recommendations Plan/Recommendations: Continue POC Treatment Plan/Plan of Care Patient would benefit from OT for education, treatment and training to promote independence in ADL's, mobility, safety and/or upper extremity function for ADL's. Plan of Care: ADL Retraining, Caregiver Training, Cognitive Retraining, Functional Mobility, Group Exercise/Act as Ind, UE Funct Exercise/Act Treatment Duration: Feb 05, 2021 Frequency: 5 times per week Estimated Hrs Per Day: .25 hour per day Rehab Potential: Poor Time/GCodes Start Time: 10:00 Stop Time: 10:15 Total Time Billed (hr/min): 15 Billed Treatment Time 1 visit-ADL 1 (15 min) DALIA TIM Jan 20, 2021 12:01
--- NOTE | 2021-01-20 14:11 | Progress Note - Hospitalist ---
Subjective HPI/CC On Admission Date Seen by Provider: Jan 20, 2021 Time Seen by Provider: 10:40 Mr. Salinas is a 50-year-old white male presented to the office at his 's insistence who accompanied him due to a recent history of falls. He reports his first fall on November 14 at which time he injured his low back. Following that ti me he has noted numbness in his legs and has had for 5 subsequent falls none from height. He denied headache but reported generalized weakness. He admitted to longstanding heavy alcohol consumption for which he reports he drinks Granda light 3-4 sixpacks per day. It has been 7 years since his last office visit and he only came in because of his 's insistence. Ports his appetite has been poor and he thinks he is probably lost 20 to 30 pounds by our office scales compared to 7 years ago he is down 40 pounds. He reports some nausea denies abdominal pain denies orange urine and he does not recall the last period of time he left without heavy alcohol consumption. 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 He reports onset of a tremor for at least the past several months worse with action less so at rest and noting that when he drinks his tremor goes away he denies knowledge of any family history for tremor essential or Parkinson's disease. He denies night sweats chills fever orthopnea PND or pedal edema and denies abdominal distention is noted no melena or bright red blood per rectum. Subjective/Events-last exam He remains confused. He has no new complaints or concerns. Objective Exam Vital Signs Vital Signs Date Time Temp Pulse Resp B/P (MAP) Pulse Ox O2 Delivery O2 Flow Rate FiO2 01/20/21 08:00 Room Air 01/20/21 07:49 35.7 76 20 103/72 (82) 96 Capillary Refill : Less Than 3 Seconds General Appearance: No Apparent Distress, Chronically ill Respiratory: Lungs Clear, Normal Breath Sounds, No Respiratory Distress Cardiovascular: Regular Rate, Rhythm, No Edema, No Murmur Gastrointestinal: Normal Bowel Sounds, Non Tender, Soft Extremity: Normal Inspection, Non Tender, No Pedal Edema Neurologic/Psychiatric: Alert, Disoriented, Motor Weakness, Other (shuffling gait) Skin: Normal Color, Warm/Dry Results/Procedures Lab Laboratory Tests 01/20/21 10:05 Patient resulted labs reviewed. 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 Alcohol withdrawal with perceptual disturbance Alcohol dependence Alcohol myopathy Obstructive sleep apnea MRI with no acute abnormalities, possible normal pressure hydrocephalus Lumbar puncture unrevealing, no improvement Continue vitamins and supplements Continue Risperdal Ativan as needed SW consulted, appreciate assistance requested second opinion [facility] transfer attempted last week, not accepted [facility] contacted, attempting neurology transfer per family request, no accepting facilities thus far Referrals sent for placement, working toward [facility] in [place] DVT prophylaxis: Lovenox Alcoholic hepatitis, resolved Hyponatremia, resolved Hypokalemia, resolved Tachycardia, resolved UTI, resolved Diagnosis/Problems Diagnosis/Problems (1) Wernicke-Korsakoff syndrome (alcoholic) Status: Acute (2) Alcohol withdrawal Status: Acute Qualifiers: Complication of substance-induced condition: with perceptual disturbance Qualified Codes: F10.232 - Alcohol dependence with withdrawal with perceptual disturbance (3) Alcohol dependence Status: Acute Qualifiers: Substance use status: in withdrawal Complication of substance-induced condition: with perceptual disturbance Qualified Codes: F10.232 - Alcohol dependence with withdrawal with perceptual disturbance (4) Alcoholic hepatitis without ascites Status: Resolved Resolution Date/Time: 12/24/20 @ 12:41 (5) Alcohol myopathy Status: Acute (6) Recurrent falls Status: Acute (7) UTI (urinary tract infection) Status: Acute ANIL WYATT MD Jan 20, 2021 14:11
[2021-01-20] MEDS: ENOXAPARIN 40 MG/0.4 ML (LOVENOX) SYR SC SCH (15:29)
[2021-01-20 15:40] VITALS: BP 96/60
[2021-01-20] MEDS: LORazepam INJ 2 MG/ML (ATIVAN) VIAL IVP PRN (17:36)
[2021-01-20] MEDS: polyethylene glycoL POWDER 17 GM (MIRALAX) PACK PO SCH (21:56)
[2021-01-20 23:12] VITALS: BP 112/69
[2021-01-21] MEDS: LORazepam 1 MG (ATIVAN) TAB PO PRN (02:48)
[2021-01-21] MEDS: THIAMINE 100 MG (VITAMIN B-1) TAB PO SCH (06:13)
[2021-01-21 07:11] LABS: CALCIUM 9.3 MG/DL (8.5-10.1); CREATININE SERUM 0.76 MG/DL (0.60-1.30); MAGNESIUM 2.2 MG/DL (1.6-2.4)
[2021-01-21] MEDS: POTASSIUM CL 10MEQ/50ML IVPB 50 ML IV SCH (07:12)
[2021-01-21] MEDS: MAGNESIUM 1 GM/100 ML IVPB 100 ML IV SCH (07:13)
[2021-01-21] MEDS: KCL 20 MEQ TAB (K-DUR) PO SCH (07:15)
[2021-01-21 08:00] VITALS: BP 109/71
[2021-01-21] MEDS: meTOprolol TARTRATE 50 MG (LOPRESSOR) TAB PO SCH (08:02)
[2021-01-21] MEDS: risperiDONE 2 MG (RisperDAL) TAB PO SCH (08:02)
[2021-01-21] MEDS: PYRIDOXINE (VITAMIN B-6) 50 MG TABLET PO SCH (08:02)
[2021-01-21] MEDS: FOLIC ACID 1 MG TAB PO SCH (08:02)
[2021-01-21] MEDS: DOCUSATE SODIUM 100 MG (COLACE) CAP PO SCH (08:02)
[2021-01-21] MEDS: LORazepam 1 MG (ATIVAN) TAB PO SCH (08:03)
[2021-01-21] MEDS: LORazepam INJ 2 MG/ML (ATIVAN) VIAL IVP PRN (10:17)
[2021-01-21] MEDS ORDERED: THIA100T80 PO (10:40)
[2021-01-21] MEDS ORDERED: RISP2TAB84 PO (10:40)
[2021-01-21] MEDS ORDERED: METO50TA15 PO (10:40)
[2021-01-21] MEDS ORDERED: FOLI1TAB33 PO (10:40)
[2021-01-21] MEDS ORDERED: Lorazepam PO (10:40)
[2021-01-21] MEDS ORDERED: PYRI50TA PO (10:40)
[2021-01-21 12:09] VITALS: BP 109/71
--- NOTE | 2021-01-21 16:29 | Discharge Summary ---
Discharge Summary Hospital Course Was the Problem List Reviewed?: Yes Problems/Dx: (1) Wernicke-Korsakoff syndrome (alcoholic) Status: Acute (2) Alcohol withdrawal Status: Acute Qualifiers: Qualified Codes: F10.232 - Alcohol dependence with withdrawal with perceptual disturbance (3) Alcohol dependence Status: Acute Qualifiers: Qualified Codes: F10.232 - Alcohol dependence with withdrawal with perceptual disturbance (4) Alcoholic hepatitis without ascites Status: Resolved (5) Alcohol myopathy Status: Acute (6) Recurrent falls Status: Acute (7) UTI (urinary tract infection) Status: Resolved Hospital Course Date of Admission: Dec 20, 2020 at 16:49 Admission Diagnosis : Alcohol withdrawal syndrome Family Physician/Provider: Raven Domínguez MD Date of Discharge: 01/21/21 Discharge Diagnosis: Persistent encephalopathy, possible Wernicke-Korsakoff syndrome Hospital Course: Ethan Salinas is a 60 year old male who was directly admitted by Dr. Domínguez with alcohol withdrawal and concern for Wernicke encephalopathy. He was placed on the CIWA protocol and given Ativan for alcohol withdrawal. He was given vitamins and thiamine supplementation for possible Wernicke. He failed to improve despite these measures. His lab workup was unrevealing for a cause of his encephalopathy. He underwent MRI Brain which revealed no acute abnormalities, but showed possible mild ventricular enlargement which could be due to normal pressure hydrocephalus. He underwent a lumbar puncture which had a normal opening pressure, normal cell counts, no growth on culture, and negative VDRL. He showed no signs of improvement following the lumbar puncture. He remained persistently encephalopathic. Transfer was discussed with [facility] but transfer was not recommended at that time. His symptoms continued and transfer was attempted again. Many hospitals refused transfer due to bed availability and obtaining transfer was difficult. He was medically stable and discharge to a facility with neurology follow up as an outpatient was planned. Transfer attempts continued though and he was ultimately accepted for transfer to [facility] with neurology consult. He was transferred in stable condition and his Melissa was present and appreciate of our efforts at the time of transfer. Labs and Pending Lab Test: Laboratory Tests 01/21/21 06:45: Sodium Level 136, Potassium Level 4.0, Chloride Level 103, Carbon Dioxide Level 22, Anion Gap 11, Blood Urea Nitrogen 10, Creatinine 0.76, Estimat Glomerular Filtration Rate 105, BUN/Creatinine Ratio 13, Glucose Level 99, Calcium Level 9.3, Magnesium Level 2.2 Microbiology 01/07/21 - Final, Complete 12/28/20 Urine Culture - Final, Complete Staph, Coag Neg ([facility]ER) Enterococcus faecalis 12/28/20 Blood Culture - Final, Complete No growth Home Meds Active Folic Acid 1 Mg Tablet 1 Mg PO DAILY 30 Days Vitamin B-6 (Pyridoxine HCl) 50 Mg Tablet 50 Mg PO DAILY 30 Days Vitamin B-1 (Thiamine HCl) 100 Mg Tablet 100 Mg PO DAILY@0700 30 Days [Lorazepam] 1 Tab 1 Mg PO Q4H PRN 7 Days Risperidone 2 Mg Tablet 2 Mg PO BID 30 Days Metoprolol Tartrate 50 Mg Tablet 100 Mg PO BID 30 Days Assessment/Pt Instructions Patient transferred to [place] for neurology evaluation Discharge Planning: >30 minutes discharge planning Discharge Instructions Discharge Diet: No Restrictions Activity as Tolerated: Yes Discharge Physical Examination Vital Signs Vital Signs Date Time Temp Pulse Resp B/P (MAP) Pulse Ox O2 Delivery O2 Flow Rate FiO2 01/21/21 12:09 36.2 90 20 109/71 97 Room Air 5.00 General Appearance: No Apparent Distress, Chronically ill, Thin HEENT: PERRL/EOMI, Pharynx Normal Respiratory: Lungs Clear, Normal Breath Sounds, No Respiratory Distress Cardiovascular: Regular Rate, Rhythm, No Edema, No Murmur Gastrointestinal: Normal Bowel Sounds, Non Tender, Soft Extremity: Normal Inspection, Non Tender, No Pedal Edema Skin: Normal Color, Warm/Dry Neurologic/Psychiatric: Alert, Disoriented, Motor Weakness, Other (ataxia, shuffling gait) Allergies: Coded Allergies: No Known Drug Allergies (Unverified , 12/20/20) Copy Copies To 1: RAVEN DOMÍNGUEZ MD Discharge Summary Date of Admission Dec 20, 2020 at 16:49 Date of Discharge Jan 21, 2021 at 11:10 Discharge Date: Jan 21, 2021 Discharge Time: 11:10 Admission Diagnosis Alcohol withdrawal Discharge Diagnosis Likely Wernicke-Korsakoff syndrome Persistent encephalopathy Alcohol withdrawal with perceptual disturbance Alcohol dependence Alcohol myopathy (1) Wernicke-Korsakoff syndrome (alcoholic) Status: Acute (2) Alcohol withdrawal Status: Acute Qualifiers: Qualified Codes: F10.232 - Alcohol dependence with withdrawal with perceptual disturbance (3) Alcohol dependence Status: Acute Qualifiers: Qualified Codes: F10.232 - Alcohol dependence with withdrawal with perceptual disturbance (4) Alcoholic hepatitis without ascites Status: Resolved (5) Alcohol myopathy Status: Acute (6) Recurrent falls Status: Acute (7) UTI (urinary tract infection) Status: Resolved ANIL WYATT MD Jan 21, 2021 16:29
== END 2021-01-21 11:10 | disposition short-term general hospital (02) | DRG 896 ==
LOC: CSD 16:49 → ICU 12-21 11:20 → 4TH 01-01 15:09
PROVIDERS: ADMIT Internal Medicine; ATTEND Internal Medicine
PROC: 009U3ZX Drainage of Spinal Canal, Percutaneous Approach, Diagnostic (ICD-10-PCS; principal; 2021-01-07)
DX: F10.251 Alcohol dependence with alcohol-induced psychotic disorder with hallucinations (principal); J96.01 Acute respiratory failure with hypoxia; G72.1 Alcoholic myopathy; E46 Unspecified protein-calorie malnutrition; E87.1 Hypo-osmolality and hyponatremia; E51.2 Wernicke's encephalopathy; N39.0 Urinary tract infection, site not specified; F10.231 Alcohol dependence with withdrawal delirium; K70.10 Alcoholic hepatitis without ascites; F10.232 Alcohol dependence with withdrawal with perceptual disturbance; Z68.23 Body mass index [BMI] 23.0-23.9, adult; Z91.81 History of falling; M54.50 Low back pain, unspecified; G47.33 Obstructive sleep apnea (adult) (pediatric); E87.6 Hypokalemia; D69.6 Thrombocytopenia, unspecified; R00.0 Tachycardia, unspecified
CPT/HCPCS: 36415; 70551; 71045; 72148; 80048; 80053; 80320; 80346; 81000; 82140; 82607; 82805; 83735; 84100; 84443; 85007; 85025; 85027; 85379; 85610; 85730; 86592; 86663; 86664; 86665; 86703; 87040; 87070; 87077; 87088; 87186; 87205; 87254; 88112; 89051; 93005; 93306